=== PATIENT | male | born 1950 | race Caucasian/White ===

== ENCOUNTER 2018-02-25 13:54 | Outpatient (REF) | payer MEDICARE, BC, SELFPAY ==
--- NOTE | 2018-02-25 13:49 | SKI_PTH ---
PATIENT: Nicholas Seth LOC: [facility] U#:[id number] AGE/SX: 67/M ROOM: RE02/25/[address]: Anders Al DO : 1950 BED: DIS: 02/25/2018 SPEC #: [id number] RECD: 02/25/18 18:09 STATUS: ALVARO REQ #: [id number] MARTÍN: 02/25/18 13:[address]: Anders Al DEPT: Surgical Specimen RECD BY: Kaya Mcgrath ENTERED: 02/25/18 18:12 SP TYPE: SKI OTHR DR: Joana Jane Tissues: 1 - SKIN BIOPSY(SHAVE/PUNCH) 2 - SKIN BIOPSY(SHAVE/PUNCH) Procedures: SKIN LEVEL 4 Comments: [id number]
== END 2018-02-25 14:14 ==
LOC: LBN 13:54
PROVIDERS: PCP Nurse Practitioner; Visit Provider Otolaryngology Otolaryngology/Facial Plastic Surgery
DX: L57.0 Actinic keratosis (principal)
CPT/HCPCS: 88305

== ENCOUNTER 2018-03-18 17:57 | Outpatient (REF) | payer MEDICARE, BC, SELFPAY ==
[2018-03-18 21:26] LABS: Anion Gap 9.6 mmol/L (3-11); BUN 17 mg/dL (7-18); CO2 30.4 mmol/L (21.0-32.0); CREATININE 1.15 mg/dL (0.70-1.30); Calcium 9.1 mg/dL (8.5-10.1); Chloride 98 mmol/L (98-107); Glucose 95 mg/dL (70-100); Potassium 3.9 mmol/L (3.5-5.1); Sodium 138 mmol/L (136-145)
== END 2018-03-18 18:17 ==
LOC: NCHCN 17:57
PROVIDERS: PCP Nurse Practitioner; Visit Provider Nurse Practitioner
DX: I10 Essential (primary) hypertension (principal)
CPT/HCPCS: 80048

== ENCOUNTER → 2018-08-12 15:06 | Outpatient (BNVA) | payer MEDICARE, BC, SELFPAY | PROVIDERS: PCP Nurse Practitioner; Referring Provider Nurse Practitioner; Visit Provider Student in an Organized Health Care Education/Training Program | DX: M17.11 Unilateral primary osteoarthritis, right knee (principal); M25.561 Pain in right knee; M17.12 Unilateral primary osteoarthritis, left knee | CPT/HCPCS: 20610; 99212; 99213; J1040 ==

== ENCOUNTER → 2018-09-16 15:11 | Outpatient (BNVA) | payer MEDICARE, BC, SELFPAY | PROVIDERS: PCP Nurse Practitioner; Referring Provider Nurse Practitioner; Visit Provider Student in an Organized Health Care Education/Training Program | DX: M25.562 Pain in left knee (principal); M17.12 Unilateral primary osteoarthritis, left knee; M17.11 Unilateral primary osteoarthritis, right knee | CPT/HCPCS: 99213 ==

== ENCOUNTER → 2019-04-24 15:51 | Outpatient (BNVA) | payer MEDICARE, BC, SELFPAY | PROVIDERS: PCP Nurse Practitioner; Referring Provider Nurse Practitioner; Visit Provider Physical Therapy Assistant | DX: Z12.11 Encounter for screening for malignant neoplasm of colon (principal); I10 Essential (primary) hypertension ==

== ENCOUNTER 2019-05-05 12:56 | Day surgery (SDC) | payer MEDICARE, BC, SELFPAY ==
--- NOTE | 2019-05-05 07:08 | COLE_ITS ---
Date of service: 05/05/19 Time of Service: 14:01 Colonoscopy Report Date of procedure: 05/05/19 Pre-op diagnosis general: Colon Cancer Screening Post-op diagnosis procedure note: other (polyps and scattered diverticulosis) Procedure: Colonoscopy with polypectomy Surgeon: Mimi Bledsoe Anesthesia proc note operative: other (General/ ASA 2/ Chelsey Khan CRNA) Estimated blood loss (mL): 5 Pathology: other (Ascending polyp, Transverse polyp x2, and Descending polyp) Complications: None Disposition: other (General/ ASA /) Indications: 68 y/o male with history of HTN presents for colonoscopy screening pre-op. His last screening was 12-15 years in [place], which was unremarkable. He denies a family history of colon cancer. He denies any changes in bowel habits including black tarry stools, abdominal pain, diarrhea or constipation. Of note he reports, over the past 6 months he has had 2 episodes of spots of blood on his BM. The bleeding does not persist and resolves spontaneously. Risks, benefits and complications have been reviewed. Complications include but are not limited to bleeding, pain, perforation, missed small lesion/polyp, sore throat, aspiration and adverse reaction to the medications. Questions were entertained and answered to their satisfaction and they wished to proceed. No guarantees were given or implied. Prep: Miralax/Dulcolax Procedure Start Time: 14:01 Procedure End Time: 14:44 Retraction Time: 29 minutes Findings: 4 polyps noted as well as scattered diverticula throughout the colon Procedure Description: After informed consent was obtained the patient was taken to the procedure room and placed in a left decubitous position. Monitors were applied and a time out was done. The patients name, date of , procedure, allergies to medications and metal in their body was reviewed. The patient was then sedated. Once sedated and comfortable a rectal exam was done. External exam was normal. Internal exam revealed a normal sphincter tone and no palpable masses. The prostate felt smooth. The scope was then introduced and retro-flexed. No internal hemorrhoids, polyps or masses were identified on retro-flexion. The scope was then advanced to the cecum without difficulty. The TI and appendiceal orifice were identified. The prep was adequate. The scope was then slowly retracted over 29 minutes back into the rectum. Polyps were removed in the ascending, transverse x2, and descending colon. mild donis-diverticulosis was also noted. The scope was removed and the patient was woken up and taken back to Same day surgery in stable condition. The patient tolerated the procedure well and there were no immediate complications. Follow up: The patient should follow up in 3-5 years unless they develop changes in bowel habits or other new gastrointestinal complaints.
--- NOTE | 2019-05-05 07:09 | W.PM.DSUDISC ---
Discharge Plan Disposition Patient Disposition: HOME Condition: Good Discharge Details Reason For Visit: SCREENING Attending Provider: Mimi Bledsoe Primary Care Provider: An Sheffield Home Meds and New Rx's Prescriptions: Continued simvastatin 10 MG tablet 10 mg PO DAILY RF: 0 Denavir 1.5 GM cream 1 ea Topical PRN PRNRF: 0 hydrochlorothiazide 25 MG tablet 25 mg PO DAILY RF: 0 sertraline 50 MG tablet 50 mg PO DAILY RF: 0 Discontinued polyethylene glycol 3350 17 gram/dose powder 238 g PO ONCE Qty: 238 RF: 0 bisacodyl [Dulcolax (bisacodyl)] 5 mg tablet,delayed release (DR/EC) 5 mg PO ONCE Qty: 4 RF: 0 Discharge Instructions Instructions: Colorectal Polyps (DC), Diverticulosis (DC) Additional Instructions: Findings: 4 polyps Diverticulosis Follow up: 3-5 years Please call if you develop: fevers >101.5 Nausea or Vomiting Abdominal pain that is not transient DAY SURGERY UNIT POST ENDOSCOPY INSTRUCTIONS 1. Because there will be medication in your system for the next 24 hours, you may feel a little sleepy. Your coordination will be affected. Therefore: a. Do not drive or operate dangerous equipment for 24 hours. b. Do not drink alcohol beverages for 24 hours (not even beer). c. Plan to go home and rest for the day. 2. Generally there are no restrictions on your activity after a day or so has gone by, but you may feel a bit fatigued for a few days. 3 After you arrive home you may have a light meal and return to a normal diet as you can tolerate it without feeling sick to your stomach. 4. After surgery, you may feel pain or discomfort. This should be only transient, but if it persists please contact your doctor. 5. If there are any questions regarding the findings of your procedure, please feel free to contact your doctor. 6. If you are unable to contact your doctor with a problem, contact the hospital at [phone]. 7. Continue all your regular medications unless directed otherwise. I understand the above instructions and have no questions. Signature of Patient or Responsible Adult Escort Date/Time Name of Responsible Adult Escort Signature of Nurse Date/Time Activity:: Activity as Tolerated Diet:: high fiber diet Discharge Orders Discharge Orders: Discharge Order (Routine); Ordered 05/05/19 Ordered By: Mimi Bledsoe
[2019-05-05 13:00] VITALS: BP 146/80; PULSE 73; RESP 16; TEMP 36.2; O2SAT 98
[2019-05-05] MEDS: Lactated Ringers 1,000 ML 80 ML IV (13:42)
--- NOTE | 2019-05-05 14:23 | BOWEL_PTH ---
PATIENT: Nicholas Seth LOC: [facility] U#:[id number] AGE/SX: 68/M ROOM: RE05/05/[address]: Mimi Bledsoe MD : 1950 BED: DIS: 05/05/2019 SPEC #: [id number] RECD: 05/05/19 18:09 STATUS: ALVARO RE #: [id number] MARTÍN: 05/05/19 14:[address]: Mimi Bledsoe DEPT: Surgical Specimen RECD BY: Kaya Mcgrath ENTERED: 05/05/19 18:10 SP TYPE: Bowel OTHR DR: An Sheffield Tissues: 1 - BIOPSY BOWEL 2 - BIOPSY BOWEL 3 - BIOPSY BOWEL Procedures: GROSS AND MICRO LEVEL 4 Comments: [id number]
[2019-05-05 15:15] VITALS: BP 143/79; PULSE 60; RESP 18; TEMP 36.4; O2SAT 97
== END 2019-05-05 15:56 | disposition home or self-care (01) ==
LOC: SUR 12:56
PROVIDERS: PCP Family Medicine; Visit Provider Surgery
PROC: 0DJD8ZZ Inspection of Lower Intestinal Tract, Via Natural or Artificial Opening Endoscopic (ICD-10-PCS; CPT 45378; principal; 2019-05-05 14:15)
DX: Z12.11 Encounter for screening for malignant neoplasm of colon (principal); D12.2 Benign neoplasm of ascending colon; D12.3 Benign neoplasm of transverse colon; K57.30 Diverticulosis of large intestine without perforation or abscess without bleeding; I10 Essential (primary) hypertension; G47.33 Obstructive sleep apnea (adult) (pediatric); Z99.89 Dependence on other enabling machines and devices
CPT/HCPCS: 45380; 88305

== ENCOUNTER 2019-05-07 12:39 | Outpatient (REF) | payer MEDICARE, BC, SELFPAY | END 2019-05-07 12:59 | LOC: NCHCN 12:39 | PROVIDERS: PCP Family Medicine; Visit Provider Family Medicine | DX: K12.2 Cellulitis and abscess of mouth (principal) | CPT/HCPCS: 87070 ==

== ENCOUNTER 2019-05-12 09:40 | Outpatient (CLI) | payer MEDICARE, BC, SELFPAY ==
--- NOTE | 2019-05-12 08:45 | DI.RAD_ITS ---
EXAM: XR KNEE LT 1V, XR KNEE RT 1V, XR STANDING ALIGNMENT INDICATION: knee pain. TECHNIQUE: 2D digital imaging was performed. FINDINGS: There are small bilateral joint effusions. There is mild spurring at the articular aspect of the pa tella bilaterally. There is severe narrowing of the left medial femoral tibial joint and periarticul ar spurring. There is varus angulation. Moderate to severe degenerative changes are seen at the med ial femoral tibial joint of the right knee, also causing some varus angulation. The hip joint spaces and ankle joint spaces are well maintained. The right femoral head projects 12 millimeters superior to the left. IMPRESSION: Degenerative changes of both knees, left greater than right. Leg length discrepancy. DATA REPOSITORY: RADIATION DOSE DELIVERED:
== END 2019-05-12 10:00 ==
PROVIDERS: PCP Family Medicine; Referring Provider Nurse Practitioner; Visit Provider Student in an Organized Health Care Education/Training Program
DX: M25.561 Pain in right knee (principal); M25.562 Pain in left knee; M17.0 Bilateral primary osteoarthritis of knee; M21.70 Unequal limb length (acquired), unspecified site; M25.461 Effusion, right knee; M25.462 Effusion, left knee; M17.12 Unilateral primary osteoarthritis, left knee
CPT/HCPCS: 99213; 73560; 77073

== ENCOUNTER 2019-07-15 08:57 | Outpatient (REF) | payer MEDICARE, BC, SELFPAY ==
[2019-07-15 21:28] LABS: HCT 43.3 % (40.0-50.0); HGB 15.4 g/dL (13.5-17.5); Mean Corp. HGB Concentration 35.6 g/dL (32.0-36.0); Mean Corpuscular Hemoglobin 32.6 pg (27.0-33.0); Mean Corpuscular Volume 91.5 fL (80-95); Mean Platelet Volume 10.1 fL (8.0-11.0); Platelet Count 242 x1000/uL (130-400); RBC 4.73 m/cumm (4.50-6.00); RBC Distribution Width 12.3 % (11.8-14.1); White Blood Cell Count 7.09 k/cumm (4.4-10.8)
[2019-07-15 23:21] LABS: ALT 20 U/L (16-63); AST 25 U/L (15-37); Anion Gap 5.4 mmol/L (3-11); BUN 18 mg/dL (7-18); CO2 32.6 mmol/L (21.0-32.0); Calcium 8.9 mg/dL (8.5-10.1); Calculated LDL 167 mg/dL (<100); Chloride 103 mmol/L (98-107); Cholesterol 249 mg/dL (<200); Folate 17.6 ng/mL (8.6-20.0); Glucose 86 mg/dL (74-106); HDL Cholesterol 47 mg/dL (40-60); Magnesium 2.2 mg/dL (1.8-2.4); Potassium 4.2 mmol/L (3.5-5.1); Sodium 141 mmol/L (136-145); TSH (W/Ref FT4) 1.56 uIU/mL (0.36-3.74); Triglyceride 178 mg/dL (<150); Vitamin B12 294 pg/mL (193-986)
== END 2019-07-15 09:17 ==
LOC: NCHCN 08:57
PROVIDERS: PCP Family Medicine; Visit Provider Nurse Practitioner Family
DX: E78.5 Hyperlipidemia, unspecified (principal); G25.81 Restless legs syndrome
CPT/HCPCS: 80048; 80061; 85027; 82607; 82746; 83735; 84443; 84450; 84460

== ENCOUNTER 2019-08-22 03:46 | Outpatient (CLI) | payer MEDICARE, BC, SELFPAY ==
[2019-08-23 01:20] LABS: COVID-19 RT-PCR UVMMC Result Negative (Negative)
== END 2019-08-22 04:06 ==
PROVIDERS: PCP Family Medicine; Visit Provider Student in an Organized Health Care Education/Training Program
DX: Z11.59 Encounter for screening for other viral diseases (principal); Z01.818 Encounter for other preprocedural examination
CPT/HCPCS: 36415; 80048; 85027; U0003

== ENCOUNTER 2019-08-22 08:40 | Outpatient (CLI) | payer MEDICARE, BC, SELFPAY ==
[2019-08-22 10:44] LABS: HGB 14.9 g/dL (13.5-17.5); Mean Corp. HGB Concentration 35.5 g/dL (32.0-36.0); Mean Corpuscular Hemoglobin 32.9 pg (27.0-33.0); Mean Corpuscular Volume 92.7 fL (80-95); Mean Platelet Volume 9.9 fL (8.0-11.0); Platelet Count 217 x1000/uL (130-400); RBC 4.53 m/cumm (4.50-6.00); RBC Distribution Width 12.6 % (11.8-14.1); White Blood Cell Count 8.54 k/cumm (4.4-10.8)
[2019-08-22 11:49] LABS: Anion Gap 7.6 mmol/L (3-11); BUN 18 mg/dL (7-18); CO2 31.4 mmol/L (21.0-32.0); CREATININE 1.05 mg/dL (0.70-1.30); Calcium 8.9 mg/dL (8.5-10.1); Chloride 104 mmol/L (98-107); Glucose 88 mg/dL (74-106); Potassium 3.9 mmol/L (3.5-5.1); Sodium 143 mmol/L (136-145)
== END 2019-08-22 09:00 ==
PROVIDERS: PCP Family Medicine; Visit Provider Student in an Organized Health Care Education/Training Program
DX: M17.12 Unilateral primary osteoarthritis, left knee (principal); M25.562 Pain in left knee; Z01.818 Encounter for other preprocedural examination; Z01.812 Encounter for preprocedural laboratory examination
CPT/HCPCS: 36415; 80048; 85027

== ENCOUNTER → 2019-08-26 08:11 | Outpatient (BNVA) | payer MEDICARE, BC, SELFPAY | PROVIDERS: PCP Family Medicine; Referring Provider Family Medicine; Visit Provider Student in an Organized Health Care Education/Training Program | DX: R69 Illness, unspecified (principal) ==

== ENCOUNTER 2019-08-26 10:57 | Observation (INO) | payer MEDICARE, BC, SELFPAY ==
--- NOTE | 2019-08-22 14:25 | INITIAL_ITS ---
- If Service Date Differs Date of service: 08/22/19 Time of Service: 14:25 Care Management Initial Assess REASON FOR HOSPITALIZATION:: Total knee replacement (left). 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 Surgical history: History of hernia repair and history of colonoscopy ? tubular adenoma x 4. PREVIOUS FUNCTIONAL STATUS/SOCIAL/FAMILY SUPPORTS:: Nicholas lives in [place] with his , Monserrat. 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 The couple has a daughter who will be available to help at home after Nicholas's surgery as needed. Nicholas is independent with his ADLs at baseline. CURRENT FUNCTIONAL STATUS:: CM telephones Nicholas to assess potential needs and services post knee-surgery, scheduled on 08/26/2019. Nicholas is unavailable but CM speaks with his , Monserrat. She reports their home is a two-story house, but the first floor has a bathroom and she is making arrangements for Nicholas to be able to sleep on the first floor. She expresses some concern over getting Nicholas from the car, up one step and into the house when he returns home from the hospital. She goes on to say their daughter will be at the home to help him get into the house. ADVANCE DIRECTIVES:: None on file. Monserrat advises they are talking about completing advance directives but have not done so yet. Has patient been provided with info about the portal/API?: Yes Did the patient sign up for the portal?: Yes CODE STATUS:: Full Code INSURANCE COVERAGE / FINANCIAL ISSUES:: BS and Medicare. CURRENT HOME/COMMUNITY SERVICES/EQUIPMENT:: Nicholas has a CPAP, FWW, shower chair, and shower wand at home. He has no in-home or community services. PRIMARY CARE PHYSICIAN:: An Sheffield MD ([facility]). POTENTIAL DISCHARGE NEEDS:: Follow-up appointment with Dr. Jolly and outpatient physical therapy. PATIENT/FAMILY EDUCATION NEEDS:: Discharge instructions, limitations, follow-up plan, including Ask Me Three and self-management. ANTICIPATED BARRIERS TO DISCHARGE:: No barriers anticipated at this time. TRANSPORTATION:: Via private vehicle with family. PLAN:: Nicholas will be discharged home when medically cleared by provider. He will follow up with Dr. Jolly, outpatient physical therapy and plan of care as directed. Nicholas will be driven home by his , Monserrat, via private vehicle when ready.
[2019-08-26 11:04] VITALS: BP 122/79; PULSE 64; RESP 16; TEMP 36.5; O2SAT 98
[2019-08-26] MEDS: Acetaminophen 500 MG TAB 1000 MG PO (11:27)
[2019-08-26] MEDS: Gabapentin 300 MG CAP PO (11:27)
[2019-08-26] MEDS: Celecoxib 200 MG CAP 400 MG PO (11:27)
[2019-08-26] MEDS: Lactated Ringers 1,000 ML 80 ML IV (11:45)
[2019-08-26] MEDS: ceFAZolin 2 GM/50 ML BAG IVPB (12:30)
[2019-08-26] MEDS: Ketorolac 30 MG/ML VIAL (12:58)
[2019-08-26] MEDS: Bupivacaine 0.25% Pres-Free 30 ML VIAL (12:58)
[2019-08-26] MEDS: Normal Saline 20 ML VIAL (12:58)
[2019-08-26 14:27] VITALS: BP 108/69; PULSE 65; RESP 12; TEMP 36.7; O2SAT 97
[2019-08-26 14:32] VITALS: BP 115/70; PULSE 50; RESP 12; TEMP 36.7; O2SAT 98
--- NOTE | 2019-08-26 14:32 | W.PM.OP ---
Date of service: 08/26/19 Time of Service: 14:32 Operative Note Operative Note DATE OF PROCEDURE: 08/26/19 PRE-OP DIAGNOSIS: Left Knee Osteoarthritis POST-OP DIAGNOSIS: same PROCEDURE: Left Total Knee Replacement SURGEON: Dillon Jolly [employer] I ASSEMBLER: Kelley Mortensen ANESTHESIA: regional and spinal ESTIMATED BLOOD LOSS: 300 PATHOLOGY: none sent TOURNIQUET TIME: 0 COMPLICATIONS: None Patient was transported to: PACU Patient's condition: stable Implants: 1. Depuy Attune Cementless Cruciate Retaining Femoral Component, Size 7 2. Depuy Attune Cementless Rotating Platform Tibial Component, Size 8 3. Depuy Attune 7x6mm CR/RP Poly 4. Depuy Attune Patellar Component, Size 38mm Indications: I have seen Nicholas in clinic for symptoms of knee arthritis, confirmed with radiographic findings. Nicholas has exhausted nonoperative methods and was having significant limitations in daily function and desired better function and less pain. I discussed the technical details of a knee replacement. I explained the risks of the procedure to include, but not limited to, bleeding, infection, pain, stiffness, fracture, damage to nerves and vessels, damage to muscles and tendons, loosening, need for repeat procedure, blood clot and cardiopulmonary demise. Despite these risks, he elected to proceed. Findings: There was significant signs of arthritis throughout the knee, mostly of the medial compartment. Procedure Description: Nicholas was greeted in the preoperative holding area where the correct side was identified and marked. The consent was reviewed with the patient and signed. The history and physical was updated. All questions were answered. Preoperative medications were administered: Acetaminophen 1000mg, Celebrex 400mg, and Gabapentin 300mg. An adductor canal block was then administered by the anesthesia team in the PACU. Nicholas was taken back to the operating room. A spinal anesthestic was then administered. The patient was placed into the supine position on the operating room table. A nonsterile tourniquet was placed high onto the leg but only used for cementing. Posts were placed for positioning during the procedure. All bony prominences were well padded. Prophylactic antibiotics in the form of Cefazolin were administered. 1g of Tranxemic Acid was given intravenously within 30 minutes of incision. The left leg was then prepped with Chloraprep and draped in a standard fashion with impervious stockinette. A second prep with Chloraprep was performed prior to application of Iodine impregnated skin protection. A timeout to confirm correct identity, side and site, procedure, allergies, anesthesia, and medical concerns was performed. With the knee in some flexion, a midline incision was made overlying the knee. Full thickness skin flaps were raised once the extensor mechanism was encountered. These were raised medially and laterally. Any bleeding was controlled with electrocautery. Once the extensor mechanism was fully exposed, a medial parapatellar arthrotomy was performed in a flexed position. All bleeding from the arthrotomy and the geniculate arteries was coagulated. A medial subperiosteal peel was performed with electrocautery to the midcoronal plane. The fat pad was removed while keeping the patellar tendon protected. The anterior distal femur synovium was removed for later visualization. The ACL and PCL were resected and the anterior horn of the lateral meniscus was transected. The knee was then flexed with the patella everted. Large osteophytes from the tibia were removed. Large osteophytes from the femur were removed. Using a step drill, and based on preoperative templating, the femoral canal was entered. This was done with a step drill without any difficulty. The intramedullary distal femoral cut guide was inserted, set to a 5 degree valgus cut and 9mm cut thickness. The distal femoral cut guide was then held in position and pinned. With the soft tissues protected, the distal cut was performed. This was passed over a few times to ensure a planar cut. I then turned attention to the tibia. The extramedullary guide was placed onto the leg. The distal aspect was slid medial to adjust for position of center of ankle and stay in line with shaft of the tibia. Approximately 3-5 degrees of posterior slope was kept in the proximal cutting guide. The center of the guide was aligned with the PCL. The stylus was used to assess cut thickness. The medial side, most involved side, was set for a 2mm cut, corresponding to 9mm laterally. This was then held in position and pinned into place with 2 additional pins and a cross pin for stability. The medial and lateral collateral ligaments were protected and the cut was performed. With this completed, it was assessed and noted to be of appropriate dimensions. The guide was removed. A spacer block was inserted and the knee was brought into extension. The 6mm spacer block provided full extension, without hyperextension and with stability of both the medial and lateral collateral ligaments was assessed. The pins from the femur and the tibia were then removed. The distal femur was then sized. The anterior stylus was placed onto the lateral ridge of the anterior femur. This indicated a size 7 femur. The external rotation of the guide was adjusted to 3 degrees to match the epicondylar axis, perpendicular to [place]?s line. The 4-in-1 cutting guide was the placed. The posterior medial femur cut was evaluated and appeared of good thickness. The spacer block was inserted underneath the cutting guide and stability was confirmed in 90 degrees of flexion. An anca wing was used to confirm appropriate position of the anterior cut to avoid notching. This cutting guide was ensured to be flush on the cut surface and then pinned into place with headed pins. While protecting the soft tissues, quad tendon, and collateral ligaments, the anterior and posterior cuts were performed with a saw. The central two pins were removed and the posterior and anterior chamfers were cut next. The notch-cutting guide was placed. This was pinned to lateralize the femoral component as much as possible while keeping it flush on the cut surface. This was then pinned into position. A reciprocating saw was used to make the notch cut. A rasp smoothed the cut surfaces. The medial and lateral menisci were removed. A trial femoral component was then inserted, impacted down to the cut surfaces, and the lug holes were drilled. A provisional trial tibial component was placed and the knee was brought through range of motion. There was noted to be excellent extension and flexion. There was no significant instability. The patella was tracking without thumbs. A size 6mm polyethylene component provided the best range of motion and stability with less than 2mm gapping with medial and lateral stress and full extension without significant hyperextension. The tibial cut surface was fully exposed. The tibia was then sized as a 8. The tibia had been previously marked during trialing to correspond to the center of the tibial component to help with rotation. The trial was aligned to this asia, approximately rotated to the medial 1/3rd of the tibial tubercle. The trial was pinned into place. The tibia was prepared with a reamer and a keel punch and lug holes. The knee was then brought into extension and the patella was measured as 27mm. Using the patellar clamp and cut guide, this was resected to a flat surface with at least 13mm of thickness remaining. The size 38 patella fit the best. This was oriented and then clamped into position. The lugs were drilled. The trial components were removed. The final components were opened on the back table. The periosteal and capsular tissues, especially posteriorly, around the knee were then systematically injected with a periarticular cocktail consisting of 50cc 0.25% Marcaine, 30mg Ketorolac, 20cc of Exparal and 50cc of injectable saline. The knee was thoroughly irrigated with a pulse lavage and dried. Irrisept was also used to irrigate the tissues. On the back table, with the implants opened, the cement was mixed. One batche of high viscosity cement were prepared with vacuum assistance. After the cement was ready a small amount was placed on the cut surface of the patella and the patellar button was clamped into position and held. During this process attention was turned to the gutters of the knee and for all interfaces for any excess cement. While the cement was hardening, the cementless knee components were placed. Starting with the tibial component, the tibia was subluxed anteriorly and the lug holes of the component were lined up. The tibia was then impacted with an impactor and mallet until the tibial component was in contact with the tibia. The final polyethylene component was inserted. Then, the femoral component was inserted. The lug holes were aligned and the component was impacted into position. The knee was irrigated with Irrisept chlorhexadine solution. This was allowed to sit in the knee for 3 minutes. After the cement had finally cured, approximately 15min, the clamp was removed from the patella and the knee was taken through range of motion. The patella was tracking with a no-thumbs technique. The capsule was then reapproximated with a No. 1 Vicryl at multiple locations. The capsule was finally closed with a No. 2 Stratafix, barbed suture. The tourniquet was then released and the arthrotomy appeared watertight without significant bleeding. The second dosing of 1g TXA was started. Deep tissues were then reapproximated with 0 Vicryl and 2-0 Vicryl. The skin was closed with a running 3-0 Monocryl in a subcuticular fashion. This was reinforced with skin glue. A Mepilex silver dressing was applied along with a [id number] DAVIS wrap. A CryoCuff was applied. Nicholas was transferred to the hospital bed without difficulty an suffering no apparent complication. Nicholas has a good prognosis. Physical therapy will start today and without restrictions, weight-bearing as tolerated. Aspirin 81mg BID will be used for DVT prophylaxis.
[2019-08-26 14:37] VITALS: BP 111/68; PULSE 50; RESP 17; TEMP 36.7; O2SAT 96
--- NOTE | 2019-08-26 14:43 | DSE_ITS ---
Date of service: 08/26/19 Time of Service: 14:43 DS: Diagnosis Discharge Diagnosis (1) Primary osteoarthritis of left knee: Status: Acute Discharge Plan Disposition Patient Disposition: HOME Condition: Good Discharge Details Reason For Visit: Let Knee DJD Admit Date/Time: 08/26/19 10:57 Admit Provider: Dillon Jolly Attending Provider: Dillon Jolly Primary Care Provider: An [facility] Course Hospital Course: Patient was admitted to the medical/surgical floor following the procedure. The surgery was tolerated well without any notable medical, surgical, or anesthetic complications. Mobilization began postoperatively. Peter was voiding spontaneously. Vitals were stable. Physical therapy worked with the patient and was cleared for discharge home. No acute medical issues. Pain was controlled on oral regimen. Home Meds and New Rx's Prescriptions: New celecoxib 200 mg capsule 200 mg PO BID PRN (Reason: pain) Qty: 60 RF: 1 aspirin 81 mg tablet,delayed release (DR/EC) 81 mg PO BID Qty: 60 RF: 0 acetaminophen 500 mg tablet 1,000 mg PO Q8H PRN (Reason: pain) Qty: 90 RF: 3 docusate sodium [Colace] 100 mg capsule 100 mg PO BID PRNQty: 10 RF: 0 oxycodone 5 mg tablet 5 mg PO Q4H Qty: 18 RF: 0 omeprazole 20 mg capsule,delayed release(DR/EC) 20 mg PO DAILY Qty: 30 RF: 0 Continued Denavir 1.5 GM cream 1 ea Topical PRN PRNRF: 0 hydrochlorothiazide 25 MG tablet 25 mg PO DAILY RF: 0 sertraline 50 MG tablet 50 mg PO DAILY RF: 0 rosuvastatin 20 mg tablet 20 mg PO HS RF: 0 Discharge Instructions Additional Instructions: Dr. Jolly?s Total Knee Discharge Instructions Activity: The most important activity is to walk. You should try to take short walks a few times a day. It is important that when resting you work on keeping the knee straight. Avoid putting a pillow behind the knee as this will encourage flexion. Work on range of motion exercises as provided by Physical Therapy and the preoperative booklet. - Start outpatient physical therapy within 2 weeks. - You should wear the BLAYNE hose on both legs for 2 weeks. Dressing: Keep the surgical dressing (Mepilex) in place for at least one week. If you went home on the surgical day, you should remove the DAVIS wrap on the second day and then apply the BLAYNE hose. The dressing may get wet after 3 days but avoid soaking the dressing. If it gets wet, just lightly pat dry. Most p atient prefer to cover with ClingWrap or Saran Wrap to keep the dressing dry. After the first week, the dressing may be removed and replaced with light gauze and tape or nothing. Medications: - You should take Tylenol and anti-inflammatory Celebrex as your primary pain control medications - You have been prescribed a stronger pain medication Oxycodone for breakthrough pain, take as needed as prescribed. - You have also been prescribed a stomach acid reduction agent Omeprazole to help reduce stomach acid and reflux. - You will be taking Aspirin 81mg twice a day for DVT prevention unless instructed otherwise. - If you have constipation you should take Colace or Miralax (both [id number]). It takes most people 3-4 days to have a bowel movement. Follow-up: 2 weeks. You should also call physical therapy to work on scheduling outpatient therapy sessions which can begin at 2 weeks. If you have any acute concerns or questions, please do not hesitate to contact the office at [phone]. You may contact Dr. Jolly with any questions after hours through the hospital at [phone] or on his cell phone at [phone]. Referrals: Dillon Jolly MD [ [facility] STAFF PHYSICIAN] - 09/11/19 9:30 am Activity:: Activity as Tolerated Equipment/Supplies:: Walker Diet:: As Tolerated Discharge Orders Discharge Orders: Discharge Order (Routine); Ordered 08/26/19 Ordered By: Dillon Jolly DS: Summary Status at Discharge Functional status at discharge: uses cane/walker Overall status at discharge: patient is progressing back to baseline Mental Status: mental status grossly normal Speech and Movement: speech and movement normal Mood: congruent mood Affect: normal affect Exam Psych Mental Status: mental status grossly normal Speech and Movement: speech and movement normal Mood: congruent mood Affect: normal affect DS: Data Vitals/I&O Vitals and I&O: Vital Signs Temperature 36.7 C 08/26/19 14:37 Pulse 50 L 08/26/19 14:37 Pulse Rhythm Regular 08/26/19 11:04 Respiratory Rate 17 08/26/19 14:37 Respiratory Effort 08/26/19 11:04 Respiratory Depth Normal 08/26/19 11:04 Respiratory Pattern Normal 08/26/19 11:04 Blood Pressure 111/68 08/26/19 14:37 Pulse Oximetry 96 08/26/19 14:37 Oxygen Delivery Method Room Air 08/26/19 14:37 Oxygen Flow Rate 0 08/26/19 11:04 Pain Level 0 08/26/19 14:37 Intake & Output 08/25/19 08/26/19 08/26/19 23:59 11:59 23:59 Intake Total 870 / 870 Output Total 200 / 200 Balance 670 / 670 Weight 99.7 kg Intake: IV 870 / 870 Output: Estimated Blood Loss 200 / 200 Other: Urine Appearance Clear Emesis Description None PFSH Medical History Hx of psoriasis (Acute) Hx of sleep apnea (Acute) uses CPAP Surgical History H/O vasectomy (Acute) History of hernia repair (Chronic) Hx of colonoscopy (Chronic ~04/2019) AK - Tubular adenoma x4. Social History Smoking/Tobacco Use Status: Former Tobacco Use Quit Date: 03/12/89 Alcohol Intake: current Alcohol Intake frequency: a few times a week Alcohol type: hard liquor Drug use: Never Substance use type: does not use Current gender identity: male Do you feel safe at home: Yes Do you feel safe in your relationship?: Yes
[2019-08-26 14:51] VITALS: BP 115/72; PULSE 56; RESP 13; TEMP 36.7; O2SAT 95
[2019-08-26 15:20] VITALS: BP 122/66; PULSE 51; RESP 18; TEMP 36.5; O2SAT 96
--- NOTE | 2019-08-26 16:05 | PT.INIE ---
Date of service: 08/26/19 Time of Service: 16:05 PT Notes Visit Reasons: Let Knee DJD Physical Therapy Inpatient Initial Evaluation Date: 08/26/2019 Referring Doctor: Dillon Jolly MD PT Orders: PT CONSULT: Status post Ortho surgery. Status post left TKA. Precautions: Fall. Standard. WBAT on left LE. Patient Profile/Admitting Diagnosis: Nicholas is a 69-year-old male with primary unilateral osteoarthritis of the left knee status post left knee total arthroplasty on postoperative day 0. PMHX: Medical History Hx of psoriasis (Acute) Hx of sleep apnea (Acute) uses CPAP Surgical History (Updated 08/25/19 @ 08:38 by Jose Lou) H/O vasectomy (Acute) History of hernia repair (Chronic) Hx of colonoscopy (Chronic ~04/2019) [place] - Tubular adenoma x4. Social History/Home Situation: Nicholas lives with in a two-story home with 2 steps to enter without rails. Bedroom is on the second floor with 10 steps and a rail on one side. They have prepared a place for him on the main floor of the house so he does not need to deal with steps while he is recovering. Equipment Owned/DME: 4 wheeled walker, bilateral axillary crutches Subjective: I am amazed at how much I can do, I am surprised that I can even talk right now! Patient is very much happy with how the surgery went and wants to stay on top of the pain when he gets cleared to go home today. He states that he has not voided urine yet. Objective: General Observation: IV in the right UE. Wraps to left knee. TEDS on her right leg. Mental Status: Alert and oriented x4 Pain: Reports 1/10 in the left knee with weight bearing ROM: Right Upper Extremity: Shoulder Flexion WFL. Shoulder abduction WFL. Elbow flexion WFL. Wrist flexion WFL. Opening and closing of hand WFL. Left Upper Extremity: Shoulder Flexion WFL. Shoulder abduction WFL. Elbow flexion WFL. Wrist flexion WFL. Opening and closing of hand WFL. Right Lower Extremity: Hip flexion WFL. Hip abduction WFL. Knee flexion WFL. Ankle dorsiflexion WFL. Ankle plantarflexion WFL. Left Lower Extremity: Hip flexion WFL. Hip abduction WFL. Knee flexion -10 to 110 degrees. Knee extension -10 degrees.. Ankle dorsiflexion WFL. Ankle plantarflexion WFL. Strength: Right Upper Extremity: Shoulder flexors 5/5. Shoulder abductors 5/5. Elbow flexors 5/5. Elbow extensors 5/5. Construction Sales Representative strong. Left Upper Extremity: Shoulder flexors 5/5. Shoulder abductors 5/5. Elbow flexors 5/5. Elbow extensors 5/5. Construction Sales Representative strong. Right Lower Extremity: Hip flexors 5/5. Hip abductors 5/5. Knee flexors 5/5. Knee extensors 5/5. Ankle dorsiflexors 5/5. Ankle plantarflexors 5/5. Left Lower Extremity:Hip flexors 4/5. Hip abductors 4/5. Knee flexors 3-/5. Knee extensors 3-/5. Ankle dorsiflexors 5/5. Ankle plantarflexors 5/5. Sensation: Intact as to pain and pressure on bilateral lower extremities. Bed Mobility/Transfers: Supine to sit supervision Sit to supine supervision Sit to stand supervision with minimal cues needed for hand placement, needs front wheeled walker Stand to sit supervision with minimal cues needed for hand placement Bed to chair supervision with minimal cues needed for hand placement, needs front wheeled walker Chair to bed supervision with minimal cues needed for hand placement, needs front wheeled walker Gait: Patient tolerated level surface ambulation of 120 feet x 2 using front wheeled walker with step to gait pattern requiring standby assist of PT. Patient also managed six 4 inch steps while holding onto bilateral rails with step to gait pattern with supervision assist. Patient also was able to perform same number of steps using bilateral axillary crutches with just contact-guard assist using same gait pattern. Balance: Static Sitting: Normal Dynamic Sitting: Normal Static Standing: Fair Dynamic Standing: Fair Special Tests: Mobility Limitations Standardized Measure [facility] 6 clicks Basic Mobility Inpatient Short Form: Raw Score: 23 CMS Score: 11% deficit Informed Consent/Education: Patient instructed in purpose of PT consult and plan of care. Assessment: Nicholas demonstrates functional mobility decline and requires the use of a front wheeled walker for all mobility ADL performance. Nicholas is a 69-year-old male with primary unilateral osteoarthritis of the left knee status post left knee total arthroplasty on postoperative day 0. Patient presents with clinical signs and symptoms consistent with current/admitting diagnoses that have resulted to mobility limitations, gait instability, generalized weakness, and impairment of motor control as demonstrated by the following impairment level findings: 1. Minimal decreased strength to left knee major muscle groups 2. Minimal impaired standing balance 3. Minimal impaired activity tolerance 4. Minimal Limitation of joint range of motion in left knee Impairments are contributing to the following functional limitations: 1. Inability to safely ambulate without assistive device and physical assistance 2. Increase completion time for mobility ADL performance 3. Inability to negotiate steps alone safely Patient is assessed as a complexity based on the following: History: 69-year-old male with impairment level findings, functional limitations, and past medical history as indicated above Examination: Demonstrable impairment in strength, balance, and mobility level with underlying impairments and functional limitations as documented above Presentation:Evolving Decision Makin moderate complexity Goals: N/A. PT consult only. Plan of Care/Treatment Plan: N/A. PT consult only. PT Intervention: Today consisted of initial physical therapy evaluation as well as education training on functional mobility performance using front wheeled walker and bilateral axillary crutches. Patient was also educated on initial exercises in supine, sitting, and standing positions per TKA exercise protocol. DISCHARGE RECOMMENDATIONS: Home when medically cleared by orthopedic surgeon. No equipment needs at this time. Outpatient physical therapy according to orthopedic surgeon's timeline recommendations. TREATMENT CODE/TIME: 83509 X 25 minutes, 9753 x 25 minutes beginning at 16:05 PM. Thank you very much for this referral. Janie Ny PT, DPT, CLT [facility] [place], [place]
== END 2019-08-26 18:04 | disposition home or self-care (01) | DRG 470 ==
LOC: PDS 14:43 → MS 15:10 → PDS 08-27 13:21 → MS 08-27 13:22
PROVIDERS: Admitting Provider Student in an Organized Health Care Education/Training Program; PCP Family Medicine; Visit Provider Student in an Organized Health Care Education/Training Program
PROC: 0SRD0J9 Replacement of Left Knee Joint with Synthetic Substitute, Cemented, Open Approach (ICD-10-PCS; CPT 27447; principal; 2019-08-26 14:30)
DX: M17.12 Unilateral primary osteoarthritis, left knee (principal); M25.562 Pain in left knee; Z96.652 Presence of left artificial knee joint; G89.18 Other acute postprocedural pain; G47.33 Obstructive sleep apnea (adult) (pediatric)
CPT/HCPCS: 27447; C1776; 76942; 97162; 97530; NC; J0690; J1885; J2001; J2250; J2405

== ENCOUNTER 2019-09-11 09:30 | Outpatient (CLI) | payer MEDICARE, BC, SELFPAY | END 2019-09-11 09:50 | PROVIDERS: PCP Family Medicine; Visit Provider Student in an Organized Health Care Education/Training Program | DX: Z47.1 Aftercare following joint replacement surgery (principal); Z96.652 Presence of left artificial knee joint; M25.562 Pain in left knee ==

== ENCOUNTER 2019-09-11 10:47 | Outpatient (CLI) | payer MEDICARE, BC, SELFPAY ==
--- NOTE | 2019-09-11 09:30 | DI.RAD_ITS ---
EXAM: XR STANDING ALIGNMENT and XR knee LT 1 the CLINICAL HISTORY: 1ST POST OP. TECHNIQUE: 2D digital imaging was performed. COMPARISON: CR XR STANDING ALIGNMENT from 05/12/2019 FINDINGS: Since the prior examination the patient has undergone a left total knee replacement. The orthopedic h ardware appears in good position. The bones are intact. Vascular calcifications are seen in the soft tissues. In the right knee, there is moderate narrowing of the medial femoral tibial joint space wi th marginal osteophytes medially and laterally. The hips and ankles are well maintained. IMPRESSION: 1. Left total knee arthroplasty. 2. Mild osteoarthritis of the right knee. DATA REPOSITORY: RADIATION DOSE DELIVERED:
== END 2019-09-11 11:07 ==
PROVIDERS: PCP Family Medicine; Visit Provider Physician Assistant Surgical
DX: Z96.652 Presence of left artificial knee joint (principal); Z47.1 Aftercare following joint replacement surgery; M17.11 Unilateral primary osteoarthritis, right knee
CPT/HCPCS: 73560; 77073

== ENCOUNTER 2020-04-14 10:58 | Outpatient (REF) | payer MEDICARE, BC, SELFPAY ==
[2020-04-14 13:08] LABS: Abs Immature Grans 0.02 10^3/uL (0.0-0.06); Absolute Basophil Count 0.04 10^3/uL (0.0-0.2); Absolute Eosinophil Count 0.35 10^3/uL (0.0-0.7); Absolute Lymphocyte Count 1.04 10^3/uL (1.2-3.4); Absolute Monocyte Count 0.57 10^3/uL (0.1-0.8); Absolute Neutrophil Count 5.91 10^3/uL (1.2-6.7); Basophils % 0.5; Eosinophils % 4.4; HCT 43.5 % (40.0-50.0); HGB 15.1 g/dL (13.5-17.5); Immature Grans % 0.3; Lymphocytes % 13.1; MCH 31.5 pg (27.0-33.0); MCHC 34.7 % (32.0-36.0); MCV 90.6 fL (80-95); Monocytes % 7.2; Neutrophils % 74.5; Nucleated RBC 0 %; Platelet Count 253 10^3/uL (130-400); RDW 11.9 % (11.8-14.1); RDW-SD 39.8 fL; WBC 7.93 10^3/uL (4.4-10.8)
[2020-04-14 13:42] LABS: ALT 14 U/L (16-63); AST 20 U/L (15-37); Albumin 3.9 g/dL (3.4-5.0); Alkaline Phosphatase 83 U/L (46-116); Anion Gap 6.8 mmol/L (3-11); BUN 18 mg/dL (7-18); Bilirubin, Total 0.5 mg/dL (0.2-1.0); CO2 29.2 mmol/L (21.0-32.0); Calcium 8.9 mg/dL (8.5-10.1); Calculated LDL 229 mg/dL (<100); Chloride 103 mmol/L (98-107); Cholesterol 307 mg/dL (<200); Glucose 80 mg/dL (74-106); HDL Cholesterol 46 mg/dL (40-60); Potassium 3.7 mmol/L (3.5-5.1); Sodium 139 mmol/L (136-145); TSH (W/Ref FT4) 1.65 uIU/mL (0.36-3.74); Total Protein 6.7 g/dL (6.4-8.2); Triglyceride 163 mg/dL (<150); Vitamin B12 313 pg/mL (193-986)
== END 2020-04-14 10:59 | disposition home or self-care (01) ==
LOC: NCHCN 10:58
PROVIDERS: PCP Family Medicine; Visit Provider Family Medicine
DX: R41.3 Other amnesia (principal); E78.5 Hyperlipidemia, unspecified; L57.0 Actinic keratosis
CPT/HCPCS: 80053; 80061; 82607; 84443; 85025

== ENCOUNTER 2020-04-19 18:24 | Outpatient (REF) | payer MEDICARE, BC, SELFPAY ==
--- NOTE | 2020-04-19 11:00 | SKI_PTH ---
PATIENT: Nicholas Seth LOC: [facility] U#:[id number] AGE/SX: 69/M ROOM: RE04/19/[address]: PHILLY Ba : 1950 BED: DIS: 04/19/2020 SPEC #: [id number] RECD: 04/19/20 18:27 STATUS: ALVARO REHailey #: [id number] MARTÍN: 04/19/20 11:[address]: Uriel Abbasi DEPT: Surgical Specimen RECD BY: Kaya Mcgrath ENTERED: 04/19/20 18:28 SP TYPE: [facility] VILLALOB[facility] DR: An [place] Tissues: 1 - SKIN BIOPSY(SHAVE/PUNCH) Procedures: SKIN LEVEL 4 Comments: [id number]
== END 2020-04-19 18:25 | disposition home or self-care (01) ==
LOC: LBN 18:24
PROVIDERS: PCP Family Medicine; Visit Provider Physician Assistant
DX: D04.21 Carcinoma in situ of skin of right ear and external auricular canal (principal)
CPT/HCPCS: 88305

== ENCOUNTER 2020-04-28 14:12 | Outpatient (REF) | payer MEDICARE, BC, SELFPAY ==
--- NOTE | 2020-04-28 13:53 | SKI_PTH ---
PATIENT: Nicholas Seth LOC: [facility] U#:[id number] AGE/SX: 69/M ROOM: RE04/28/[address]: PHILLY Ba : 1950 BED: DIS: 04/28/2020 SPEC #: [id number] RECD: 04/29/20 12:58 STATUS: ALVARO REHailey #: [id number] MARTÍN: 04/28/20 13:[address]: Uriel Abbasi DEPT: Surgical Specimen RECD BY: Kaya Mcgrath ENTERED: 04/29/20 12:58 SP TYPE: [facility]RIST VILLALOBOS DR: An Sheffield Tissues: 1 - SKIN BIOPSY(SHAVE/PUNCH) Procedures: SKIN LEVEL 4 Comments: [id number]
== END 2020-04-28 14:13 | disposition home or self-care (01) ==
LOC: LBN 14:12
PROVIDERS: PCP Family Medicine; Referring Provider Family Medicine; Visit Provider Physician Assistant
DX: L92.8 Other granulomatous disorders of the skin and subcutaneous tissue (principal); L90.5 Scar conditions and fibrosis of skin; Z86.007 Personal history of in-situ neoplasm of skin
CPT/HCPCS: 88305

== ENCOUNTER → 2020-05-19 09:12 | Outpatient (BNVA) | payer MEDICARE, BC, SELFPAY | PROVIDERS: PCP Family Medicine; Referring Provider Family Medicine; Visit Provider Nurse Practitioner Adult Health | DX: R41.3 Other amnesia (principal); I10 Essential (primary) hypertension; F43.8 Other reactions to severe stress | CPT/HCPCS: 99204; 99214 ==

== ENCOUNTER 2020-06-02 02:39 | Outpatient (CLI) | payer MEDICARE, BC, SELFPAY ==
--- NOTE | 2020-06-02 06:45 | DI.MRI_ITS ---
EXAM: MR BRAIN WO CLINICAL HISTORY: declining memory,MEMORY DEFICIT,R41.3 TECHNIQUE: Multiplanar multisequence MRI of the brain was performed. COMPARISON: No exams were available for comparison FINDINGS: CEREBRAL PARENCHYMA: No evidence of intracranial hemorrhage, mass effect nor shift of midline structu re. No extraaxial fluid collections. Ventricles are not enlarged nor shifted. There is no significant focal signal abnormality in the cerebellar hemispheres nor within the bibiana, m idbrain, and thalami. There is no abnormal signal abnormality in the periventricular white matter. There is no significant focal signal abnormality evident on diffusion imaging to suggest acute ischem ic event. No significant signal abnormality evident in the cerebellar hemispheres nor within the bibiana, midbrain , and thalami. No significant periventricular white matter signal abnormality. There is no abnormal signal evident on diffusion imaging. PITUITARY GLAND: No mass nor parasellar abnormality. No obvious abnormality in the cavernous sinuses. FLOW VOIDS: The expected flow void are noted. No evidence of obvious aneurysm nor obvious vascular ma lformation. PARANASAL SINUSES: Some mucosal thickening is noted circumferentially in the left maxillary sinus and sphenoid sinuses. No fluid levels. ORBITS: No obvious findings. IMPRESSION: No significant intracranial findings on this noninfused MRI scan of the brain. Mild paranasal sinus mucosal disease. DATA REPOSITORY:
== END 2020-06-02 02:59 ==
PROVIDERS: PCP Family Medicine; Visit Provider Nurse Practitioner Adult Health
DX: R41.3 Other amnesia (principal)
CPT/HCPCS: 70551

== ENCOUNTER → 2020-06-23 09:44 | Outpatient (BNVA) | payer MEDICARE, BC, SELFPAY | PROVIDERS: PCP Family Medicine; Referring Provider Family Medicine; Visit Provider Nurse Practitioner Adult Health | DX: G31.84 Mild cognitive impairment of uncertain or unknown etiology (principal) | CPT/HCPCS: 99213; 99215; G2212 ==

== ENCOUNTER 2020-07-14 09:24 | Outpatient (REF) | payer MEDICARE, BC, SELFPAY ==
[2020-07-14 13:59] LABS: Calculated LDL 119 mg/dL (<100); Cholesterol 203 mg/dL (<200); HDL Cholesterol 55 mg/dL (40-60); Triglyceride 145 mg/dL (<150)
== END 2020-07-14 09:25 | disposition home or self-care (01) ==
LOC: NCHCN 09:24
PROVIDERS: PCP Family Medicine; Visit Provider Family Medicine
DX: E78.5 Hyperlipidemia, unspecified (principal)
CPT/HCPCS: 80061

== ENCOUNTER → 2020-12-20 14:30 | Outpatient (BNVA) | payer MEDICARE, BC, SELFPAY | PROVIDERS: PCP Family Medicine; Referring Provider Family Medicine; Visit Provider Student in an Organized Health Care Education/Training Program | DX: M17.11 Unilateral primary osteoarthritis, right knee (principal) | CPT/HCPCS: 99213 ==

== ENCOUNTER → 2021-04-28 08:20 | Outpatient (BNVA) | payer MEDICARE, BC, SELFPAY | PROVIDERS: PCP Family Medicine; Referring Provider Family Medicine; Visit Provider Student in an Organized Health Care Education/Training Program | DX: M17.11 Unilateral primary osteoarthritis, right knee (principal) | CPT/HCPCS: 99214 ==

== ENCOUNTER → 2021-07-14 13:00 | Outpatient (BNVA) | payer MEDICARE, BC, SELFPAY | PROVIDERS: PCP Family Medicine; Referring Provider Family Medicine; Visit Provider Physician Assistant | DX: M17.11 Unilateral primary osteoarthritis, right knee (principal) ==

== ENCOUNTER 2021-07-20 13:20 | Outpatient (REF) | payer MEDICARE, BC, SELFPAY ==
[2021-07-20 15:42] LABS: Anion Gap 7.8 mmol/L (3-11); BUN 22 mg/dL (7-18); CO2 27.2 mmol/L (21.0-32.0); Calcium 8.6 mg/dL (8.5-10.1); Chloride 106 mmol/L (98-107); Glucose 90 mg/dL (74-106); Potassium 4.6 mmol/L (3.5-5.1); Sodium 141 mmol/L (136-145)
== END 2021-07-20 13:21 | disposition home or self-care (01) ==
LOC: NCHCN 13:20
PROVIDERS: PCP Family Medicine; Visit Provider Family Medicine
DX: I10 Essential (primary) hypertension (principal); R41.3 Other amnesia
CPT/HCPCS: 80048

== ENCOUNTER 2021-07-25 03:11 | Outpatient (CLI) | payer MEDICARE, BC, SELFPAY ==
[2021-07-25 12:57] LABS: Source Nasal/Nares
[2021-07-25 17:42] LABS: COVID-19 PCR Negative (Negative)
== END 2021-07-25 03:12 | disposition home or self-care (01) ==
LOC: LBO 03:12
PROVIDERS: PCP Family Medicine; Visit Provider Student in an Organized Health Care Education/Training Program
DX: Z20.822 Contact with and (suspected) exposure to COVID-19 (principal); Z01.818 Encounter for other preprocedural examination
CPT/HCPCS: 36415; 80048; 85027; 87635; U0005

== ENCOUNTER 2021-07-25 03:18 | Outpatient (CLI) | payer MEDICARE, BC, SELFPAY ==
[2021-07-25 10:01] LABS: HGB 16.1 g/dL (13.5-17.5); MCH 32.3 pg (27.0-33.0); MCV 92 fL (80-95); MPV 9.4 fL (8.0-11.0); Platelet Count 205 10^3/uL (130-400); RBC 4.99 10^6/uL (4.36-5.78); RDW-SD 40.8 fL
[2021-07-25 11:05] LABS: Anion Gap 9.5 mmol/L (3-11); BUN 24 mg/dL (7-18); CO2 29.5 mmol/L (21.0-32.0); CREATININE 1.2 mg/dL (0.70-1.30); Calcium 8.9 mg/dL (8.5-10.1); Chloride 102 mmol/L (98-107); Estimated GFR 59.68 (mL/min/1.73m2); Glucose 130 mg/dL (74-106); Potassium 3.8 mmol/L (3.5-5.1); Sodium 141 mmol/L (136-145)
== END 2021-07-25 03:19 | disposition home or self-care (01) ==
LOC: LBO 03:18
PROVIDERS: PCP Family Medicine; Visit Provider Student in an Organized Health Care Education/Training Program
DX: M25.561 Pain in right knee (principal); M17.11 Unilateral primary osteoarthritis, right knee; Z01.818 Encounter for other preprocedural examination; Z01.812 Encounter for preprocedural laboratory examination
CPT/HCPCS: 36415; 80048; 85027

== ENCOUNTER 2021-07-26 07:30 | Day surgery (SDC) | payer MEDICARE, BC, SELFPAY ==
[2021-07-26] VITALS (9 sets, daily range): BP systolic 124–146; BP diastolic 65–87; PULSE 47–74; RESP 13–16; TEMP 35.6–36.6; O2SAT 95–99; BMI 30.9
--- NOTE | 2021-07-26 06:27 | PDOC.DSDIS_ITS ---
Discharge Plan Disposition Patient Disposition: HOME Condition: Stable Discharge Details Reason For Visit: Right TKA Attending Provider: Dillon Jolly Primary Care Provider: Giorgi Green Home Meds and New Rx's Prescriptions: New aspirin 81 mg tablet,delayed release (DR/EC) 81 mg PO BID Qty: 60 0RF pantoprazole [Protonix] 40 mg tablet,delayed release (DR/EC) 40 mg PO DAILY Qty: 30 0RF gabapentin 300 mg capsule 300 mg PO QHS Qty: 14 0RF oxycodone 5 mg tablet 5 mg PO Q4H PRNQty: 18 0RF Continued atorvastatin 40 mg tablet 40 mg PO QHS mecobalamin (vitamin B12) 1,000 mcg tablet,chewable 1,000 mcg PO DAILY cholecalciferol (vitamin D3) 50 mcg (2,000 unit) capsule 150 mcg PO DAILY meloxicam 15 mg tablet 15 mg PO DAILY Qty: 30 2RF acetaminophen 500 mg tablet 1,000 mg PO Q8H PRN (Reason: pain) Qty: 90 3RF fluorouracil 5 % cream 1 applic topical BID Rx Instructions: apply sufficient amount to cover all lesions sertraline 100 mg tablet 150 mg PO DAILY (DME) oxygen-air delivery systems Device See Rx Instructions .ROUTE .MEDSUPPLY Qty: 1 Rx Instructions: As directed Denavir 1.5 GM cream 1 ea Topical PRN PRN sertraline 50 MG tablet 50 mg PO DAILY hydrochlorothiazide 25 mg tablet 12.5 mg PO DAILY Discharge Instructions Additional Instructions: Total Knee Discharge Instructions Activity: The most important activity is to walk. You should try to take short walks a few times a day. It is important that when resting you work on keeping the knee straight. Avoid putting a pillow behind the knee as this will encourage flexion. Work on range of motion exercises as provided by Physical Therapy. [If you have the [employer] bike coming, this will be your primary tool for exercise after the knee replacement. You should use it and follow the directions for the knee. Utilize the other exercises sparingly based on your symptoms.] - Start outpatient physical therapy within 2 weeks. - You should wear the BLAYNE hose on both legs for 2 weeks. You may remove these at night. You may also use any compression sock in place of the BLAYNE hose. - Utilize [employer] to review exercises, see videos on exercises and obtain basic information pertaining to your surgery and your recovery. Dressing: Remove the Phong wrap by 2 days after your surgery and put on the BLAYNE stocking given to you from the hospital. Keep the surgical dressing (underneath the PHONG wrap) in place for at least one week. After the first week it may be removed and replaced with light gauze and tape or nothing. The wound and dressing may get wet after 3 days but avoid soaking the dressing or otherwise it will need to be changed. Many people prefer covering the dressing with cling wrap (saran wrap) to minimize it from getting soaked. If it gets wet, just pat dry. If it starts to peel off then it will need to be changed. Medications: - You should take Tylenol and your previously prescribed anti-inflammatory Meloxicam as your primary pain control medications. If needed please call the office for another alternative (Celebrex/Advil/Ibuprofen or Naproxen/Aleve) - You have been prescribed a stronger pain medication Oxycodone for breakthrough pain, take as needed as prescribed. - You have also been prescribed a stomach acid reduction agent Pantoprozole to help reduce stomach acid and reflux. - You have been prescribed Gabapentin to take at night for restlessness and nerve pain. - You will be taking Aspirin 81mg twice a day for DVT prevention unless instructed otherwise. - If you have constipation you should take Colace or Miralax (both [id number]). It takes most people 3-4 days to have a bowel movement. Follow-up: 2 weeks If you have any acute concerns or questions, please do not hesitate to contact the office at [phone]. You may contact Dr. Jolly with any questions after hours through the hospital at [phone] or on his cell phone at [phone]. Referrals: Dillon Jolly MD [ [facility] STAFF PHYSICIAN] - Equipment/Supplies: Walker Activity:: Activity as Tolerated Remove Dressings/Wound Care:: Do Not Remove Shower/Bathe:: 72 hours Diet:: As Tolerated Discharge Orders Discharge Orders: Discharge Order (Routine); Ordered 07/26/21 Ordered By: Kelley Mortensen DS: Diagnosis Discharge Diagnosis (1) Primary osteoarthritis of right knee: Status: Acute
--- NOTE | 2021-07-26 07:55 | W.ANESPRE ---
General Info Date of Service Date Performed: 07/26/21 Height: 6 ft Weight: 103.419 kg Body Mass Index (BMI): 30.9 Surgical Procedure: Operation Date: 07/26/21 09:40 Proposed Procedure Side Surgeon p Knee Total Arthroplasty Right Dillon Jolly MD Meds Allergies and Home Medications Allergies Allergy/AdvReac Type Severity Reaction Status Date / Time No Known Allergies Allergy Unverified 07/26/21 08:12 Home Medication Medication Instructions Recorded penciclovir 1 % topical cream 1 ea topical PRN PRN 04/24/14 (Denavir) sertraline 50 mg tablet 50 mg PO DAILY 04/24/14 acetaminophen 500 mg tablet 1,000 mg PO Q8H PRN pain #90 tabs 12/08/19 fluorouracil 5 % topical cream 1 applic topical BID 04/19/20 oxygen-air delivery systems ##1 04/19/20 sertraline 100 mg tablet 150 mg PO DAILY 04/19/20 atorvastatin 40 mg tablet 40 mg PO QHS 06/23/20 cholecalciferol (vitamin D3) 50 150 mcg PO DAILY 06/23/20 mcg (2,000 unit) capsule mecobalamin (vitamin B12) 1,000 1,000 mcg PO DAILY 06/23/20 mcg chewable tablet meloxicam 15 mg tablet 15 mg PO DAILY #30 tabs 04/28/21 hydrochlorothiazide 25 mg tablet 12.5 mg PO DAILY 07/14/21 aspirin 81 mg tablet,delayed 81 mg PO BID #60 tabs 07/26/21 release gabapentin 300 mg capsule 300 mg PO QHS #14 caps 07/26/21 oxycodone 5 mg tablet 5 mg PO Q4H PRN #18 tabs 07/26/21 pantoprazole 40 mg tablet,delayed 40 mg PO DAILY #30 tabs 07/26/21 release (Protonix) Current Visit Medications: Current Medications Generic Name Dose Route Start Last Admin Trade Name Freq PRN Reason Stop Dose Admin Acetaminophen 1,000 mg 07/26/21 06:00 Acetaminophen 500 Mg Tab PO 07/26/21 16:00 PREOP VERNA Acetaminophen 1,000 mg 07/26/21 08:30 Acetaminophen 500 Mg Tab PO TID VERNA Aspirin 81 mg 07/26/21 08:30 Aspirin E.C. 81 Mg Tabec PO BID VERNA Celecoxib 400 mg 07/26/21 06:00 Celecoxib 200 Mg Cap PO 07/26/21 16:00 PREOP VERNA Celecoxib 200 mg 07/26/21 08:30 Celecoxib 200 Mg Cap PO BID VERNA Docusate Sodium 100 mg 07/26/21 06:26 Docusate Sodium 100 Mg Cap PO BID PRN PRN Constipation Gabapentin 300 mg 07/26/21 06:00 Gabapentin 300 Mg Cap PO 07/26/21 16:00 PREOP VERNA Gabapentin 300 mg 07/26/21 22:00 Gabapentin 300 Mg Cap PO HS VERNA Hydromorphone HCl 0.5 mg 07/26/21 06:26 Hydromorphone 2 Mg/Ml Vial IVP Q2H PRN PRN Tranexamic Acid 1,000 mg/ 60 mls @ 360 mls/hr 07/26/21 06:00 Sodium Chloride IVPB 07/26/21 16:00 PREOP VERNA Tranexamic Acid 1,000 mg/ 60 mls @ 360 mls/hr 07/26/21 06:00 Sodium Chloride IVPB 07/26/21 16:00 DIRECTED VERNA Ringer's Solution 1,000 mls @ 80 mls/hr 07/26/21 06:00 IV 08/24/21 23:59 INFUSION VERNA Cefazolin Sodium/Dextrose 2 gm in 50 mls @ 100 mls/hr 07/26/21 06:00 Ancef Duplex IVPB 08/24/21 23:59 PREOP VERNA Cefazolin Sodium/Dextrose 1 gm in 50 mls @ 100 mls/hr 07/26/21 15:00 Ancef Duplex IVPB 07/27/21 07:29 Q8H VERNA IV Miscellaneous Supplies 1 each 07/26/21 06:00 Iv Access IV 08/24/21 23:59 DIRECTED VERNA Oxycodone HCl 0 mg 07/26/21 06:26 Oxycodone 5 Mg Tab PO Q3H PRN PRN Pain Pantoprazole Sodium 40 mg 07/26/21 07:30 Pantoprazole 40 Mg Tabcr PO DAILY@0730 VERNA Sodium Chloride 0 ml 07/26/21 06:00 Normal Saline Flush 10 Ml Syr IV 08/24/21 23:59 PRN PRN Sodium Chloride 0 ml 07/26/21 06:00 Normal Saline 10 Ml Vial IJ 08/24/21 23:59 DIRECTED PRN Sterile Water 0 ml 07/26/21 06:00 Water,Injection,Sterile 10 Ml Vial IJ 08/24/21 23:59 DIRECTED PRN PFSH Active Problems Active Problems: Problem Status Onset Code Mild cognitive impairment G31.84 Memory deficit R41.3 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 Tinnitus 07/01/13 H93.19 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 Sensorineural hearing loss, bilateral 07/01/13 H90.3 Primary osteoarthritis of right knee 09/26/17 M17.11 Neoplasm of skin 06/30/13 D49.2 Impacted cerumen of both ears H61.23 Medical History Medical History Actinic keratoses Anxiety with depression Carpal tunnel syndrome Essential hypertension Hearing loss History of degenerative joint disease History of onychomycosis Hx of colonic polyps Hx of psoriasis Hx of sleep apnea uses CPAP Hyperlipidemia Memory loss Obstructive sleep apnea Restless leg syndrome Rosacea Surgical History Surgical History H/O vasectomy History of hernia repair Hx of colonoscopy (~04/2019) [place] - Tubular adenoma x4. Status post total left knee replacement Tobacco Smoking/Tobacco Use Status: Former Tobacco Use Alcohol Alcohol Intake: current Alcohol intake frequency: a few times a week Alcohol type: hard liquor Substance Use Substance use: Never Substance use type: does not use Vital Signs and Lab Results Lab Results Blood Type / Crossmatch: No Data to Display Complete Blood Count: White Blood Count 9.20 10^3/uL (4.4-10.8) 07/25/21 09:55 Red Blood Count 4.99 10^6/uL (4.36-5.78) 07/25/21 09:55 Hemoglobin 16.1 g/dL (13.5-17.5) 07/25/21 09:55 Hematocrit 46.0 % (40.0-50.0) 07/25/21 09:55 Platelet Count 205 10^3/uL (130-400) 07/25/21 09:55 Complete Metabolic Panel: Sodium Level 141 mmol/L (136-145) 07/25/21 09:55 Potassium Level 3.8 mmol/L (3.5-5.1) 07/25/21 09:55 Chloride Level 102 mmol/L (98-107) 07/25/21 09:55 Carbon Dioxide Level 29.5 mmol/L (21.0-32.0) 07/25/21 09:55 Blood Urea Nitrogen 24 mg/dL (7-18) H 07/25/21 09:55 Creatinine 1.2 mg/dL (0.70-1.30) 07/25/21 09:55 Estimated GFR/1.73 m2 59.68 (mL/min/1.73m2) 07/25/21 09:55 Calcium Level 8.9 mg/dL (8.5-10.1) 07/25/21 09:55 Glucose Level 130 mg/dL (74-106) H 07/25/21 09:55 Liver Function Panel: No Data to Display Coagulation Panel: No Data to Display Cardiac Panel: No Data to Display Arterial Blood Gas: No Data to Display Venous Blood Gas: No Data to Display Pancreas Panel: No Data to Display Thyroid Panel: No Data to Display Infectious Disease: Coronavirus (COVID-19)(PCR) Negative (Negative) 07/25/21 10:11 Coronavirus 2019 Source Nasal/Nares 07/25/21 10:11 Blood Cultures: No Data to Display Toxicology Panel: No Data to Display Anesthesia Assessment and Plan Anesthesia History Personal History: No History of Anesthesia Complications Family History: No Family History of Anesthesia Complications Exercise Tolerance Exercise Tolerance: Metabolic Equivalents>4 Pertinent Negatives Pertinent Negatives: No Symptoms of GERD, No Major Cardiovascular Symptoms or Complaints and No Major Pulmonary Symptoms or Complaints (BRIAN wears a CPAP machine at night) Cardiac & Pulmonary Exam Cardiac Exam: Normal S1/S2 Heart Sounds Pulmonary Exam: Clear Bilateral Breath Sounds Implantable Cardiac Device Does patient have a Pacemaker or an ICD?: No Airway Exam Known Difficult Airway: No Mallampati Class: 2 Mouth Opening: Normal (> 3cm) Thyromental Distance: Greater than 3 cm Neck Range of Motion: Full ROM Neck Circumference: Normal Teeth Condition: Normal Dentition and Loose or Chipped (Tooth 13 chipped) ASA Classification ASA Score: ASA 2 Emergency Case?: No NPO Status NPO Status: NPO Clears >2 hours, Solids >8 hours Anesthesia Plan Resuscitation Status: Full Code Anesthesia Technique: General Anesthesia Airway Planned: Natural Airway Monitors Used: Standard Monitors
[2021-07-26] MEDS: Acetaminophen 500 MG TAB 1000 MG PO (08:06)
[2021-07-26] MEDS: Celecoxib 200 MG CAP 400 MG PO (08:06)
[2021-07-26] MEDS: Gabapentin 300 MG CAP PO (08:07)
[2021-07-26] MEDS: Lactated Ringers 1,000 ML 80 ML IV (08:10)
--- NOTE | 2021-07-26 09:00 | RT.EKG_ITS ---
APPROVED REPORT Exam: Resting ECG Reason for Exam: New BBB, preop Patient Location: O HR:71 bpm ECG Measurements Heart Rate 71 AXIS FL 168 P 78 QRSd 156 QRS -5 QT 435 T 33 QTc 472 Conclusion Sinus rhythm...normal P axis, V-rate 60- 99 Multiple ventricular premature complexes...V complexes w/ short R-R intervls Right bundle branch block...QRSd>120, terminal axis(90,270)
[2021-07-26] MEDS: ceFAZolin 2 GM/50 ML BAG IVPB (09:31)
--- NOTE | 2021-07-26 09:45 | W.ANESNERVE ---
Nerve Block Single Injection Procedure Date and Time Date Performed: 07/26/21 Procedure Start: 08:40 Location Where Procedure Performed Procedure Location: Day Surgery Unit Reason Performed: Postoperative Analgesia Requesting Provider: Dillon Jolly Timeout Performed Timeout Performed: Yes Monitoring Used ECG, Blood Pressure and SpO2 Sterility Sterility: Hand Hygiene, Surgical Cap, Surgical Mask, Sterile Gloves, Sterile Drape/Sheet, Eye Protection and Chlorhexidine Sedation Given During Procedure Sedation Given (Indicate Dose Given): No Sedation given Patient Mental Status Patient Mental Status: Awake Nerve Block 1st Nerve Block: Laterality: Right Block Type: Adductor Canal Needle / Catheter Used: 100mm SonoPlex II Local Anesthetic Bolus (Indicate Dose Given): Lidocaine used for local infiltration of skin, Injected in 3-5ml increments after negative blood aspiration and Bupivacaine 0.25% Dose:: 15 mL Additives (Indicate Dose Given): None Ultrasound: Sterile probe cover and gel used Ultrasound Image Saved?: Yes Nerve Stimulator: Not Used Paresthesia: None Procedure Tolerated: No Complications and Patient tolerated well Procedure Outcome: Successful Performed By: Renetta Mason Supervised By: Mariella Khan
--- NOTE | 2021-07-26 11:17 | W.ANESPOSTOP ---
Postoperative Evaluation Date, Time and Location Date Performed: 07/26/21 Time Performed: 11:18 Patient Location: PACU Vital Signs Most Recent Imported Vital Signs: Most Recent Vital Signs Temp Pulse Resp BP Pulse Ox 36.6 C 56 L 16 146/84 H 96 07/26/21 08:24 07/26/21 08:24 07/26/21 08:24 07/26/21 08:24 07/26/21 08:24 Pain Score Most Recent Pain Score: Most Recent Pain Score Pain Level 0 07/26/21 08:24 Assessment Mental Status: Awake (Alert & Oriented to Patient Baseline) Airway and Respiratory Function: Patent airway with normal (patient baseline) respiratory exam Cardiovascular Function: Hemodynamically Stable Hydration Status: Adequately Hydrated Nausea & Vomiting: No Nausea or Vomiting Pain: Pt. Denies Any Pain Peripheral Nerve Block: Regional nerve block not resolved at time of post operative discharge
--- NOTE | 2021-07-26 12:04 | ROE_ITS ---
Date of service: 07/26/21 Time of Service: 11:00 Operative Note Operative Note DATE OF PROCEDURE: 07/26/21 PRE-OP DIAGNOSIS: Knee Osteoarthritis POST-OP DIAGNOSIS: same Right Bundle Branch Block - Noted on initial leads and confirmed with 12 lead EKG PROCEDURE: Right Total Knee Replacement SURGEON: Dillon Jolly CLINICAL TRIALS NURSE: Ivett Charles ANESTHESIA TYPE: Spinal Refer to Anesthesia Record ESTIMATED BLOOD LOSS: 150 PATHOLOGY: none sent TOURNIQUET TIME: 0 COMPLICATIONS: None Patient was transported to: PACU Patient's condition: stable Implants: 1. Depuy Attune Cementless Cruciate Retaining Femoral Component, Size 6 2. Depuy Attune Cementless Rotating Platform Tibial Component, Size 7 3. Depuy Attune 6x12 CR/RP Poly 4. Depuy Attune Patellar Component, Size 38 Indications: I have seen Nicholas in clinic for symptoms of knee arthritis, confirmed with radiographic findings. He has exhausted nonoperative methods and was having significant limitations in daily function and desired better function and less pain. I discussed the technical details of a knee replacement. I explained the risks of the procedure to include, but not limited to, bleeding, infection, pain, stiffness, fracture, damage to nerves and vessels, damage to muscles and tendons, loosening, need for repeat procedure, blood clot and cardiopulmonary demise. Despite these risks, Nicholas elected to proceed. Findings: Just prior to spinal administration there was a noted RBB on the V2 lead. This was documented elsewhere in the chart. Nicholas had no chest pain or shortness of breath. He is quite active and not limited by chest pain or shortness of breath. 12 lead EKG was performed and showed RBB. Given he is asymptomatic and only a RBB, surgery proceeded without issue. There was significant signs of arthritis throughout the knee with deficiency of the posterior femur and medial tibia. Procedure Description: Nicholas was greeted in the preoperative holding area where the correct side was identified and marked. The consent was reviewed with the patient and signed. The history and physical was updated. All questions were answered. Preo perative medications were administered: Acetaminophen 1000mg, Celebrex 400mg, and Gabapentin 300mg. An adductor canal block was then administered by the anesthesia team in the PACU. He was taken back to the operating room. Prior to spinal administration, a RBB was acknowleged on the lead. This was not noted in his chart previously and thus a 12 lead EKG was performed. This showed the same. He was asymptomatic and quick discussion with desktop publishing associate Dr. Del Rosario confirmed our intentions to proceed. Then, a spinal anesthestic was then administered. The patient was placed into the supine position on the operating room table. A nonsterile tourniquet was placed high onto the leg but only used for cementing. Posts were placed for positioning during the procedure. All bony prominences were well padded. Prophylactic antibiotics in the form of Cefazolin were administered. 1g of Tranxemic Acid was given intravenously within 30 minutes of incision. The right leg was then prepped with Chloraprep and draped in a standard fashion with impervious stockinette. A second prep with Chloraprep was performed prior to application of Iodine impregnated skin protection. A timeout to confirm correct identity, side and site, procedure, allergies, anesthesia, and medical concerns was performed. With the knee in some flexion, a midline incision was made overlying the knee. Full thickness skin flaps were raised once the extensor mechanism was encountered. These were raised medially and laterally. Any bleeding was controlled with electrocautery. Once the extensor mechanism was fully exposed, a medial parapatellar arthrotomy was performed in a flexed position. All bleeding from the arthrotomy and the geniculate arteries was coagulated. A medial subperiosteal peel was performed with electrocautery to the midcoronal plane. Due to the significant varus deformity the entire medial tibial plateau was exposed. The fat pad was removed while keeping the patellar tendon protected. The anterior distal femur synovium was removed for later visualization. The ACL and PCL were resected and the anterior horn of the lateral meniscus was transected. The knee was then flexed with the patella everted. Large osteophytes from the tibia were removed. Large osteophytes from the femur were removed. Using a step drill, and based on preoperative templating, the femoral canal was entered. This was done with a step drill without any difficulty. The intramedullary distal femoral cut guide was inserted, set to a 5 degree valgus cut and 9mm cut thickness. The distal femoral cut guide was then held in position and pinned. With the soft tissues protected, the distal cut was performed. This was passed over a few times to ensure a planar cut. I then turned attention to the tibia. The extramedullary guide was placed onto the leg. The distal aspect was slid medial to adjust for position of center of ankle and stay in line with shaft of the tibia. Approximately 3-5 degrees of posterior slope was kept in the proximal cutting guide. The center of the guide was aligned with the PCL. The stylus was used to assess cut thickness. The medial side, most involved side, was set for a 3mm cut. There was noted deficiency of the medial tibia. This was then held in position and pinned into place with 2 additional pins and a cross pin for stability. The medial and lateral collateral ligaments were protected and the cut was performed. With this completed, it was assessed and noted to be of appropriate dimensions. The guide was removed. A spacer block was inserted and the knee was brought into extension. The 10mm spacer block provided full extension, without hyperextension and with stability of both the medial and lateral collateral ligaments was assessed. The pins from the femur and the tibia were then removed. The distal femur was then sized. The anterior stylus was placed onto the lateral ridge of the anterior femur. This indicated a size 6 femur. The e xternal rotation of the guide was adjusted to 5 degrees to match the epicondylar axis, perpendicular to [place]?s line. The 4-in-1 cutting guide was the placed. The posterior medial femur cut was evaluated and appeared of good thickness. The spacer block was inserted underneath the cutting guide and stability was confirmed in 90 degrees of flexion. An anca wing was used to confirm appropriate position of the anterior cut to avoid notching. This cutting guide was ensured to be flush on the cut surface and then pinned into place with headed pins. While protecting the soft tissues, quad tendon, and collateral ligaments, the anterior and posterior cuts were performed with a saw. The central two pins were removed and the posterior and anterior chamfers were cut next. The notch-cutting guide was placed. This was pinned to lateralize the femoral component as much as possible while keeping it flush on the cut surface. This was then pinned into position. A reciprocating saw was used to make the notch cut. A rasp smoothed the cut surfaces. The medial and lateral menisci were removed. A trial femoral component was then inserted, impacted down to the cut surfaces, and the lug holes were drilled. A provisional trial tibial component was placed and the knee was brought through range of motion. There was noted to be excellent extension and flexion. There was no significant instability. The polyethylene was trialed until there was good flexion and extension with excellent stability to the medial and lateral collaterals. The patella was tracking without thumbs. A size 12mm polyethylene component provided the best range of motion and stability with less than 2mm gapping with medial and lateral stress and full extension without significant hyperextension. The tibial cut surface was fully exposed. The tibia was then sized as a 7. The tibia had been previously marked during trialing to correspond to the center of the tibial component to help with rotation. The trial was aligned to this asia, approximately rotated to the medial 1/3rd of the tibial tubercle. The trial was pinned into place. The tibia was prepared with a reamer and a keel punch and lug holes. The knee was then brought into extension and the patella was measured as 25mm. Using the patellar clamp and cut guide, this was resected to a flat surface with at least 13mm of thickness remaining. The size 38 patella fit the best. This was oriented and then clamped into position. The lugs were drilled. The trial components were removed. The final components were opened on the back table. The periosteal and capsular tissues, especially posteriorly, around the knee were then systematically injected with a periarticular cocktail consisting of 246mg of Ropivacaine, 0.5mg of Epinephrine, 0.08mg of Clonidine, and 30mg of Ketorolac, diluted to 100cc. On the back table, with the implants opened, the cement was mixed. One batch of high viscosity cement was prepared with vacuum assistance. After the cement was ready a small amount was placed on the cut surface of the patella and the patellar button was clamped into position and held. While the cement was hardening, the cementless knee components were placed. Starting with the tibial component, the tibia was subluxed anteriorly and the lug holes of the component were lined up. The tibia was then impacted with an impactor and mallet until the tibial component was in contact with the tibia. The final polyethylene component was inserted. Then, the femoral component was inserted. The lug holes were aligned and the component was impacted into position. The knee was irrigated with Surgiphor Betadine solution. This was allowed to sit in the knee for 3 minutes and then it was irrigated out with saline. After the cement had finally cured, approximately 15min, the clamp was removed from the patella and the knee was taken through range of motion. The patella was tracking with a no-thumbs technique. The capsule was then reapproximated with a No. 1 Vicryl at multiple locations. The capsule was finally closed with a No. 2 Stratafix, barbed suture. The second dosing of 1g TXA was started. Deep tissues were then reapproximated with 0 Vicryl and 2-0 Vicryl. The skin was closed with a running 3-0 Monocryl in a subcuticular fashion. This was reinforced with skin glue. A Mepilex silver dressing was applied along with a [id number] DAVIS wrap. A CryoCuff was applied. Nicholas was transferred to the hospital bed without difficulty an suffering no apparent complication. He has a good prognosis. Physical therapy will start today and without restrictions, weight-bearing as tolerated. Aspirin 81mg BID will be used for DVT prophylaxis.
[2021-07-26] MEDS: oxyCODONE 5 MG TAB PO (12:36)
--- NOTE | 2021-07-26 13:03 | IN_ITS ---
Date of service: 07/26/21 Time of Service: 13:03 PT Notes Visit Reasons: Right TKA Physical Therapy Inpatient Initial Evaluation Date: 07/26/2021 Referring Doctor: PHILLY Arroyo PT Orders: PT CONSULT: Status post Ortho surgery Precautions: Fall. Standard. WBAT on right LE with AD. Patient Profile/Admitting Diagnosis: Nicholas is a 71-year-old male with primary osteoarthritis of the right knee and is status post right total knee arthroplasty on postoperative day 0. PMHX: Medical History?(Updated 07/14/21 @ 13:02 by Ifeoma Long) Actinic keratoses Anxiety with depression Carpal tunnel syndrome Essential hypertension Hearing loss History of degenerative joint disease History of onychomycosis Hx of colonic polyps Hx of psoriasis Hx of sleep apnea uses CPAPHyperlipidemia Memory loss Obstructive sleep apnea Restless leg syndrome Rosacea Surgical History?(Updated 07/14/21 @ 13:15 by Ifeoma Long) H/O vasectomy History of hernia repair Hx of colonoscopy (~04/2019) [place] - Tubular adenoma x4.Status post total left knee replacement Social History/Home Situation: Lives with in a private home with 2 steps to enter with no rails, he has a door frame that he can hold onto to get up. Independent in all aspects of ADLs without an assistive device prior to surgery. Equipment Owned/DME: [employer] Subjective: Reports of mild lightheadedness that did not significantly limit mobility assessment. Complains of 1-2/10 pain in the right knee. Denies headache and chest pain throughout session. Objective: General Observation: Supine in bed. IV in R UE. DAVIS wraps to R LE. TEDS in L leg. Mental Status: Alert and oriented as to person, place, time, and purpose. Able to pay attention, focus, and respond appropriately. Pain: 1-2/10 in right knee Vital Signs: Remained stable even with positional change and during mobility assessment ROM: Right Lower Extremity: Hip flexion WFL. Hip abduction WFL. Knee flexion 0 to 95 degrees. Knee extension 95 to 0 degrees. dorsiflexion WFL. Ankle maximus ntarflexion WFL. Left Lower Extremity: Hip flexion WFL. Hip abduction WFL. Knee flexion WFL. Ankle dorsiflexion WFL. Ankle plantarflexion WFL. Strength: Right Lower Extremity: Hip flexors 5/5. Hip abductors 5/5. Knee flexors 3-/5. Knee extensors 3-/5. Ankle dorsiflexors 5/5. Ankle plantarflexors 5/5. Left Lower Extremity: Hip flexors 5/5. Hip abductors 5/5. Knee flexors 5/5. Knee extensors 5/5. Ankle dorsiflexors 5/5. Ankle plantarflexors 5/5. Sensation: Intact as to pain and light pressure in bilateral lower extremities. Bed Mobility/Transfers: Supine to sit supervision Sit to stand contact-guard assist Stand to sit standby assist Bed to reclining chair standby assist Gait: Instructed patient with level surface ambulation of 150 feet requiring standby assist. Step through gait pattern. Reported mild lightheadedness that did not limit ambulation distance. No loss of balance. No shortness of breath. No report of increased pain. Stairs: Up and down 6 x 4-inch steps while holding onto 1 rail with step-to gait pattern, minimal verbal cues given for safety. Balance: Static Sitting: Normal Dynamic Sitting: Normal Static Standing: Fair Dynamic Standing: Fair Special Tests: Mobility Limitations Standardized Measure [facility] AM-PAC 6 clicks Basic Mobility Inpatient Short Form: Raw Score: 21 CMS Score: 29% deficit Informed Consent/Education: Patient was instructed in purpose of PT consult and plan of care. Agreeable to proceed with established PT POC to achieve personal goals. Assessment: Peter requires the use of a FWW for all obility Adl performance to maximize independence and reduce fall risk. Patient presents with clinical signs and symptoms consistent with current/admitting diagnoses that have resulted to mobility limitations, gait instability, generalized weakness, and overall ADL decline as demonstrated by the following impairment level findings: 1. Decreased strength to R knee major muscle groups 2. Impaired sitting/standing balance 3. Impaired activity tolerance 4. Limitation of joint range of motion in R knee 5. Shortness of breath Impairments are contributing to the following functional limitations: 1. Decline in bed mobility skills 2. Decline in transfer skills 3. Difficulty with ambulation without assistive device and physical assistance 4. Increased completion time for mobility ADL performance 5. Increased risk for falls 6. Difficulty with managing steps alone safely Patient is assessed as a 84299 moderate complexity based on the following: History: 71-year-old male with past medical history as indicated above Examination: Demonstrable impairment in strength, balance, and mobility level with underlying impairments and functional limitations as exhibited above as well as deficit score of 29% utilizing the [facility] Mobility Inpatient Short Form Presentation: Evolving Decision Makin moderate complexity Goals: N/A. PT evaluation and 1-2 treatment sessions only for functional mobility training using recommended AD and for HEP instruction. Plan of Care/Treatment Plan: N/A. PT evaluation and 1-2 treatment session only for functional mobility training using recommended AD and for HEP instruction. DISCHARGE RECOMMENDATIONS: [] Home with no services [] [] Home with services [specify] [X] Home with outpatient PT. Home when medically cleared by orthopedic surgeon. Will benefit from outpatient PT services to facilitate return to independent community ambulation and ADL performance without an assistive device. [] SNF for continued rehabilitation [] [] [facility] [] [] SNF versus LTC based on ability to participate and progress [] TREATMENT CODE/TIME: 28701 x 30', 01165 x 24' beginning at 13:03 PM. Thank you for the opportunity to participate in the care of this patient. Janie Ny PT, DPT, CLT [facility] [place], [place]
== END 2021-07-26 14:58 | disposition home or self-care (01) ==
PROVIDERS: PCP Family Medicine; Visit Provider Student in an Organized Health Care Education/Training Program
PROC: (CPT 27447; principal; 2021-07-26 09:30)
DX: M17.11 Unilateral primary osteoarthritis, right knee (principal); G47.33 Obstructive sleep apnea (adult) (pediatric); I10 Essential (primary) hypertension
CPT/HCPCS: 27447; C1776; 97162; 97530; J0690; J2405

== ENCOUNTER 2021-08-11 11:16 | Outpatient (CLI) | payer MEDICARE, BC, SELFPAY ==
--- NOTE | 2021-08-11 11:00 | DI.RAD_ITS ---
Exam(s) XR STANDING ALIGNMENT EXAM: XR STANDING ALIGNMENT CLINICAL HISTORY: 1ST POST OP R TKA. TECHNIQUE: 2D digital imaging was performed. COMPARISON: CR XR STANDING ALIGNMENT from 09/11/2019 FINDINGS: Compared to 09/11/2019 there has been interval placement right knee prosthesis. There are now bilate ral prostheses both knee prostheses appear to be satisfactory position. No fracture or loosening francis dent. There is mild narrowing medial aspect right hip joint. Left hip appears unremarkable. Ankles unremarkable. Bone density is normal. No significant osseous lesions. IMPRESSION: DATA REPOSITORY: RADIATION DOSE DELIVERED:
--- NOTE | 2021-08-11 11:00 | DI.RAD_ITS ---
Exam(s) XR KNEE RT 1V EXAM: XR KNEE RT 1V CLINICAL HISTORY: 1st post op R TKA. TECHNIQUE: 2D digital imaging was performed. COMPARISON: CR XR KNEE LT 1V from 09/11/2019 FINDINGS: Single lateral view: Satisfactory position alignment of the components of the prosthesis. There patellar resurfacing IMPRESSION: DATA REPOSITORY: RADIATION DOSE DELIVERED:
== END 2021-08-11 11:17 | disposition home or self-care (01) ==
LOC: DIORS 11:17
PROVIDERS: PCP Family Medicine; Referring Provider Family Medicine; Visit Provider Physician Assistant Surgical
DX: Z96.651 Presence of right artificial knee joint (principal); Z47.1 Aftercare following joint replacement surgery
CPT/HCPCS: 73560; 77073

== ENCOUNTER → 2021-09-15 08:35 | Outpatient (BNVA) | payer MEDICARE, BC, SELFPAY | PROVIDERS: PCP Family Medicine; Referring Provider Family Medicine; Visit Provider Student in an Organized Health Care Education/Training Program | DX: Z47.1 Aftercare following joint replacement surgery (principal); Z96.651 Presence of right artificial knee joint ==

== ENCOUNTER 2022-06-29 18:17 | Outpatient (REF) | payer MEDICARE, BC, SELFPAY ==
[2022-06-29 21:09] LABS: Abs Immature Grans 0.02 10^3/uL (0.0-0.06); Absolute Basophil Count 0.04 10^3/uL (0.0-0.2); Absolute Eosinophil Count 0.41 10^3/uL (0.0-0.7); Absolute Lymphocyte Count 1.21 10^3/uL (1.2-3.4); Absolute Monocyte Count 0.54 10^3/uL (0.1-0.8); Absolute Neutrophil Count 5.44 10^3/uL (1.2-6.7); Basophils % 0.5; Eosinophils % 5.4; HCT 42.8 % (40.0-50.0); Immature Grans % 0.3; Lymphocytes % 15.8; MCH 32.4 pg (27.0-33.0); MCV 92 fL (80-95); MPV 10.5 fL (8.0-11.0); Platelet Count 225 10^3/uL (130-400); RBC 4.63 10^6/uL (4.36-5.78); RDW 12.6 % (11.8-14.1); RDW-SD 42.4 fL; WBC 7.66 10^3/uL (4.4-10.8)
[2022-06-29 21:24] LABS: ALT 12 U/L (16-63); AST 18 U/L (15-37); Albumin 3.8 g/dL (3.4-5.0); Alkaline Phosphatase 81 U/L (46-116); Anion Gap 5.4 mmol/L (3-11); BUN 21 mg/dL (7-18); Bilirubin, Total 0.4 mg/dL (0.2-1.0); CO2 30.6 mmol/L (21.0-32.0); CREATININE 1.1 mg/dL (0.70-1.30); Calcium 8.9 mg/dL (8.5-10.1); Chloride 104 mmol/L (98-107); Estimated GFR 71.32 (mL/min/1.73m2); Glucose 103 mg/dL (74-106); Lipase 30 U/L (16-77); Potassium 4.1 mmol/L (3.5-5.1); Sodium 140 mmol/L (136-145); Total Protein 6.6 g/dL (6.4-8.2)
== END 2022-06-29 18:18 | disposition home or self-care (01) ==
LOC: NCHCN 18:17
PROVIDERS: PCP Family Medicine; Visit Provider Family Medicine
DX: R00.2 Palpitations (principal); M79.18 Myalgia, other site
CPT/HCPCS: 80053; 83690; 85025

== ENCOUNTER 2022-07-20 01:04 | Outpatient (CLI) | payer MEDICARE, BC, SELFPAY ==
--- NOTE | 2022-07-20 09:15 | DI.NM_ITS ---
APPROVED REPORT Exam: Exercise Treadmill Patient Location: Out-Patient Room/Bed: Stress Nurse: Demetria Falcon RN Ordering Provider:ANKIT CASTLE, Contact Number: [phone] BMI: 31.19 Baseline Rhythm: Sinus Bradycardia, RBBB, PVC's Indications: Exertional chest pain. Medical History Medical History: Chronic palpitations. HTN. HLD. Mild cognitive impairment. BRIAN with CPAP. Anxiety/de pression. Cardiac Medications: HCTZ. Atorvastatin. Allergies: No known drug allergies Cardiac Risk Factors: FHX of CAD, HTN, Hyperlipidemia, former smoker Previous Cardiac Procedures: none Pretest Chest Pain Characteristics: No chest pain Exercise History: Indeterminate Physical Disabilities: None Lung Sounds: Clear to auscultation Heart Sounds: Irregular Stress Test Details Test: Exercise stress testing was performed using a Jovon protocol. Rest Isotope: Tc-99m Sestamibi. Dose: 10.8 Date: 07/20/2022 Injection Time: 0905 Stress Isotope: Tc-99m Sestamibi. Dose: 32.0 Date: 07/20/2022 Injection Time: 1105 HR Resting HR Supine: 58 bpm Max Heart Rate (APMHR): 148.760079 bpm Resting HR Standin bpm Target HR (85% APMHR): 125.360489 bpm Max HR Achieved: 135 bpm % of APMHR: 91.22 Recovery HR: 82 bpm HR response to stress: Normal HR response to stress BP Resting BP Supine: 146/78 mmHg Resting BP Standin/82 mmHg Max BP: 192/84 mmHg Recovery BP: 152/72 mmHg BP response to stress: Normal blood pressure response to stress. ECG Resting ECG: Sinus Bradycardia, RBBB Ectopy: PVCs Stress ECG: Sinus Tachycardia ST Change: ST segment abnormalities noted in lead V4 Arrhythmia: APC's, VPC's, occasional ventricular couplets and 3 beat PVC run noted x1. Recovery ECG: Sinus Rhythm Recovery ST Change: ST segment abnormalities noted in lead V4 returned to baseline during recovery Recovery Arrhythmia: APC, VPC Clinical Reason for Termination: Target HR Achieved Stress Symptoms: General Fatigue Exercise duration: 09 min52 sec Highest Stage Reached: Stage 3: 3.4 mph at 14% grade. Exercise capacity: 10.16 METs Angina Score: None Gomez Treadmill Score: 8.0 Rate Pressure Product: 71119 Stress ECG Conclusion 1. The resting electrocardiogram showed right bundle branch block 2. Patient exercised on the Jovon protocol and completed a workload of 10.16 METS 3. Normal heart rate and blood pressure response to exercise. The patient achieved 91% predicted hea rt rate for age 4. There was no electrocardiographic evidence of myocardial ischemia 5. Sporadic PVCs were seen 6. See MPI report Gomez Treadmill Score is 8.0 which is Low risk. Stress Test Summary STAGE Time (mins) Speed (mph) Grade (%) HR BP SpO2 SYMPTOMS METS Supine 58 146/78 92 Standing 60 136/82 1 3 1.7 10 88 142/74 4.5 2 6 2.5 12 103 162/78 7 3 9 3.4 14 132 10 1 min recovery 110 178/74 94 3 min recovery 90 192/84 6 min recovery 82 152/72 98 MPI Conclusion Myocardial perfusion is normal. There is no ischemia or evidence of prior infarction Ejection fraction is 52%, wall motion is normal Radiologist Interpretation Radiologist agrees with Skein Bleacher's Interpretation. Radiologist Interpretation by: Dawit Castaneda MD Interpretation Date/Time: 07/20/2022 19:49:39
== END 2022-07-20 01:24 ==
PROVIDERS: PCP Family Medicine; Visit Provider Family Medicine
DX: R07.89 Other chest pain (principal)
CPT/HCPCS: 78452; 93016; 93018; 93017

== ENCOUNTER 2022-07-31 09:26 | Outpatient (CLI) | payer MEDICARE, BC, SELFPAY ==
--- NOTE | 2022-07-31 08:45 | DI.RAD_ITS ---
Exam(s) XR KNEE RT 2V AP,LAT EXAM: XR KNEE RT 2V AP,LAT CLINICAL HISTORY: ANNUAL F/U R TKA. TECHNIQUE: 2D digital imaging was performed. Two images were obtained. AP and lateral views were ob tained. COMPARISON: CR KNEES BILAT AP PA UP LATS from 06/25/2017 CR XR STANDING ALIGNMENT from 08/11/2021 CR XR KNEE RT 1V from 08/11/2021 FINDINGS: BONES: There are stable post operative changes present. No fracture or dislocation. JOINTS: The orthopedic hardware is in good position. No evidence of hardware loosening. SOFT TISSUE: Normal. IMPRESSION: Stable postoperative changes. DATA REPOSITORY: RADIATION DOSE DELIVERED:
== END 2022-07-31 09:27 | disposition home or self-care (01) ==
LOC: DIORS 09:26
PROVIDERS: PCP Family Medicine; Referring Provider Family Medicine; Visit Provider Student in an Organized Health Care Education/Training Program
DX: Z96.651 Presence of right artificial knee joint (principal); Z47.1 Aftercare following joint replacement surgery
CPT/HCPCS: 99213; 73560

== ENCOUNTER 2022-08-15 02:37 | Outpatient (CLI) | payer MEDICARE, BC, SELFPAY ==
--- NOTE | 2022-08-15 | DI.CT_ITS ---
Exam(s) CT ABDOMEN PELVIS W EXAM: CT ABDOMEN PELVIS W CLINICAL HISTORY: ACUTE ABD PAIN, R10.9 TECHNIQUE: Imaging Protocol: Axial computed tomography images with coronal and sagittal reformatted images were created and reviewed CONTRAST MATERIAL: Intravenous: Omnipaque 350 Contrast volume:100 mL Oral: Yes COMPARISON: There are no priors for comparison. FINDINGS: ABDOMEN: Lung Bases: Mild coronary artery calcification. There is an 8 mm nodule in the right lower lobe at t he level of the diaphragm. Liver: Normal density. There is a small cyst in the right lobe of the liver. No follow-up is recomme nded no suspicious hepatic lesions are identified. Portal, Superior Mesenteric, and Splenic Veins: Unremarkable. Gallbladder and Biliary Tract: No radiodense calculus or dilation. Pancreas: Normal density, no abnormal calcifications or inflammatory process. Spleen: Normal. Adrenals: No masses seen. Kidneys: Normal size, contour and axis. No radiodense stones or obstructive uropathy. There are bilat eral renal cysts. There are homogeneously low attenuation. No solid components are seen. No follow -up is recommended. There is a circum aortic left renal vein. Abdominal Aorta: Abdominal portion non-dilated. Atherosclerosis is present. Bowel: No obstruction or bowel wall thickening. Appendix is unremarkable. Peritoneal Cavity: No ascites, collection or mesenteric inflammatory response. No free air. Lymph Nodes: Within normal limits. Bones: Within normal limits for the patient's age. There is a sclerotic focus in the right iliac bon e. Soft Tissues: Small fat containing right inguinal hernia. Small fat containing umbilical hernia. PELVIS: Bladder: Symmetric distention, no gross wall thickening. Reproductive Organs: Mildly enlarged prostate gland. Lymph Nodes: Within normal limits. Bones: Within normal limits for the patient's age. IMPRESSION: 1. No acute abdominal or pelvic process. 2. 8 mm nodule in the right lower lobe of the lung. For low and high risk patients, initial follow-u p examination in 6-12 months is recommended. For high risk patients a follow-up examination in 18-24 months is recommended. (High risk includes those patients with a history of smoking or other risk f actors.) 3. Sclerotic focus in the right iliac bone. This is nonspecific and may represent a bone island. If there is a history of cancer, bone scan may be considered. Unexpected findings RADIATION DOSE DELIVERED: 1,005.43mGy.cm Total DLP DATA REPOSITORY: All CT scans at this facility are submitted to the National Radiology Data Registry (NRDR) Dose Index Registry (DIR) with the [employer] (ACR). RADIATION OPTIMIZATION: All CT scans at this facility use at least one of these dose optimization te chniques: automated exposure control; mA and/or kV adjustment per patient size (includes targeted exa ms where dose is matched to clinical indication); or iterative reconstruction.
[2022-08-15] MEDS: Barium Sulfate 2% W/V-Creamy Vanilla Smoothie 450 ML BTL PO (09:14)
[2022-08-15] MEDS: Omnipaque 350 MG/ML 500 ML BTL-Imaging package IJ (09:21)
== END 2022-08-15 02:57 ==
LOC: DI 02:38
PROVIDERS: PCP Family Medicine; Visit Provider Family Medicine
DX: R91.1 Solitary pulmonary nodule (principal); M89.9 Disorder of bone, unspecified; R10.9 Unspecified abdominal pain
CPT/HCPCS: 74177

== ENCOUNTER → 2022-08-24 10:10 | Outpatient (BNVA) | payer MEDICARE, BC, SELFPAY | PROVIDERS: PCP Family Medicine; Referring Provider Family Medicine; Visit Provider Surgery | DX: R10.9 Unspecified abdominal pain (principal); K42.9 Umbilical hernia without obstruction or gangrene; K40.91 Unilateral inguinal hernia, without obstruction or gangrene, recurrent | CPT/HCPCS: 99215; 99242 ==

== ENCOUNTER 2022-08-29 07:33 | Day surgery (SDC) | payer MEDICARE, BC, SELFPAY ==
--- NOTE | 2022-08-28 16:15 | ENDO_ITS ---
Date of service: 08/29/22 Time of Service: 09:00 Endoscopy Report DATE OF PROCEDURE: 08/29/22 PRE-OP DIAGNOSIS: spontaneous vomting POST-OP DIAGNOSIS: other (3cm hiatal hernia/fundic polyps ) SURGEON: Ifeoma England ANESTHESIA TYPE: General:No Airway ESTIMATED BLOOD LOSS: 1 PATHOLOGY: other COMPLICATIONS: None DISPOSITION: same day PROCEDURE DESCRIPTION: After informed consent was obtained the patient was take to the procedure room and placed in a supine position. Monitors were applied and a time out was done. The patients name, date of , procedure type, allergies to medications and metal in their body was reviewed. A bite block was placed and the patient was sedated. Once sedated and comfortable the gastroscope was advanced through the oropharynx which was grossly normal into the esophagus. The proximal and mid- esophagus were normal. The distal esophagus shows: No varices, erosions, diverticula, or strictures. He does have a small 3 cm sliding-type hiatal hernia. The scope was advanced into the stomach and through the pylorus into the 3rd portion of the duodenum. The duodenum was noted to be normal. Biopsies were done, all specimens are retrieved and no bleeding is noted. The scope was retracted back into the stomach and biopsies were done to rule out H. pylori. There are multiple small polyps lining the stomach. A data entry representative polyp was biopsied. He has not been on chronic PPI therapy. There were no gastritis or ulcers. The scope was retroflexed. The cardia and fundus were noted to be normal. There is a 1 cm type sliding hiatal hernia The scope was retracted back into the esophagus and biopsies were done of the GE junction to rule out Gandara's. The Z line was regular. The GE junction was at 35 cm. The scope was removed and the patient was woken up and taken back to [facility] in stable condition. Follow up: CE on Sunday See discharge instructions
--- NOTE | 2022-08-28 16:16 | PDOC.DSDIS_ITS ---
Date of service: 08/29/22 Time of Service: 09:28 Discharge Plan Disposition Patient Disposition: Home Discharge Details Attending Provider: Ifeoma England Primary Care Provider: Giorgi Green Home Meds and New Rx's Prescriptions: No Action atorvastatin 40 mg tablet 40 mg PO QHS polyethylene glycol 3350 17 gram/dose powder 238 g PO ONCE Qty: 238 0RF Rx Instructions: take per colonoscopy instructions bisacodyl [Dulcolax (bisacodyl)] 5 mg tablet,delayed release (DR/EC) 5 mg PO ONCE Qty: 4 0RF Rx Instructions: take per colonoscopy instructions polyethylene glycol 3350 17 gram/dose powder 238 g PO ONCE Qty: 238 0RF Rx Instructions: take per colonoscopy instructions bisacodyl [Dulcolax (bisacodyl)] 5 mg tablet,delayed release (DR/EC) 5 mg PO ONCE Qty: 8 0RF Rx Instructions: take per colonoscopy instructions acetaminophen 500 mg tablet 1,000 mg PO Q8H PRN (Reason: pain) Qty: 90 3RF fluorouracil 5 % cream 1 applic topical BID Rx Instructions: apply sufficient amount to cover all lesions sertraline 100 mg tablet 200 mg PO DAILY clotrimazole 1 % cream 1 applic topical BID penciclovir [Denavir] 1.5 GM cream 1 ea Topical PRN PRN Patient Comments: Pt reports no longer takes hydrochlorothiazide 25 mg tablet 12.5 mg PO DAILY Discharge Instructions Additional Instructions: Post EGD Instruction ?You had anesthesia for your EGD/stomach scope today.? For your safety, please do the following for the next twenty-four (24) hours: Do Not operate a motor vehicle (car, truck, motorcycle, etc.) Do Not drink alcoholic beverages or use any recreational drugs for the first 24 hours or while taking pain medications. The medications in your body may have a reaction that can be dangerous. Do Not make any important decisions or sign any important papers You have just had a gastroscopy (EGD) or upper GI tract examination. It is important for your smooth recovery that you carefully follow the recommendations below. Do not hesitate to call if any questions should arise about your anesthesia, condition, or care. -Symptoms you may experience during the next 24 hours: ?1. Mild abdominal pain or excessive gas or a bloated feeling which improves with rest, liquids, eating? slightly, and walking as tolerated. 2. Drowsiness and/or forgetfulness because of the medications you were given. ?3. Throat numbness for about 1 hour. 4. A sore throat which you can treat with throat lozenges or by gargling with salt water 4-5 times a day. 5. Redness at the site of your IV which you can treat with warm compresses. SPECIAL INSTRUCTIONS: 1. You may resume your previous diet in one hour. We recommend a light meal to start, then progress as tolerated. 2. Restart regular medications in one hour. 3. No aspirin or non-steroidal containing medication for three days. 4. No lifting over 20 pounds or strenuous activity for the first 24 hours after your procedure. After 24 hours there are no restrictions on your activity, but you may feel fatigued for a few days. Findings: hiatal hernia -see handout -Medications: Protonix -Continue to follow lifestyle modifications: No alcohol, tobacco products, Aspirin or NSAID's (ibuprofen, Motrin, Naprosyn, aleve, etc).? Try to limit/avoid:? soda pop/any carbonated beverages, caffeine (including tea & chocolate), and acidic foods, (tomatoes, citrus, onions, peppermints) spicy or fried/fatty foods. Do not lie down for 30 minutes after eating, and do not eat 2 hours prior to bedtime. Avoid wearing tight fitting clothing/ belts. -Colonoscopy on Sunday Call the office at [phone] (Office) or [phone] (Hospital), or go to the ER right away if you notice any of the followin. Vomiting blood and /or ?coffee ground? material. ?2. Worsening of abdominal pain or cramping. ?3. Trouble with breathing, cough, and/or fever (temperature above 101.5 F). 4. Increasing pain with swallowing. ?5. Chest pain. 6. Any new symptoms. 7. Worsening of the redness at the IV site Activity:: Activity as Tolerated Diet:: see above Discharge Orders Discharge Orders: Discharge Order (Routine); Ordered 08/29/22 Ordered By: Ifeoma England DS: Diagnosis Discharge Diagnosis (1) Regurgitation of stomach contents: Status: Acute (2) Hiatal hernia with GERD: Status: Acute Asessment and Plan: Patient is seen and examined after they are endoscopy.? Patient has minimal sore throat.? They have been able to tolerate liquids.? They do not have any nausea vomiting.? They are not having any chest pain or shortness of breath.? They have been able to pass gas and are not having any abdominal pain or distention.? They have not vomited any blood.? The vital signs have been stable-see nursing notes. We discussed findings on their endoscopy. We reviewed the importance of lifestyle modification-see discharge instructions We reviewed any new medications that the patient may be prescribed-see discharge instructions Patient will either be sent a letter with the biopsy results or follow-up in the office-see discharge instructions. Patient was given explicit instructions to follow-up regarding post endoscopy- refer to discharge Patient verbalized understanding and discharged in stable and satisfactory condition.? See nursing notes. (3) Mild cognitive impairment: Status: Acute (4) Hx of sleep apnea:
--- NOTE | 2022-08-29 | DI.RAD_ITS ---
Exam(s) XR ABDOMEN FLAT PLATE EXAM: 2D digital imaging was performed. CLINICAL HISTORY: SBO. COMPARISON: CT CT ABDOMEN PELVIS W from 08/15/2022 TECHNIQUE: Supine views of the abdomen was performed. Two images were obtained. FINDINGS: LUNG BASES: Clear. BOWEL GAS PATTERN: Nondistended. There is a moderate amount of stool throughout the colon suggesting constipation. FREE AIR: None. CALCIFICATIONS: Atherosclerosis is present. OSSEOUS STRUCTURES: Normal for age. There is a left convex curvature of the lumbar spine. OTHER FINDINGS: None. IMPRESSION: 1. No evidence of bowel obstruction. 2. Findings suggestive of constipation. DATA REPOSITORY: RADIATION DOSE DELIVERED:
[2022-08-29 07:38] VITALS: BP 128/78; PULSE 58; RESP 16; TEMP 36.4; O2SAT 97
--- NOTE | 2022-08-29 08:10 | ANES.PREOP_ITS ---
General Info Date of Service Date Performed: 08/29/22 Height: 6 ft Weight: 96.7 kg Body Mass Index (BMI): 28.9 Surgical Procedure: Operation Date: 08/29/22 09:05 Proposed Procedure Side Surgeon p Gastroscopy Right Ifeoma England DO Meds Allergies and Home Medications Allergies Allergy/AdvReac Type Severity Reaction Status Date / Time No Known Allergies Allergy Unverified 08/29/22 07:56 Home Medication Medication Instructions Recorded penciclovir 1 % topical cream 1 ea topical PRN PRN 04/24/14 (Denavir) acetaminophen 500 mg tablet 1,000 mg PO Q8H PRN pain #90 tabs 12/08/19 fluorouracil 5 % topical cream 1 applic topical BID 04/19/20 atorvastatin 40 mg tablet 40 mg PO QHS 06/23/20 hydrochlorothiazide 25 mg tablet 12.5 mg PO DAILY 07/14/21 clotrimazole 1 % topical cream 1 applic topical BID 08/23/22 sertraline 100 mg tablet 200 mg PO DAILY 08/23/22 bisacodyl 5 mg tablet,delayed 5 mg PO ONCE colonscopy bowel prep 08/24/22 release (Dulcolax (bisacodyl)) #4 tabs polyethylene glycol 3350 17 238 g PO ONCE colonoscopy prep 08/24/22 gram/dose oral powder #238 grams Current Visit Medications: Current Medications Generic Name Dose Route Start Last Admin Trade Name Freq PRN Reason Stop Dose Admin Hyoscyamine Sulfate 0.125 mg 08/29/22 04:14 Hyoscyamine 0.125 Mg Sl/Oral/Chew SL 09/28/22 04:13 DIRECTED PRN Ringer's Solution 1,000 mls @ 80 mls/hr 08/29/22 06:00 IV 09/27/22 23:59 INF[facility]ION [facility] IV Miscellaneous Supplies 1 each 08/29/22 06:00 Iv Access IV 09/27/22 23:59 DIRECTED VERNA Ondansetron HCl 4 mg 08/29/22 04:14 Ondansetron 4 Mg/2 Ml Vial IVP 09/28/22 04:13 Q4H PRN PRN Nausea / Vomiting Sodium Chloride 0 ml 08/29/22 06:00 Normal Saline Flush 10 Ml Syr IV 09/27/22 23:59 PRN PRN Sodium Chloride 0 ml 08/29/22 06:00 Normal Saline 10 Ml Vial IJ 09/27/22 23:59 DIRECTED PRN Sterile Water 0 ml 08/29/22 06:00 Water,Injection,Sterile 10 Ml Vial IJ 09/27/22 23:59 DIRECTED PRN PFSH Active Problems Active Problems: Problem Status Onset Code Tinnitus 07/01/13 H93.19 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 Sensorineural hearing loss, bilateral 07/01/13 H90.3 Primary osteoarthritis of right knee 09/26/17 M17.11 Neoplasm of skin 06/30/13 D49.2 Impacted cerumen of both ears H61.23 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 Memory deficit R41.3 Mild cognitive impairment G31.84 History of total right knee replacement 07/26/21 Z96.651 Abdominal pain R10.9 Seborrheic dermatitis of scalp L21.9 Musculoskeletal pain M79.18 Trochanteric bursitis, right hip M70.61 Inguinal hernia, recurrent K40.91 Umbilical hernia K42.9 Coronary artery calcification seen on CAT scan I25.10 Regurgitation of stomach contents R11.10 Medical History Medical History Actinic keratoses Anxiety with depression Carpal tunnel syndrome Essential hypertension Hearing loss History of degenerative joint disease History of onychomycosis Hx of colonic polyps Hx of psoriasis Hx of sleep apnea uses CPAP Hyperlipidemia Memory loss Obstructive sleep apnea Palpitations Per pt. states he has not had palpatations for years Restless leg syndrome Rosacea Medical History Comments:: uses CPAP everynight. Surgical History Surgical History (Updated 08/29/22 @ 07:55 by Florencia Brady) H/O vasectomy History of hernia repair History of knee replacement Hx of colonoscopy (~04/2019) [place] - Tubular adenoma x4. Status post total left knee replacement Tobacco Smoking/Tobacco Use Status: Former Tobacco Use Alcohol Alcohol Intake: current Alcohol intake frequency: a few times a week Alcohol type: hard liquor Substance Use Substance use: Never Substance use type: does not use Vital Signs and Lab Results Vital Signs Most Recent Vital Signs in EMR: Most Recent Vital Signs Temp Pulse Resp BP Pulse Ox 36.4 C L 58 L 16 128/78 97 08/29/22 07:38 08/29/22 07:38 08/29/22 07:38 08/29/22 07:38 08/29/22 07:38 Lab Results Blood Type / Crossmatch: No Data to Display Complete Blood Count: No Data to Display Complete Metabolic Panel: 2 No Data to Display Liver Function Panel: No Data to Display Coagulation Panel: No Data to Display Cardiac Panel: No Data to Display Arterial Blood Gas: No Data to Display Venous Blood Gas: No Data to Display Pancreas Panel: No Data to Display Thyroid Panel: No Data to Display Infectious Disease: No Data to Display Blood Cultures: No Data to Display Toxicology Panel: No Data to Display Imaging and Studies Imaging and Studies Study information below may be from another EMR and interpreted by another provider. Please see original notes in EMR for more complete details. EKG Summary: Conclusion Sinus rhythm...normal P axis, V-rate 60- 99 Multiple ventricular premature complexes...V complexes w/ short R-R intervls Right bundle branch block...QRSd>120, terminal axis(90,270) 07/26/21 Stress Test Summary: Stress ECG Conclusion 1. The resting electrocardiogram showed right bundle branch block 2. Patient exercised on the Jovon protocol and completed a workload of 10.16 METS 3. Normal heart rate and blood pressure response to exercise. The patient achieved 91% predicted heart rate for age 4. There was no electrocardiographic evidence of myocardial ischemia 5. Sporadic PVCs were seen 6. See MPI report Gomez Treadmill Score is 8.0 which is Low risk. 07/20/22 Anesthesia Assessment and Plan Anesthesia History Personal History: No History of Anesthesia Complications Family History: No Family History of Anesthesia Complications Exercise Tolerance Exercise Tolerance: Metabolic Equivalents>4 Pertinent Negatives Pertinent Negatives: No Major Cardiovascular Symptoms or Complaints and No Major Pulmonary Symptoms or Complaints Cardiac & Pulmonary Exam Cardiac Exam: Normal S1/S2 Heart Sounds Pulmonary Exam: Clear Bilateral Breath Sounds Cardiac and Pulmonary Comment:: BRIAN, CPAP every night Implantable Cardiac Device Does patient have a Pacemaker or an ICD?: No Airway Exam Known Difficult Airway: No Mallampati Class: 2 Mouth Opening: Normal (> 3cm) Thyromental Distance: Greater than 3 cm Neck Range of Motion: Full ROM Neck Circumference: Normal Teeth Condition: Normal Dentition and Loose or Chipped (Tooth 13 chipped) ASA Classification ASA Score: ASA 2 Emergency Case?: No NPO Status NPO Status: NPO Clears >2 hours, Solids >8 hours Anesthesia Plan Resuscitation Status: Full Code Anesthesia Technique: General Anesthesia Airway Planned: Natural Airway Monitors Used: Standard Monitors Preoperative Comments:: Vomiting every 2-3 days, postponing hernia repairs until evaluated.
[2022-08-29] MEDS: Lactated Ringers 1,000 ML 80 ML IV (08:16)
[2022-08-29 08:32] VITALS: BMI 28.9
--- NOTE | 2022-08-29 09:03 | STOM_PTH ---
PATIENT: Nicholas Seth LOC: [facility] U#:[id number] AGE/SX: 72/M ROOM: RE08/29/[address]: Ifeoma England : 1950 BED: DIS: 08/29/2022 SPEC #: [id number] RECD: 08/29/22 12:48 STATUS: ALVARO BULLARD #: [id number] MARTÍN: 08/29/22 09:[address]: Ifeoma England DEPT: Surgical Specimen RECD BY: Kaya Mcgrath ENTERED: 08/29/22 12:51 SP TYPE: STOMACH OTHR DR: Giorgi Green Tissues: 1 - BIOPSY BOWEL 2 - BIOPSY BOWEL 3 - STOMACH BIOPSY 4 - STOMACH BIOPSY 5 - STOMACH BIOPSY 6 - ESOPHAGUS BIOPSY 7 - ESOPHAGUS BIOPSY Procedures: GROSS AND MICRO LEVEL 4 Comments: [id number]
[2022-08-29 09:17] VITALS: BP 108/66; PULSE 58; RESP 16; TEMP 36.4; O2SAT 96
[2022-08-29 10:00] VITALS: BP 125/80; PULSE 69; RESP 18; O2SAT 98
--- NOTE | 2022-08-29 10:09 | W.ANESPOSTOP ---
Postoperative Evaluation Date, Time and Location Date Performed: 08/29/22 Time Performed: 10:09 Patient Location: Day Surgery Unit Vital Signs Most Recent Imported Vital Signs: Most Recent Vital Signs Temp Pulse Resp BP Pulse Ox 36.4 C L 58 L 16 108/66 96 08/29/22 09:17 08/29/22 09:17 08/29/22 09:17 08/29/22 09:17 08/29/22 09:17 Assessment Mental Status: Awake (Alert & Oriented to Patient Baseline) Airway and Respiratory Function: Patent airway with normal (patient baseline) respiratory exam Cardiovascular Function: Hemodynamically Stable Hydration Status: Adequately Hydrated Nausea & Vomiting: No Nausea or Vomiting Pain: Pt. Denies Any Pain Peripheral Nerve Block: Patient did not receive a nerve block
== END 2022-08-29 10:27 | disposition home or self-care (01) ==
LOC: SUR 07:34
PROVIDERS: PCP Family Medicine; Visit Provider Surgery
PROC: 0DJ68ZZ Inspection of Stomach, Via Natural or Artificial Opening Endoscopic (ICD-10-PCS; CPT 43235; principal; 2022-08-29 09:00)
DX: R11.10 Vomiting, unspecified (principal); K44.9 Diaphragmatic hernia without obstruction or gangrene; K31.7 Polyp of stomach and duodenum; K22.89 Other specified disease of esophagus; K31.89 Other diseases of stomach and duodenum
CPT/HCPCS: 43239; 88305; 74018; J2001; J2704

== ENCOUNTER 2022-09-01 13:07 | Day surgery (SDC) | payer MEDICARE, BC, SELFPAY ==
--- NOTE | 2022-08-31 21:10 | HPE_ITS ---
Date of service: 09/01/22 Time of Service: 01:30 Assessment and Plan Assessment and plan (1) Unexplained weight loss: Status: Acute (2) Poor appetite: Status: Acute (3) Hiatal hernia: Status: Chronic (4) Constipation: Status: Acute (5) Change in bowel function: Status: Acute Assessment and plan: Plan: Colonoscopy w/ general & natural airway. The?patient will be scheduled by my office. Informed consent is obtained for the procedural (explained in simple layman's terms that?the pt and/or family could understand) explaining risks vs benefits and alternatives to the procedure and consequences if we do not do the procedure and need/rational for the procedure. Risks include but are not limited to: bleeding, infection, perforation of colon.? This would necessitate emergency surgery to repair the damage w/ possible ostomy; and other associated complications w/ the required surgery. ? Also complications of anesthesia including aspiration, WA/CVA/, inability to complete the procedure. I discussed with the?patient would they could expect during the procedure, post procedure and recovery time and risks.? The patient understands that they need to have a ride home after the procedure.? The patient was given all this information in writing and expressed understanding. If there are any questions or concerns please feel free to contact our office.? Generally Colonoscopy does not require antibiotics prophylaxis, (6) Squamous cell carcinoma in situ: Status: Acute (7) Sensorineural hearing loss, bilateral: Status: Acute (8) Mild cognitive impairment: Status: Acute (9) Inguinal hernia, recurrent: Status: Acute (10) Hyperlipidemia: (11) Obstructive sleep apnea: (12) Essential hypertension: History of Present Illness Narrative: Patient is here today for colonoscopy for constipation/changes in bowels/abdominal pain/vomting.??? They completed a bowel prep with just a clear yellow residual effluent.? They not having any chest pain or shortness of breath, currently.? They are not experiencing any fever or chills.? They deny any productive cough or upper respiratory tract infection signs or symptoms.? They are not having abdominal pain, or nausea and vomiting.? They have not had any changes in medications, past medical history or past surgical history since previously being seen in the office. They have not had any accidents or have been in the ER since the clinic pre-operative evaluation. ??I reviewed the procedure with the patient today, including risks and benefits of the procedure, and what they could expect at home for recovery.? All questions are answered to the patient?s satisfaction today, and they are stable to proceed with the proposed procedure. Pt does have a R inguinal hernia that we are in the process of getting set for repair. Pt has had several episodes of spontaneous vomting. He had an EGD on Sunday- this did show a 3cm hiatal hernia. I don't think this is large enough to require repair and he can manage this w/ PPI and lifestyle modifications. Pt has had some issues w/appetie/unexplained wt loss/changes in bowel habits and constipation. labs and CT were nl. PLan on CE today Informed consent is obtained for the procedural (explained in simple layman's terms that the pt. and/or family could understand) explaining risks vs benefits and alternatives to the procedure and consequences if we do not do the procedure and need/rational for the procedure. Risks include but are not limited to: bleeding, infection, perforation of esophagus, stomach, colon, small intestines, bronchus or trachea, or PTX. This would necessitate emergency surgery to repair the damage w/ possible ostomy; and other associated complications w/ the required surgery. Also complications of anesthesia including aspiration, WA/CVA/. Pt also is having gregg eissues w/ dementia -he was seen at the memory clinic at [facility] and found to have mild cognitive impairment. I do have concerns that he may not be eating regular meals with his and may be snacking and making unhealthy food choices unbeknownst to his . And this may be why he is not hungry and eating at mealtimes. He denies loss of sense of taste or smell. He states he just simply has no appetite. Again he has also had several episodes of random vomiting. EGD did reveal hiatal hernia if the CE is normal, than re-schedule for hernia surgery for next week. PFSH All Active Problems (Updated 09/01/22 @ 15:00 by Ifeoma England DO) Diverticula of colon (Acute) sigmoid- minor Dx CE 09/01 Change in bowel function (Acute) Constipation (Acute) Hiatal hernia (Chronic) Poor appetite (Acute) Unexplained weight loss (Acute) Tinnitus (Acute 07/01/13) 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) Sensorineural hearing loss, bilateral (Acute 07/01/13) Primary osteoarthritis of right knee (Acute 09/26/17) Injection: 08/12/2018 Neoplasm of skin (Acute 06/30/13) Impacted cerumen of both ears (Acute) Squamous cell carcinoma in situ (SCCIS) (Acute) Memory deficit (Acute) Mild cognitive impairment (Acute) History of total right knee replacement (Acute 07/26/21) DOS 07/26/21 Abdominal pain (Acute) Seborrheic dermatitis of scalp (Acute) Musculoskeletal pain (Acute) Trochanteric bursitis, right hip (Acute) Inguinal hernia, recurrent (Acute) Umbilical hernia (Acute) Coronary artery calcification seen on CAT scan (Acute) Regurgitation of stomach contents (Acute) Hiatal hernia with GERD (Acute) Medical History (Updated 09/01/22 @ 15:00 by Ifeoma England DO) Actinic keratoses Anxiety with depression Carpal tunnel syndrome Essential hypertension Hearing loss History of degenerative joint disease History of onychomycosis Hx of colonic polyps Hx of psoriasis Hx of sleep apnea uses CPAP Hyperlipidemia Memory loss Obstructive sleep apnea Palpitations Per pt. states he has not had palpatations for years Restless leg syndrome Rosacea Surgical History H/O vasectomy History of esophagogastroduodenoscopy (EGD) History of hernia repair History of knee replacement Hx of colonoscopy (~04/2019) [place] - Tubular adenoma x4. Status post total left knee replacement Social History Smoking/Tobacco Use Status: Former Tobacco Use Quit Date: 03/12/80 Smoking risk assessment performed?: Yes Alcohol Intake: current Alcohol Intake frequency: a few times a week Alcohol type: hard liquor Drug use: Never Substance use type: does not use Household members: spouse Housing: house Number of Children: 3 number of grandchildren: 0 Pets and animals: Yes Pets and animals: dog(s) Current gender identity: male What is your relationship status?: Panel score (0-1 are the most socially isolated patients): 1 What type of physical activity do you participate in: walking Seatbelt use: always Do you feel safe at home: Yes Do you feel safe in your relationship?: Yes Meds Allergies and Home Medications Allergies Allergy/AdvReac Type Severity Reaction Status Date / Time No Known Allergies Allergy Verified 09/01/22 13:28 Home Medications Medication Instructions Recorded Confirmed Type penciclovir 1 % topical cream 1 ea topical PRN PRN 04/24/14 09/01/22 History (Denavir) acetaminophen 500 mg tablet 1,000 mg PO Q8H PRN pain #90 tabs 12/08/19 09/01/22 Rx fluorouracil 5 % topical cream 1 applic topical BID 04/19/20 09/01/22 History atorvastatin 40 mg tablet (Lipitor) 40 mg PO QHS 06/23/20 09/01/22 History hydrochlorothiazide 25 mg tablet 12.5 mg PO DAILY 07/14/21 09/01/22 History clotrimazole 1 % topical cream 1 applic topical BID 08/23/22 09/01/22 History sertraline 100 mg tablet 200 mg PO DAILY 08/23/22 09/01/22 History pantoprazole 40 mg tablet,delayed 40 mg PO DAILY #30 tabs 08/29/22 09/01/22 Rx release (Protonix) Exam Narrative Exam Narrative: PHYSICAL EXAM GENERAL APPEARANCE: Alert, healthy appearance, oriented, x 3,? in no acute distress HYDRATION: Well hydrated HEAD, EYES, EARS, NECK, THROAT: Head is normocephalic, pupils equal, round, reactive to light and accommodation, ocular movement intact, sclera clear and no jaundice. ?Dentition intact. No sore throat.? LUNGS: normal respiration/normal chest excursion. ?Clear to auscultation bilaterally. ?No wheeze. ?HEART: Regular rate and rhythm. no murmurs How to do this ABDOMEN: soft and non-tender to palpation.? Normal bowel sounds.? Time Spent Time spent with Patient: <40 minutes Time was spent: preparing to see the patient(eg.review tests), obtaining and/or reviewing separately otained hiistory, ordering medications,tests, procedures, referring, communicating with other health career technical education teacher, indepentently interpreting results and counseling the patient
--- NOTE | 2022-08-31 21:27 | PDOC.DSDIS_ITS ---
Date of service: 09/01/22 Time of Service: 15:04 Discharge Plan Disposition Patient Disposition: Home Condition: Good Discharge Details Reason For Visit: colon scope Attending Provider: Ifeoma England Primary Care Provider: Giorgi Green Home Meds and New Rx's Prescriptions: Continued atorvastatin [Lipitor] 40 mg tablet 40 mg PO QHS acetaminophen 500 mg tablet 1,000 mg PO Q8H PRN (Reason: pain) Qty: 90 3RF fluorouracil 5 % cream 1 applic topical BID Rx Instructions: apply sufficient amount to cover all lesions sertraline 100 mg tablet 200 mg PO DAILY clotrimazole 1 % cream 1 applic topical BID penciclovir [Denavir] 1.5 GM cream 1 ea Topical PRN PRN Patient Comments: Pt reports no longer takes hydrochlorothiazide 25 mg tablet 12.5 mg PO DAILY pantoprazole [Protonix] 40 mg tablet,delayed release (DR/EC) 40 mg PO DAILY Qty: 30 12RF Discontinued polyethylene glycol 3350 17 gram/dose powder 238 g PO ONCE Qty: 238 0RF Rx Instructions: take per colonoscopy instructions bisacodyl [Dulcolax (bisacodyl)] 5 mg tablet,delayed release (DR/EC) 5 mg PO ONCE Qty: 4 0RF Rx Instructions: take per colonoscopy instructions polyethylene glycol 3350 17 gram/dose powder 238 g PO ONCE Qty: 238 0RF Rx Instructions: take per colonoscopy instructions bisacodyl [Dulcolax (bisacodyl)] 5 mg tablet,delayed release (DR/EC) 5 mg PO ONCE Qty: 8 0RF Rx Instructions: take per colonoscopy instructions Discharge Instructions Additional Instructions: [facility] Colonoscopy Post- Op Instructions Instructions for Everyone who is given Anesthesia: For your safety, please do the following for the next twenty-four (24) hours: *Do Not operate a motor vehicle (car, truck, motorcycle, etc.) *Do Not drink alcoholic beverages or use any recreational drugs for the first 24 hours or while taking pain medications. The medications in your body may have a reaction that can be dangerous. *Do Not make any important decisions or sign any important papers. Findings: -Minor diverticulosis. Make sure you are moving your bowels on a regular basis and not straining to go to the bathroom. If you find you have problems with chronic constipation, I recommend you start a fiber supplement daily such as Metamucil. Follow up: -Back umbilical and right inguinal hernia surgery next September 05. Nothing to eat or drink at midnight. Following that hospital will call you Sunday after noon to tell you what time to be about hospital. You can be up walking around after surgery. No lifting over 5 pounds for 2 weeks. 1. No lifting over 20 pounds or strenuous activity for the first 24 hours after your procedure. After 24 hours there are no restrictions on your activity but you may feel fatigued for a few days. 2. After you arrive home you may have a light meal and return to your normal diet as you can tolerate it without feeling sick to your stomach. 3. You may have a bloated, gaseous feeling in your belly (abdomen) after a colonoscopy. Passing gas and belching will help. Walking or lying down on your left side with your knees flexed may relieve the discomfort. Call the office at [phone] (Office) or [phone] (Hospital) right away if you notice any of the following: a.Vomiting of blood or ?coffee ground stools?. b.Rectal bleeding 1Tbsp, blood clots or continuous bleeding. c.Severe belly (abdominal) pain. d.A hard distended belly (abdomen) and an inability to pass gas. 4. Please don?t expect to have a normal BM (bowel movement) for 2-3 days after your procedure. 5. If there are questions regarding the findings of your procedure, please contact your doctor 6. If you are unable to contact your doctor with a problem, contact the hospital at [phone]. 7. Continue all your regular medications unless directed otherwise. I understand the above instructions and have no questions. Signature of Patient or Adult Escort Name of Responsible Adult Escort Signature of Nurse Date/Time DIVERTICULAR DISEASE OVERVIEW???A diverticulum is a pouch-like structure that can form through points of weakness in the muscular wall of the colon (ie, at points where blood vessels pass through the wall). Diverticulosis affects men and women equally. The risk of diverticular disease increases with age. It occurs throughout the world but is seen more commonly in developed countries. WHAT IS DIVERTICULAR DISEASE? Diverticulosis???Diverticulosis merely describes the presence of diverticula. Diverticulosis is often found during a test done for other reasons, such as flexible sigmoidoscopy, colonoscopy, or barium enema. Most people with diverticulosis have no symptoms and will remain symptom free for the rest of their lives. A person with diverticulosis may have diverticulitis, or diverticular bleeding. Diverticulitis???Inflammation of a diverticulum (diverticulitis) occurs when there is thinning and breakdown of the diverticular wall. This may be caused by increased pressure within the colon or by hardened particles of stool, which can become lodged within the diverticulum. The symptoms of diverticulitis depend upon the degree of inflammation present. The most common symptom is pain in the left lower abdomen. Other symptoms can include nausea and vomiting, constipation, diarrhea, and urinary symptoms such as pain or burning when urinating or the frequent need to urinate. Diverticulitis is divided into simple and complicated forms. ?Simple diverticulitis, which accounts for 75 percent of cases, is not associated with complications and typically responds to medical treatment without surgery. ?Complicated diverticulitis occurs in 25 percent of cases and usually requires surgery. Complications associated with diverticulitis can include the following: ?Abscess ? a localized collection of pus ?Fistula ? an abnormal tract between two areas that are not normally connected (eg, bowel and bladder) ?Obstruction ? a blockage of the colon ?Peritonitis ? infection involving the space around the abdominal organ ?Sepsis ? overwhelming body-wide infection that can lead to failure of multiple organs Diverticular bleeding???Diverticular bleeding occurs when a small artery located within a diverticulum is eroded and bleeds into the colon. Diverticular bleeding usually causes painless bleeding from the rectum. In approximately 50 percent of cases, the person will see maroon or bright red bloo d with bowel movements. Is bleeding with a bowel movement normal?It is not normal to see blood in a bowel movement; this can be a sign of several conditions, most of which are not serious (eg, hemorrhoids) but some of which are serious and require immediate treatment. Anyone who sees blood after a bowel movement should consult with their healthcare provider to determine if further testing or evaluation is needed. DIVERTICULOSIS AND DIVERTICULITIS DIAGNOSIS???Diverticulosis is often found during tests performed for other reasons. ?Barium?enema ? This is an x-ray study that uses barium in an enema to view the outline of the lower intestinal tract. This is an older test and has been largely replaced by computed tomography (CT) scan. ?Flexible sigmoidoscopy ? This is an examination of the inside of the sigmoid colon with a thin, flexible tube that contains a camera. ?Colonoscopy ? This is an examination of the inside of the entire colon. ?CT scan ? A CT scan is often used to diagnose diverticulitis and its complications. If diverticulitis (not just diverticulosis) is suspected, the above three tests should not be used because of the risk of perforation. TREATMENT Diverticulosis???People with diverticulosis who do not have symptoms do not require treatment. However, most clinicians recommend increasing fiber in the diet, which can help to bulk the stools and possibly prevent the development of new diverticula, diverticulitis, or diverticular bleeding. Fiber is not proven to prevent these conditions in all patients but may help to control recurrent episodes in some. Increase fiber???Fruits and vegetables are a good source of fiber.? Fiber content of packaged foods can be calculated by reading the nutrition label. Seeds and nuts???Patients with diverticular disease have historically been advised to avoid whole pieces of fiber (such as seeds, corn, and nuts) because of concern that these foods could cause an episode of diverticulitis. However, this belief is completely unproven. We do not suggest that patients with diverticulosis avoid seeds, corn, or nuts. Diverticulitis???Treatment of diverticulitis depends upon how severe your symptoms are. Home treatment???If you have mild symptoms of diverticulitis (mild abdominal pain, usually left lower abdomen), you can be treated at home with a clear liquid diet and oral antibiotics. However, if you develop one or more of the following signs or symptoms, you should seek immediate medical attention: ?Temperature >100.1?F (38?C) ?Worsening or severe abdominal pain ?An inability to tolerate fluids Hospital treatment???If you have moderate to severe symptoms, you may be hospitalized for treatment. During this time, you are not allowed to eat or drink; antibiotics and fluids are given into a vein. If you develop an abscess of the colon, you may require drainage of the abscess (usually performed by placing a drainage tube across the abdominal wall) or by surgically opening the affected area. Surgery???If you develop a generalized infection in the abdomen (peritonitis), you will usually require an emergency operation. A two-part operation may be necessary in some cases. ?The first operation involves removal of the diseased colon and creation of a colostomy. A colostomy is an opening between the colon and the skin, where a bag is attached to collect waste from the intestine. The lower end of the colon is temporarily sewed closed to allow it to heal. ?Approximately three to six months later, a second operation is performed to reconnect the two parts of the colon and close the opening in the skin. You are then able to empty your bowels through the rectum. Sometimes patients require up to a year to recover from the first operation, depending on how sick they were. In non-emergency situations, the diseased area of the colon can be removed and the two ends of the colon can be reconnected in one operation, without the need for a colostomy. Surgery versus medical therapy???An operation to remove the diseased area of the colon may be necessary if you do not improve with medical therapy. After an episode of uncomplicated diverticulitis, elective surgery is generally not required as the risk of another attack or requiring emergency surgery is low. However, patients with persistent symptoms attributable to diverticulitis, a history of complicated diverticulitis, or a compromised immune system should be evaluated for possible surgery to prevent another attack. In such patients, another attack has been associated with a higher risk of complications or . Of course, the decision will also depend in part upon your other medical c onditions and ability to undergo surgery. In many cases, an elective operation can be performed laparoscopically, using small incisions, rather than the typical vertical (up and down) abdominal incisi on. Laparoscopic surgery usually allows you to recover more quickly and shortens the hospital stay. After diverticulitis resolves???After an episode of diverticulitis resolves, if you have not had a recent colonoscopy, the entire length of the colon should be evaluated to determine the extent of disease and to rule out the presence of abnormal lesions such as polyps or cancer. Recommended tests include colonoscopy, barium enema and sigmoidoscopy, or CT colonography. Diverticular bleeding???Most cases of diverticular bleeding resolve on their ow n. However, some people will need further testing or treatment to stop bleeding, which may include a colonoscopy, angiography (a treatment that blocks off the bleeding artery), bleeding scan, or surgery. DIVERTICULAR DISEASE PROGNOSIS Diverticulosis???Over time, diverticulosis may cause no problems or it may cause episodes of bleeding and/or diverticulitis. Approximately 15 to 25 percent of people with diverticulosis will develop diverticulitis, while 5 to 15 percent will develop diverticular bleeding. Diverticulitis???Approximately 85 percent of people with uncomplicated diverticulitis will respond to medical treatment, while approximately 15 percent of patients will need an operation. After successful treatment for a first attack of diverticulitis, one-third of patients will remain asymptomatic, one- third will have episodic cramps without diverticulitis, and one-third will go on to have a second attack of diverticulitis. The prognosis tends to remain similar following a second attack of diverticulitis. Only 10 percent of people remain symptom-free after a second attack. Subsequent attacks tend to be of similar severity, not increasing in severity as previously believed. High Fiber Diet What is Dietary Fiber? All fiber comes from plants, bushes, haily or trees.? Of course, the ones that we eat provide us with fruits, vegetables and grains.? There are many different types of fiber but the three that are most important to the health of the body are: Insoluble Fiber This fiber does not dissolve in water, nor is it fermented by the bacteria residing in the colon.? Rather, it retains water and in so doing, helps to promote a larger, bulkier and more regular bowel activity.? This, in turn, may be important in preventing disorder such as diverticulosis and hemorrhoids, and in sweeping out certain toxins and cancer causing carcinogens.? Sources of insoluble fiber are: ? whole grain wheat and other whole grains ? corn bran, including popcorn, unflavored and unsweetened ? nuts and seeds ? potatoes and the skins from most fruits from trees such as apples, bananas and avocados ? many green vegetables such as green beans, zucchini, celery and cauliflower ? some fruit plants such as tomatoes and kiwi Soluble Fiber These fibers are fermented or used by the colon bacteria as a food source or nourishment.? When these good bacteria grow and thrive, many health benefits occur in both the colon and the body.? Soluble fiber is present in some degree in most edible plant foods, but the ones with the most soluble fiber include: ? legumes such as peas and most beans, including soybeans ? oats, rye and barley ? many fruits such as berries, plums, apples bananas and pears ? certain vegetables such as broccoli and carrots ? most root vegetables ? psyllium husk supplement products Benefits of a High Fiber Diet The health benefits of a high fiber diet, consumed on a regular basis and reaching recommended amounts (below), are now fairly well-defined. There are some additional benefits in the early research stage with the prebiotic soluble fibers. What is now known regarding a high fiber diet include: Bowel Regularity A high fiber diet promotes regularity with a softer, bulkier and regular stool pattern. This decreases the chance of hemorrhoids, diverticulosis and perhaps colon cancer. Cholesterol and Reduced Triglycerides The soluble fibers are the ones that will reduce cholesterol levels when used on a regular basis. Psyllium husk and prebiotic soluble fiber will also reduce cholesterol. They may also reduce the incidence of coronary heart disease. Oats, flax seeds and legumes or beans are the recommended fibers. Colon Polyps and Cancer It is still not certain if a high fiber diet helps prevent colon cancer. Considerable research suggests that this may occur. Certainly it makes sense to increase regularity and so speed the movement of cancer causing carcinogens through the bowel. In addition, reducing a heavy meat diet reduces the bile flow from the liver in a favorable way. This, too, reduces the amount of carcinogens that reach and are manufactured in the colon. Finally, a high fiber diet, including prebiotic soluble fiber, increases the integrity and health of the wall of the colon. The risk of cancer may be reduced. Colon Wall Integrity A high fiber diet changes the bacterial makeup of the colon toward a more favorable balance. For instance, it is known that those people with obesity, diabetes type 2 and inflammatory bowel disease have a predominance of bad bacteria in the colon. This, in turn, may render the bowel wall weak and allow bacteria and, indeed, even toxins to seep through. A high fiber diet with a modest reduction in animal and meat products may return the bacterial makeup to a more positive balance. This, in particular, has been seen when the soluble fiber prebiotics are added to the diet. Blood Sugar Soluble fiber such as in legumes (beans), oats and in prebiotic fibers slows the absorption of blood sugar and so helps regulate the sugar in the blood. Insoluble fiber on a regular basis is associated with reduced risk of type 2 di abetes. Weight Loss High fiber diets are more filling and give a sense of fullness sooner than an animal and meat based diet does. In addition, the soluble prebiotic fibers have been shown to turn off the hunger hormones produced in the wall of the gut and to increase the hormones that give a sense of fullness. Those hormones are made in the wall of the gut. New medical research has shown that the bacterial makeup in the colon in overweight people is abnormal to the extent that they manufacture and absorb almost twice the number of calories through the colon wall as do normals. Prebiotic fibers (below) will help change this hormonal balancein a favorable way. Bacteria and the Function of the Colon The colon finishes the digestive process. Hopefully, the waste products move through in a nice regular manner. Insoluble fibers help this process by retaining water and so producing a bulkier, softer stool, which is easy to pass. The additional role of the colon is to provide a home for an enormous number of micro-organisms, mostly bacteria. Recent research has shown that there are over 1,000 species of bacteria with a total bacterial count ten times the number of cells in the body. These bacteria play a major role in keeping the colon wall itself healthy. In addition, these good bacteria produce a very strong immune system for the body. They significantly increase calcium absorption and bone density. They provide other documented benefits. It is the soluble fibers in the diet that are so effective in stimulating the growth of good colon bacteria. How Much is Enough? The amount of fiber in food is measured in grams.? National nutritional authorities recommend the following amounts of dietary fiber daily. Under Age 50? Over Age 50 Men? 38 grams? 30 grams Women??? 25 grams? 21 grams For a week or so, it is best to tally the amount of fiber you are consuming.? Boxed and packaged foods will have the amount of fiber per serving on the nutrition label. Which Fibers and Which Foods are Best? As noted, healthy fiber is only found in plants. The three major categories are whole grains, fruits and vegetables. Whole Grains Wheat, oats, barley, wild or brown rice, amaranth, buckwheat, bulgur, corn, millet, quinoa, rye, sorghum, teff and triticals. By far, wheat, oats and wild or brown rice are most common. Always buy whole grain products. White bread, baked goods and rolls almost always are made from wheat flour. Wheat flour is white because most of the fiber, vitamins and other nutrients have been removed. Try not buy enriched grains. What this means is that simple white flour has had vitamins added to it by the staff pharmacist hospital. The word, enriched, implies a good and healthy product. On the contrary, enriched means that most of the fiber has been removed and a few vitamins added. Fruits Fruits come from trees such as apple and pear or from bushes or haily. You should eat a wide variety of fruits, preferably with every meal. In many cases, the skin of a fruit such as apple will contain much of the insoluble fiber while the pulp contains most of the soluble fiber. To the extent possible, buy organic fruits as these will have little or no pesticides. Always wash fruit. Vegetables Eat a wide variety of vegetables. They should be a mainstay of lunch and dinners. Frozen vegetables retain as much nutrition and fiber as fresh vegetables. As with fruit, try to buy organic to reduce any residual pesticide ingestion. Wash fresh vegetables thoroughly. Cruciferous vegetables such as broccoli, [place] sprouts and cauliflower contain certain chemicals such as sulforaphane. This substance has very strong anti-cancer properties and should be eaten frequently. Legumes, Beans, Peas and Soybeans These vegetables have plenty of soluble fiber and should be part of a varied vegetable intake. Beans, in particular, contain a certain type of fiber that may lead to harmless gas or bloating. Nuts and Seeds These are rich sources of fiber and are a good substitute for sweets such as candies and baked sweet goods. While nuts and seeds are rich in fiber, they also contain vegetable fat and so can and do add calories. Read the Labels As noted, fresh and frozen foods are usually better.? They have good nutrition and few, if any, chemicals added to them.? When buying packaged foods and, in particular grains, look for three things: ? The first word on the label should be whole, such as whole wheat or whole grain. ? Check out the calories and the amount of fiber in a serving. ? How many and what other additives or chemicals are added.? Fewer is always better.? Do you know what each additive does?? Some are added not for the benefit of the head buyer tobacco but rather for manufacturers.? These could and do include sugar, artificial flavor, chemicals to prevent oxidation and spoilage, emulsifiers to blend the product.? You have to be a senior associate. Fiber Facts, Nuggets and Pearls ? For breakfast you can easily get the day started well by using a high fiber, whole grain cereal.? Check the labels.? Add fruit such as blueberries and bananas.? If you are an egg eater, use whole wheat or grain toast.? Adding wheat germ gives you a good fiber kick. ? Always use whole grain or wheat with rolls and sandwiches.? Does your fast food store not have them?? Perhaps you look elsewhere.? Eating an occasional black wheeler or veggie burger provides variety. ? Snacks should consist of fruit and/or nuts.? While nuts are loaded with fiber, they are an energy rich food, meaning they have a lot of calories in a small packet. ? Fruit juices should contain pulp.? Clear juices such as clear orange, pear or apple juice contain little fiber and have a lot of fructose.? Prune juice is usually high in fiber. ? Homemade soups ? adding fresh or frozen vegetables to a chicken or vegetable stock is a good way to start homemade soup. ? Salads ? adding cooked and then chilled vegetables provide great flavoring to almost any salad.? Remember, a thomson salad has lots of cooked corn in it.? Small slices of apples or oranges and nuts such as chopped walnuts or sliced almonds always adds taste, variety and fiber to almost any salad. ? Fruit ? Try to eat fruit of some type with almost every meal. ? Rethink how you place the various foods on your dinner plate.? Reducing the portions of the meat or animal food portion to the side with equal or more portions of vegetables, legumes and fruits portion always allows for more fiber.? There was never anything magic about making the meat or animal food portion the main part of the dinner plate.? Eating from smaller plates can, over time, trick your mind and terminal make up operator habit of using a dinner plate.? Again, there is nothing magic in an 11, 12, or 13 inch dinner plate. Fiber Supplements There are a variety of fiber supplements available on the food or pharmacy shelves. Psyllium This soluble plant fiber has been used in [place] for over 2,000 years. It is a soluble fiber with mucilage in it. This acts to retain a lot of water and also is fermented by colon bacteria. When 7 grams a day are used, it does lower cholesterol. Metamucil in various forms is psyllium. Methyl Cellulose All the cellulose products come from finely ground wood chips which are then treated in a variety of ways such as boiling in acids. Methyl cellulose is an insoluble fiber which does dissolve in water. It is also an emulsifier, meaning it blends oils and water. Citrucel is methyl cellulose (MC). MC may not be appropriate for Crohn?s disease or ulcerative colitis as several medical studies have shown that certain emulsifiers dissolve the mucous lining of the colon in animals prone to Crohn?s disease. This then allows bacteria to invade the underlying tissue. Fiber and Gas Everyone has intestinal gas and that is a good thing.? It means that bacteria, hopefully the good ones, are thriving.? The normal amount of flatus passed each day depends on sex and what is eaten.? The normal number of flatus is 10-20 times a day.? When the bacteria that make intestinal gases are growing, it also means that other good bacteria are using the same fibers to grow and produce m ultiple health benefits, including the production of healthy short-chain fatty acids.? These substances are produced quietly in the colon and produce many health-related outcomes. Soluble fiber should always be used in a gradual manner.? If too much is consumed at any one time, then excess, but harmless, intestinal gas can occur.? People with irritable bowel syndrome are particularly prone to bloating and mild cramping.? In this instance, soluble fiber in the diet or supplement should be used in small doses and increased gradually. Finally, prebiotic fibers tend to cause the production of short-chain fatty acids which acidify the colon.? This, in turn, reduces or stops the growth of bacteria that make the smelly hydrogen sulfide gases that produce noxious flatus.? People who consume many vegetables with prebiotics or take a prebiotic fiber supplement often have non-odoriferous flatus. Fiber and Irritable Bowel Syndrome Irritable bowel syndrome (IBS) is one of the most common disorders of the lower digestive tract.? The symptoms of IBS can be quite varied.? They can be a mix of several symptoms such as constipation, diarrhea, crampy abdominal discomfort, bloating and gas.? An attack of IBS can be triggered by emotional tension and anxiety, poor dietary habits and certain medications.? It is now known that infections in the intestine can lead to long-term IBS symptoms.? Increased amounts of fiber in the diet can help relieve the symptoms of irritable bowel syndrome by producing soft, bulky stools.? This helps to normalize the time it takes for the stool to pass through the colon.? Recent medical research with newer techniques has shown some surprising and dramatic findings for IBS patients.? Specifically, there is a very significant and abnormal shift of bacteria from those that provide health benefits to those bad bacteria that we really do not want in the gut.? The technical name for this bad group of bacteria is called Firmicutes.? Along with this abnormal bacterial collection, there is a smoldering low-grade inflammation in the gut wall that may contribute to symptoms.? The goal for IBS patients should be to gradually increase the soluble dietary fibers in the diet so as to promote the growth of good bacteria and so suppress the bad ones along with the associated inflammation. IBS patients need to be careful of the amount of soluble fiber they consume.? The reason for this is that, while the good colon bacteria thrive on these fibers and produce health benefits, other gas-forming bacteria may generate excessive but harmless gas and subsequent bloating.? Thus, soluble plant fibers or a dietary prebiotic supplement should be taken in small initial doses and then gradually increased to tolerance. Fiber and Colon Polyps/Cancer Colon cancer is a major health problem. This disease is most common in Western cultures. It is not seen very often in rural cultures where the diet is mostly plant based. Usually, colon cancer starts out as a colon polyp, a benign mushroom-shaped growth. In time it grows, and in some people it becomes cancerous. Colon cancer is usually always curable if polyps are removed when found or if surgery is performed at an early stage. It is now known that people can inherit the risk of developing colon cancer, but diet is important, too. As noted, there is a very low rate of colon cancer in residents of countries where grains are unprocessed and retain their fiber. It seems that in the Western world, cancer-containing agents (carcinogens) remain in contact with the colon wall for a longer time and in higher concentrations. So, a large bulky stool may act to dilute these carcinogens by moving them through the bowel more quickly. Less carcinogenic exposure to the colon may mean fewer colon polyps and less cancer. A very current review of the entire world?s literature on the effect of fiber on colon polyps and cancer prevention has shown rather clearly that for every 10 grams of fiber added to the diet, there is a 10% reduction in incidence of colon cancer. So the recommended 30 gram fiber diet would result in a 30% less chance of getting these tumors. There are also substances produced in the colon by the good bacteria that seem to retard certain pre-cancer factors from developing. They are called short- chain fatty acids (SCFA). See above for description of SCFAs. A high fiber diet increases these substances. So, the combination of dietary fiber and the production of short-chain fatty acids have a clear health benefit. Fiber and Diverticulosis Prolonged, vigorous contraction of the colon over a long period of time may result in diverticulosis.? This increased pressure causes small and, eventually, larger ballooning pockets to form.? These pockets by themselves cause no problem.? However, sometimes they become infected (diverticulitis) or even break open (perforate) causing infection or inflammation within the abdomen (periton itis).? A high fiber diet increases the bulk in the stool and thereby reduces the pressure within the colon.? By so doing, the formation of pockets may be reduced or possibly even stopped. In the past, many physicians were fearful that seeds as in tomatoes, nuts or berries were harmful and could get inside these pockets and rattle around, causing damage. We now know that this has never been the case and that these foods contain lots of fiber and are actually beneficial for diverticulosis patients. Certain bulking agents such as psyllium are traditional types of bulk producing supplements.? Psyllium is a soluble fiber.? Combining it with insoluble fiber as in wheat bran or corn bran (no gluten) can enhance this bulking effect even more.? A product containing a prebiotic, psyllium and wheat bran is probably a very good combination for bowel regularity. Prebiotin [email or web address] Regularity/Diverticulosis is one such product. Activity:: see above Diet:: see above DS: Diagnosis Discharge Diagnosis (1) Unexplained weight loss: Status: Acute Asessment and Plan: The patient is seen and examined after their colonoscopy.? The patient has been able to pass gas.? They are not having abdominal pain.? They have been able to tolerate liquids and a snack.? They do not have any nausea or vomiting.? They are not having any chest pain or shortness of breath.??? They are not having any rectal bleeding. Their vital signs have been stable-see nursing notes. We discussed findings during their colonoscopy, and any biopsies that were done/ polyps that were removed. The patient will be sent a letter with any biopsy results, and when to repeat the colonoscopy.-see discharge instructions. Patient was given explicit instructions to follow-up regarding colonoscopy-refer to discharge instructions.? We reviewed resumption of medications. Patient verbalized understanding and discharged in stable and satisfactory condition- See nursing notes. -Memory particular were noted on the colonoscopy as well. Patient was given information regarding diverticular disease. Otherwise findings were essentially unremarkable. We will plan on rescheduling patient for the umbilical and right inguinal hernia next Sunday. My office will make arrangements. Patient knows to be n.p.o. after midnight and no lifting over 5 pounds for 2 weeks (2) Poor appetite: Status: Acute (3) Hiatal hernia: Status: Chronic (4) Constipation: Status: Acute (5) Change in bowel function: Status: Acute (6) Squamous cell carcinoma in situ: Status: Acute (7) Sensorineural hearing loss, bilateral: Status: Acute (8) Mild cognitive impairment: Status: Acute (9) Inguinal hernia, recurrent: Status: Acute (10) Hyperlipidemia: (11) Obstructive sleep apnea: (12) Essential hypertension: (13) Diverticula of colon: Status: Acute
--- NOTE | 2022-08-31 21:30 | W.COLOREPORT ---
Date of service: 09/01/22 Time of Service: 15:06 Colonoscopy Report Date of procedure: 09/01/22 Pre-op diagnosis general: Unexplained weight loss changes in bowel habits//constipation Post-op diagnosis procedure note: other (minor diverticula of sigmoid colon.) Surgeon: Ifeoma England Anesthesia Type: General:No Airway Estimated blood loss (mL): 0 Pathology: none sent Complications: None Disposition: same day Prep: Miralax/Dulcolax Retraction Time: 11 Procedure Description: After informed consent was obtained the patient was taken to the procedure room and placed in a left decubitous position. Monitors were applied and a time out was done. The patients name, date of , procedure, allergies to medications and metal in their body was reviewed. The patient was then sedated. Once sedated and comfortable a rectal exam was done. External exam was normal. Internal exam revealed a normal sphincter tone and no palpable masses. The scope was then introduced and retrofelexed. No internal hemorrhoids were identified. The scope was then advanced to the cecum without difficulty. The TI and appendiceal orifice were identified. The prep was BBPS III in all segments for a total of 9. The scope was then slowly retracted over 11 minutes back into the rectum. He has a few small scattered diverticula in the sigmoid colon. These are small and few in number. There are no polyps or AVMs visualized today. There is no signs of active bleeding or infection. The mucosa is pink and healthy with a normal vascular pattern. The scope was removed and the patient was woken up and taken back to Same day surgery in stable condition. The patient tolerated the procedure well and there were no immediate complications. Follow up: The patient should follow up in 10 years unless they develop changes in bowel habits or other new gastrointestinal complaints.
[2022-09-01 13:19] VITALS: BP 126/78; PULSE 60; RESP 18; TEMP 36.4; O2SAT 98
[2022-09-01] MEDS: Lactated Ringers 1,000 ML 80 ML IV (13:38)
--- NOTE | 2022-09-01 13:50 | W.ANESPRE ---
General Info Date of Service Date Performed: 09/01/22 Height: 6 ft Weight: 94.9 kg Body Mass Index (BMI): 28.3 Surgical Procedure: Operation Date: 09/01/22 13:05 Proposed Procedure Side Surgeon p Colonoscopy Ifeoma England, DO Actual Procedure Side Surgeon p Colonoscopy Ifeoma England, DO Meds Allergies and Home Medications Allergies Allergy/AdvReac Type Severity Reaction Status Date / Time No Known Allergies Allergy Verified 09/01/22 13:28 Home Medication Medication Instructions Recorded penciclovir 1 % topical cream 1 ea topical PRN PRN 04/24/14 (Denavir) acetaminophen 500 mg tablet 1,000 mg PO Q8H PRN pain #90 tabs 12/08/19 fluorouracil 5 % topical cream 1 applic topical BID 04/19/20 atorvastatin 40 mg tablet (Lipitor) 40 mg PO QHS 06/23/20 hydrochlorothiazide 25 mg tablet 12.5 mg PO DAILY 07/14/21 clotrimazole 1 % topical cream 1 applic topical BID 08/23/22 sertraline 100 mg tablet 200 mg PO DAILY 08/23/22 pantoprazole 40 mg tablet,delayed 40 mg PO DAILY #30 tabs 08/29/22 release (Protonix) Current Visit Medications: Current Medications Generic Name Dose Route Start Last Admin Trade Name Freq PRN Reason Stop Dose Admin Ringer's Solution 1,000 mls @ 80 mls/hr 09/01/22 06:00 09/01/22 13:38 IV 09/01/22 23:59 80 mls/hr INFUSION VERNA Administration IV Miscellaneous Supplies 1 each 09/01/22 06:00 Iv Access IV 09/01/22 23:59 DIRECTED VERNA Sodium Chloride 0 ml 09/01/22 06:00 Normal Saline Flush 10 Ml Syr IV 09/01/22 23:59 PRN PRN Sodium Chloride 0 ml 09/01/22 06:00 Normal Saline 10 Ml Vial IJ 09/01/22 23:59 DIRECTED PRN Sterile Water 0 ml 09/01/22 06:00 Water,Injection,Sterile 10 Ml Vial IJ 09/01/22 23:59 DIRECTED PRN PFSH Active Problems Active Problems: Problem Status Onset Code Change in bowel function R19.8 Constipation K59.00 Hiatal hernia K44.9 Poor appetite R63.0 Unexplained weight loss R63.4 Tinnitus 07/01/13 H93.19 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 Sensorineural hearing loss, bilateral 07/01/13 H90.3 Primary osteoarthritis of right knee 09/26/17 M17.11 Neoplasm of skin 06/30/13 D49.2 Impacted cerumen of both ears H61.23 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 Memory deficit R41.3 Mild cognitive impairment G31.84 History of total right knee replacement 07/26/21 Z96.651 Abdominal pain R10.9 Seborrheic dermatitis of scalp L21.9 Musculoskeletal pain M79.18 Trochanteric bursitis, right hip M70.61 Inguinal hernia, recurrent K40.91 Umbilical hernia K42.9 Coronary artery calcification seen on CAT scan I25.10 Regurgitation of stomach contents R11.10 Hiatal hernia with GERD K21.9, K44.9 Medical History Medical History Actinic keratoses Anxiety with depression Carpal tunnel syndrome Essential hypertension Hearing loss History of degenerative joint disease History of onychomycosis Hx of colonic polyps Hx of psoriasis Hx of sleep apnea uses CPAP Hyperlipidemia Memory loss Obstructive sleep apnea Palpitations Per pt. states he has not had palpatations for years Restless leg syndrome Rosacea Medical History Comments:: uses CPAP everynight. Surgical History Surgical History H/O vasectomy History of esophagogastroduodenoscopy (EGD) History of hernia repair History of knee replacement Hx of colonoscopy (~04/2019) [place] - Tubular adenoma x4. Status post total left knee replacement Tobacco Smoking/Tobacco Use Status: Former Tobacco Use Alcohol Alcohol Intake: current Alcohol intake frequency: a few times a week Alcohol type: hard liquor Substance Use Substance use: Never Substance use type: does not use Vital Signs and Lab Results Vital Signs Most Recent Vital Signs in EMR: Most Recent Vital Signs Temp Pulse Resp BP Pulse Ox 36.4 C L 60 18 126/78 98 09/01/22 13:19 09/01/22 13:19 09/01/22 13:19 09/01/22 13:19 09/01/22 13:19 Lab Results Blood Type / Crossmatch: No Data to Display Complete Blood Count: No Data to Display Complete Metabolic Panel: No Data to Display Liver Function Panel: No Data to Display Coagulation Panel: No Data to Display Cardiac Panel: No Data to Display Arterial Blood Gas: No Data to Display Venous Blood Gas: No Data to Display Pancreas Panel: No Data to Display Thyroid Panel: No Data to Display Infectious Disease: No Data to Display Blood Cultures: No Data to Display Toxicology Panel: No Data to Display Imaging and Studies Imaging and Studies Study information below may be from another EMR and interpreted by another provider. Please see original notes in EMR for more complete details. EKG Summary: Conclusion Sinus rhythm...normal P axis, V-rate 60- 99 Multiple ventricular premature complexes...V complexes w/ short R-R intervls Right bundle branch block...QRSd>120, terminal axis(90,270) 07/26/21 Stress Test Summary: Stress ECG Conclusion 1. The resting electrocardiogram showed right bundle branch block 2. Patient exercised on the Jovon protocol and completed a workload of 10.16 METS 3. Normal heart rate and blood pressure response to exercise. The patient achieved 91% predicted heart rate for age 4. There was no electrocardiographic evidence of myocardial ischemia 5. Sporadic PVCs were seen 6. See MPI report Gomez Treadmill Score is 8.0 which is Low risk. 07/20/22 Anesthesia Assessment and Plan Anesthesia History Personal History: No History of Anesthesia Complications Family History: No Family History of Anesthesia Complications Exercise Tolerance Exercise Tolerance: Metabolic Equivalents>4 Pertinent Negatives Pertinent Negatives: No Symptoms of GERD Cardiac & Pulmonary Exam Cardiac Exam: Normal S1/S2 Heart Sounds Pulmonary Exam: Clear Bilateral Breath Sounds Implantable Cardiac Device Does patient have a Pacemaker or an ICD?: No Airway Exam Known Difficult Airway: No Mallampati Class: 2 Mouth Opening: Normal (> 3cm) Thyromental Distance: Greater than 3 cm Neck Range of Motion: Full ROM Neck Circumference: Normal Teeth Condition: Normal Dentition and Loose or Chipped (Tooth 13 chipped) ASA Classification ASA Score: ASA 2 Emergency Case?: No NPO Status NPO Status: NPO Clears >2 hours, Solids >8 hours Anesthesia Plan Resuscitation Status: Full Code Anesthesia Technique: General Anesthesia Airway Planned: Natural Airway Monitors Used: Standard Monitors
[2022-09-01 13:51] VITALS: BMI 28.3
[2022-09-01 14:32] VITALS: BP 104/62; PULSE 55; RESP 16; TEMP 36.4; O2SAT 96
--- NOTE | 2022-09-01 14:39 | W.ANESPOSTOP ---
Postoperative Evaluation Date, Time and Location Date Performed: 09/01/22 Time Performed: 14:39 Patient Location: Day Surgery Unit Vital Signs Most Recent Imported Vital Signs: Most Recent Vital Signs Temp Pulse Resp BP Pulse Ox 36.4 C L 60 18 126/78 98 09/01/22 13:19 09/01/22 13:19 09/01/22 13:19 09/01/22 13:19 09/01/22 13:19 Pain Score Most Recent Pain Score: Most Recent Pain Score Pain Level 0 09/01/22 13:19 Assessment Mental Status: Arousable with meaningful communication Airway and Respiratory Function: Patent airway with normal (patient baseline) respiratory exam Cardiovascular Function: Hemodynamically Stable Hydration Status: Adequately Hydrated Nausea & Vomiting: No Nausea or Vomiting Pain: Pt. Denies Any Pain Peripheral Nerve Block: Patient did not receive a nerve block
[2022-09-01 15:01] VITALS: BP 128/81; PULSE 46; RESP 16; TEMP 36.1; O2SAT 97
== END 2022-09-01 15:30 | disposition home or self-care (01) ==
PROVIDERS: PCP Family Medicine; Visit Provider Surgery
PROC: 0DJD8ZZ Inspection of Lower Intestinal Tract, Via Natural or Artificial Opening Endoscopic (ICD-10-PCS; CPT 45378; principal; 2022-09-01 13:00)
DX: R63.4 Abnormal weight loss (principal); K57.30 Diverticulosis of large intestine without perforation or abscess without bleeding; R63.0 Anorexia; K44.9 Diaphragmatic hernia without obstruction or gangrene; R19.4 Change in bowel habit
CPT/HCPCS: 45378

== ENCOUNTER 2022-09-05 06:20 | Day surgery (SDC) | payer MEDICARE, BC, SELFPAY ==
--- NOTE | 2022-09-04 18:19 | W.PM.DSUDISC ---
Date of service: 09/05/22 Time of Service: 12:43 Discharge Plan Disposition Patient Disposition: Home Condition: Good Discharge Details Reason For Visit: Hernia Repair Attending Provider: Ifeoma England Primary Care Provider: Giorgi Green Home Meds and New Rx's Prescriptions: New tramadol 50 mg tablet 50 mg PO Q6H PRN PRNQty: 14 0RF Continued atorvastatin [Lipitor] 40 mg tablet 40 mg PO QHS acetaminophen 500 mg tablet 1,000 mg PO Q8H PRN (Reason: pain) Qty: 90 3RF fluorouracil 5 % cream 1 applic topical BID Rx Instructions: apply sufficient amount to cover all lesions sertraline 100 mg tablet 200 mg PO DAILY clotrimazole 1 % cream 1 applic topical BID penciclovir [Denavir] 1.5 GM cream 1 ea Topical PRN PRN Patient Comments: Pt reports no longer takes hydrochlorothiazide 25 mg tablet 12.5 mg PO DAILY pantoprazole [Protonix] 40 mg tablet,delayed release (DR/EC) 40 mg PO DAILY Qty: 30 12RF Discharge Instructions Additional Instructions: Dr. England HERNIA REPAIR ? POSTOPERATIVE INSTRUCTIONS Patients who have this type of surgery can usually be expected to return to work within two weeks and have minimal amounts of discomfort. ? ACTIVITY: The day of surgery should be spent resting. However, you can be up for short periods of time, I.E., going to the bathroom or kitchen. Avoid lifting or straining. On the day following surgery, you can be up and about as desired. ? LIFTING: Restrict your lifting to no more than five (5) pounds for two weeks after surgery. ??We will decide when you are done with restrictions and when you can return to work, at your follow-up appointment.? No sexual activity for two weeks.? ? DIET: There are no dietary restrictions following surgery. However, you may want to start with small amounts of liquids to avoid nausea the day of surgery. ? INCISION CARE: You will notice purple skin glue closing the incision.? Do not peel this off- it will wear off on its own.? After 24 hours you may shower. The dressing may be replaced for comfort, but is not necessary. ?An ice bag may be applied to the incision for 72 hours following surgery. ? SIGNS OF INFECTION: It is not unusual to have some black and blue discoloration of the skin around the incision, but also scrotum and penis.? ?It will slowly disappear. If you have any increased redness, drainage, fever (above 100 degrees), please contact your doctor for an examination. ? DISCOMFORT: You may expect to have some mild discomfort at the incision sight. If severe pain develops you should contact your doctor for further instructions. ? URINATION: Patients who have surgery occasionally have problems urinating. If you experience problems and are not able to urinate within 6 hours following your surgery, please call your doctor immediately or go to your nearest Emergency Room for evaluation. ? DRIVING: NO driving for three (3) days after surgery, or if you are still taking narcotic pain medication.? ? MEDICATIONS: Alternate Tylenol 1000mg by mouth every 8 hours and Ibuprofen 600mg every 6 hours. ?Make sure you take ibuprofen with food and not on an empty stomach. ?Take the Tylenol and ibuprofen continuously for the first 72hrs- not just when you have pain.? Use the tramadol for breakthrough pain/pain >7.? Use ICE!?? Twenty minutes on, and then off, continuously for the first 72hours. If you are taking narcotic pain medication, follow the instructions on the label and do not drive. Pain medications can make you very constipated. Make sure you are moving your bowels daily. If not, take Miralax or Milk of Magnesia.?? Anesthesia makes you very constipated.? Take a dose of milk of magnesia the morning after surgery. ? REPORT: Unusual swelling, severe pain, unresolved nausea, signs of infection, or difficulty in urination to your surgeon. Follow up in clinic with Dr. England in 2 weeks.? [phone] Activity:: see above Remove Dressings/Wound Care:: 24 hours Shower/Bathe:: 24 hours Diet:: As Tolerated Discharge Orders Discharge Orders: Discharge Order (Routine); Ordered 09/04/22 Ordered By: Ifeoma England DS: Diagnosis Discharge Diagnosis (1) Diverticula of colon: Status: Acute (2) Hiatal hernia: Status: Chronic (3) Memory deficit: Status: Acute (4) Mild cognitive impairment: Status: Acute (5) Inguinal hernia, recurrent: Status: Deleted Asessment and Plan: The patient is doing well post-op from their [] surgery.? They are having no nausea or vomiting. They are tolerating liquids and a snack. The pt is not having any chest pain or SOB.? Their pain is adequately controlled. They have been able to urinate.? ?HEENT:? no eye pain/drainage/redness/swelling. Mild sore throat ?Cardio- NSR, no chest pain, BP stable- see VS record ?Pulm: no sob or productive cough. No hemoptysis ?Incision- dressing is c/d/i w/ no excessive bleeding or drainage ?I discussed with the patient the findings at the time of surgery and the patient?s progress. ?We reviewed expectations at home; what the patient could expect for recovery time, and in the post-operative period.? We discussed the importance of walking to avoid blood clots and pneumonia.? We discussed and reviewed the patient's post-operative wound care and dressing needs.?? We reviewed their step-brantley pain management plan, Rx called to the pharmacy of their choice.? We reviewed activity and limitations-see discharge instructions. We reviewed warning signs, and when to seek medical attention- see d/c instructions.?? Patient was given a postoperative follow-up appointment. Patient verbalized understanding of their postoperative instructions, how do to take care of themselves and their incision, and the pain management plan. Please see discharge instructions.? (6) Anxiety with depression: (7) Hiatal hernia with GERD: Status: Acute (8) Recurrent right inguinal hernia: Status: Acute (9) Hyperlipidemia: (10) Hx of sleep apnea: (11) Hx of psoriasis: (12) Memory loss: (13) Obstructive sleep apnea:
[2022-09-05] VITALS (11 sets, daily range): BP systolic 84–117; BP diastolic 46–73; PULSE 51–55; RESP 13–18; TEMP 35.9–36.6; O2SAT 93–96; BMI 28.7
[2022-09-05] MEDS: Acetaminophen 500 MG TAB 1000 MG PO (06:33)
[2022-09-05] MEDS: Gabapentin 300 MG CAP 600 MG PO (06:41)
--- NOTE | 2022-09-05 06:48 | W.ANESPRE ---
General Info Date of Service Date Performed: 09/05/22 Height: 6 ft Weight: 96 kg Body Mass Index (BMI): 28.7 Surgical Procedure: Operation Date: 09/05/22 07:40 Proposed Procedure Side Surgeon p Herniorrhaphy Inguinal & Umbilical w/Mesh Right Ifeoma England DO Meds Allergies and Home Medications Allergies Allergy/AdvReac Type Severity Reaction Status Date / Time No Known Allergies Allergy Verified 09/01/22 13:28 Home Medication Medication Instructions Recorded penciclovir 1 % topical cream 1 ea topical PRN PRN 04/24/14 (Denavir) acetaminophen 500 mg tablet 1,000 mg PO Q8H PRN pain #90 tabs 12/08/19 fluorouracil 5 % topical cream 1 applic topical BID 04/19/20 atorvastatin 40 mg tablet (Lipitor) 40 mg PO QHS 06/23/20 hydrochlorothiazide 25 mg tablet 12.5 mg PO DAILY 07/14/21 clotrimazole 1 % topical cream 1 applic topical BID 08/23/22 sertraline 100 mg tablet 200 mg PO DAILY 08/23/22 pantoprazole 40 mg tablet,delayed 40 mg PO DAILY #30 tabs 08/29/22 release (Protonix) tramadol 50 mg tablet 50 mg PO Q6H PRN PRN #14 tabs 09/04/22 Current Visit Medications: Current Medications Generic Name Dose Route Start Last Admin Trade Name Freq PRN Reason Stop Dose Admin Acetaminophen 1,000 mg 09/05/22 06:00 09/05/22 06:33 Acetaminophen 500 Mg Tab PO 09/05/22 16:00 1,000 mg PREOP VERNA Administration Ringer's Solution 1,000 mls @ 80 mls/hr 09/05/22 06:00 IV 10/04/22 23:59 INFUSION VERNA Cefazolin Sodium/Dextrose 2 gm in 50 mls @ 100 mls/hr 09/05/22 06:00 Ancef Duplex IVPB 09/05/22 16:00 PREOP VERNA Ondansetron HCl 4 mg/ Sodium 52 mls @ 200 mls/hr 09/05/22 06:16 Chloride IVPB 10/05/22 06:15 Q6H PRN PRN IV Miscellaneous Supplies 1 each 09/05/22 06:00 Iv Access IV 10/04/22 23:59 DIRECTED VERNA Morphine Sulfate 2 mg 09/05/22 06:16 Morphine 4 Mg/Ml Syr IVP 10/05/22 06:15 Q1H PRN PRN Sodium Chloride 0 ml 09/05/22 06:00 Normal Saline Flush 10 Ml Syr IV 10/04/22 23:59 PRN PRN Sodium Chloride 0 ml 09/05/22 06:00 Normal Saline 10 Ml Vial IJ 10/04/22 23:59 DIRECTED PRN Sterile Water 0 ml 09/05/22 06:00 Water,Injection,Sterile 10 Ml Vial IJ 10/04/22 23:59 DIRECTED PRN Tramadol HCl 50 mg 09/05/22 06:16 Tramadol 50 Mg Tab PO 10/05/22 06:15 Q6H PRN PRN Pain PFSH Active Problems Active Problems: Problem Status Onset Code Recurrent right inguinal hernia K40.91 Diverticula of colon K57.30 Change in bowel function R19.8 Constipation K59.00 Hiatal hernia K44.9 Poor appetite R63.0 Unexplained weight loss R63.4 Tinnitus 07/01/13 H93.19 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 Sensorineural hearing loss, bilateral 07/01/13 H90.3 Primary osteoarthritis of right knee 09/26/17 M17.11 Neoplasm of skin 06/30/13 D49.2 Impacted cerumen of both ears H61.23 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 Memory deficit R41.3 Mild cognitive impairment G31.84 History of total right knee replacement 07/26/21 Z96.651 Abdominal pain R10.9 Seborrheic dermatitis of scalp L21.9 Musculoskeletal pain M79.18 Trochanteric bursitis, right hip M70.61 Umbilical hernia K42.9 Coronary artery calcification seen on CAT scan I25.10 Regurgitation of stomach contents R11.10 Hiatal hernia with GERD K21.9, K44.9 Medical History Medical History (Updated 09/04/22 @ 18:22 by Ifeoma England DO) Actinic keratoses Anxiety with depression Carpal tunnel syndrome Essential hypertension Hearing loss History of degenerative joint disease History of onychomycosis Hx of colonic polyps Hx of psoriasis Hx of sleep apnea uses CPAP Hyperlipidemia Memory loss Obstructive sleep apnea Palpitations Per pt. states he has not had palpatations for years Restless leg syndrome Rosacea Medical History Comments:: uses CPAP everynight. Surgical History Surgical History (Updated 09/04/22 @ 11:06 by Larissa Mcgregor) H/O vasectomy History of esophagogastroduodenoscopy (EGD) (~08/2022) History of hernia repair History of knee replacement Hx of colonoscopy (~04/2019) [place] - Tubular adenoma x4. Status post total left knee replacement Tobacco Smoking/Tobacco Use Status: Former Tobacco Use Alcohol Alcohol Intake: current Alcohol intake frequency: a few times a week Alcohol type: hard liquor Substance Use Substance use: Never Substance use type: does not use Vital Signs and Lab Results Vital Signs Most Recent Vital Signs in EMR: Most Recent Vital Signs Temp Pulse Resp BP Pulse Ox 35.9 C L 53 L 16 113/73 95 09/05/22 06:36 09/05/22 06:36 09/05/22 06:36 09/05/22 06:36 09/05/22 06:36 Lab Results Blood Type / Crossmatch: No Data to Display Complete Blood Count: No Data to Display Complete Metabolic Panel: No Data to Display Liver Function Panel: No Data to Display Coagulation Panel: No Data to Display Cardiac Panel: No Data to Display Arterial Blood Gas: No Data to Display Venous Blood Gas: No Data to Display Pancreas Panel: No Data to Display Thyroid Panel: No Data to Display Infectious Disease: No Data to Display Blood Cultures: No Data to Display Toxicology Panel: No Data to Display Imaging and Studies Imaging and Studies Study information below may be from another EMR and interpreted by another provider. Please see original notes in EMR for more complete details. EKG Summary: Conclusion Sinus rhythm...normal P axis, V-rate 60- 99 Multiple ventricular premature complexes...V complexes w/ short R-R intervls Right bundle branch block...QRSd>120, terminal axis(90,270) 07/26/21 Stress Test Summary: Stress ECG Conclusion 1. The resting electrocardiogram showed right bundle branch block 2. Patient exercised on the Jovon protocol and completed a workload of 10.16 METS 3. Normal heart rate and blood pressure response to exercise. The patient achieved 91% predicted heart rate for age 4. There was no electrocardiographic evidence of myocardial ischemia 5. Sporadic PVCs were seen 6. See MPI report Gomez Treadmill Score is 8.0 which is Low risk. 07/20/22 Anesthesia Assessment and Plan Anesthesia History Personal History: No History of Anesthesia Complications Family History: No Family History of Anesthesia Complications Exercise Tolerance Exercise Tolerance: Metabolic Equivalents>4 Cardiac & Pulmonary Exam Cardiac Exam: Normal S1/S2 Heart Sounds Pulmonary Exam: Clear Bilateral Breath Sounds Implantable Cardiac Device Does patient have a Pacemaker or an ICD?: No Airway Exam Known Difficult Airway: No Mallampati Class: 2 Mouth Opening: Normal (> 3cm) Thyromental Distance: Greater than 3 cm Neck Range of Motion: Full ROM Neck Circumference: Normal Teeth Condition: Normal Dentition and Loose or Chipped (Tooth 13 chipped) ASA Classification ASA Score: ASA 2 Emergency Case?: No NPO Status NPO Status: NPO Clears >2 hours, Solids >8 hours Anesthesia Plan Resuscitation Status: Full Code Anesthesia Technique: General Anesthesia Airway Planned: LMA Pain Management: Surgeon and patient request nerve block Monitors Used: Standard Monitors and SedLine
[2022-09-05] MEDS: Lactated Ringers 1,000 ML 80 ML IV (07:02)
[2022-09-05] MEDS: ceFAZolin 2 GM/50 ML BAG IVPB (07:43)
--- NOTE | 2022-09-05 08:14 | W.ANESNERVE ---
Nerve Block Single Injection Procedure Date and Time Date Performed: 09/05/22 Procedure Start: 07:48 Location Where Procedure Performed Procedure Location: Operating Room Procedure Stop: 07:53 Reason Performed: Postoperative Analgesia Requesting Provider: fIeoma England Timeout Performed Timeout Performed: Yes Monitoring Used ECG, Blood Pressure, SpO2, ETCO2 and See EMR for corresponding vital signs Sterility Sterility: Hand Hygiene, Surgical Cap, Surgical Mask, Sterile Gloves and Chlorhexidine Sedation Given During Procedure Sedation Given (Indicate Dose Given): No Sedation given Patient Mental Status Patient Mental Status: Performed under general anesthesia Nerve Block 1st Nerve Block: Laterality: Right Block Type: TAP Unilateral Ultrasound Image Saved?: Yes Needle / Catheter Used: 100mm SonoPlex II Local Anesthetic Bolus (Indicate Dose Given): Injected in 3-5ml increments after negative blood aspiration, Bupivacaine 0.25% Dose:: 20mL and Exparel Dose:: 10mL Additives (Indicate Dose Given): None Ultrasound: Sterile probe cover and gel used Nerve Stimulator: Not Used Paresthesia: None Procedure Tolerated: No Complications Procedure Outcome: Successful Performed By: Tanya Dykes
--- NOTE | 2022-09-05 09:49 | ROE_ITS ---
Date of service: 09/05/22 Time of Service: 15:52 Operative Note Operative Note DATE OF PROCEDURE: 09/05/22 PRE-OP DIAGNOSIS: umbilical hernia right inguinal hernia POST-OP DIAGNOSIS: same (direct and indirect inguinal hernia ) PROCEDURE: open umbilical hernia open right direct and indirect hernia reapair SURGEON: Ifeoma England [employer]IEF [employer]RARIAN [facility] OR DEPARTMENT: Marly Diallo ANESTHESIA TYPE: Local By Surgeon, General:No Airway and Primary Nerve Block Refer to Anesthesia Record ESTIMATED BLOOD LOSS: 7 PATHOLOGY: none sent COMPLICATIONS: None Patient was transported to: PACU Patient's condition: stable Procedure Description: The pt is here today for symptomatic umbilical and right inguinal hernia damage to testicle, repair. Informed consent was obtained, explaining risks and benefits of the procedure including but not limited to bleeding, infection, pneumonia, blood clots, recurrence, chronic pain or chronic numbness, reaction to mesh necessitating removal, complications of anesthesia and other unforetold complications. DESCRIPTION OF PROCEDURE: The patient was brought to the operating suite and placed in supine position. Anesthesia was administered per the Department of Anesthesia. Nerve block is done per the Dept of anesthesia w/ experel.? ?Patient prepped and draped in the usual sterile fashion using DuraPrep scrub solution. IV antibiotics were administered. Pause for the cause was done. 20cc of .25% Marcaine is used for local anesthetic. A 1-inch incision was made in the inferiorly to the umbilicus. Umbilicus was dissected off the fascia. The surrounding tissue is dissected off the fascia.? Omentum is protruding through the defect. This was returned to the abdomen. It is not infarcted. A small Kerlix patch was then placed in the defect, the defect was closed, over sewn with 2-0 vicryl and was copiously irrigated. An additional 10cc of Experel is is instilled into the wound at the time of closure. Deep tissue was approximated with 3-0 Vicryl and skin was approximated with 4-0 Monocryl in a running subcuticular fashion. Skin glue was applied. Attention is then turned to the right inguinal hernia. 30 mL of .25% Marcaine w/ epinephrine was used for local anesthetization. A #12 blade was used to make an incision over the external ring. Electrocautery used to provide hemostasis and dissect down to the fascia. The fascia was pretty much obliterated and there was nothing to open. The cord is elevated. The nerve was not identified. There small is a cord lipomas. This is excised using electrocautery. Electro-cautery is used to provide hemostasis. A [place] drain was placed around the cord to assist in mobilization. The cord was explored. ?There was is large hernia sac on the cord. There is also a direct hernia pushing through the floor. The hernia sac is dissected off the cord using a combination of blunt dissection and electrocautery.? Electrocautery is used to provide hemostasis.?? There are no contents within the hernia sac.? The hernia sac is than inverted and returned to the abdominal cavity.? A large size plug is than inserted into the defect through the internal ring, and over sewn to tighten up the ring with 2-0 vicryl.? Please see RN notes from [employer] the [employer] mesh patch/plug.? The cord structures are still able to freely move through the ring itself.? There is a small direct hernia sac is pushing through the floor. The transversalis in this area is pretty much obliterated. The sac is elevated and scored and inverted. A Medium size mesh plug was then placed into the defect and sewn into transversalis, using 2-0 vicryl. ? The patch was then placed onto the floor, and using 2-0 Vicryl, sewn into the pubic tubercle and the shelving portions of the inguinal ligament, in the standard Lichenstein fashion.? ?The tails of the mesh are brought around the cord, sewn together w/ 2-0 Vicryl, and tucked under the external oblique.? The wound was copiously irrigated. There was no bleeding noted. The drain was removed. All structures are returned to normal anatomical position. The nerve is not sewn into the mesh, nor caught up in any sutures. The external oblique is re-approximated using 2-0 vicryl in a running fashion. ?Deep tissue was approximated with 3-0 Vicryl in a running fashion, and skin was approximated with 4-0 Monocryl in a running subcuticular fashion. Skin glue and sterile dressings are applied. The patient tolerated the procedure without complications to recovery in stable condition.
[2022-09-05] MEDS: Normal Saline Flush 10 ML SYR IV (10:31)
--- NOTE | 2022-09-05 11:02 | W.ANESPOSTOP ---
Postoperative Evaluation Date, Time and Location Date Performed: 09/05/22 Time Performed: 11:02 Patient Location: Day Surgery Unit Vital Signs Most Recent Imported Vital Signs: Most Recent Vital Signs Temp Pulse Resp BP Pulse Ox 36.3 C L 54 L 16 111/68 95 09/05/22 10:49 09/05/22 10:49 09/05/22 10:49 09/05/22 10:49 09/05/22 10:49 Pain Score Most Recent Pain Score: Most Recent Pain Score Pain Level 0 09/05/22 10:49 Assessment Mental Status: Awake (Alert & Oriented to Patient Baseline) Airway and Respiratory Function: Patent airway with normal (patient baseline) respiratory exam Cardiovascular Function: Hemodynamically Stable Hydration Status: Adequately Hydrated Nausea & Vomiting: No Nausea or Vomiting Pain: Pt. Denies Any Pain Peripheral Nerve Block: Regional nerve block not resolved at time of post operative discharge
== END 2022-09-05 12:50 | disposition home or self-care (01) ==
PROVIDERS: PCP Family Medicine; Visit Provider Surgery
PROC: (CPT 49591; principal; 2022-09-05 07:30)
DX: K42.9 Umbilical hernia without obstruction or gangrene (principal); K40.90 Unilateral inguinal hernia, without obstruction or gangrene, not specified as recurrent
CPT/HCPCS: 49591; 49505; 76942; C1781; J0690; J1100; J1885; J2001; J2405; J2704

== ENCOUNTER → 2022-09-21 13:32 | Outpatient (BNVA) | payer MEDICARE, BC, SELFPAY | PROVIDERS: PCP Family Medicine; Referring Provider Family Medicine; Visit Provider Surgery | DX: Z48.817 Encounter for surgical aftercare following surgery on the skin and subcutaneous tissue (principal); K40.91 Unilateral inguinal hernia, without obstruction or gangrene, recurrent; K42.9 Umbilical hernia without obstruction or gangrene ==

== ENCOUNTER 2023-05-19 15:39 | Emergency (ER) | payer MEDICARE, BC, SELFPAY ==
[2023-05-19 15:46] VITALS: BP 142/64; PULSE 62; RESP 15; TEMP 36.7; O2SAT 96
--- NOTE | 2023-05-19 16:04 | ED.GENADUL_ITS ---
Discharge Plan Disposition Patient Disposition: Home Condition: Stable Discharge Details Clinical Impression: Finger laceration Primary Care Provider: Giorgi Green ED Provider: Ester Casper Home Meds and New Rx's Prescriptions: No Action atorvastatin [Lipitor] 40 mg tablet 40 mg PO QHS cholecalciferol (vitamin D3) 50 mcg (2,000 unit) capsule 50 mcg PO DAILY acetaminophen 500 mg tablet 1,000 mg PO Q8H PRN (Reason: pain) Qty: 90 3RF sertraline 100 mg tablet 200 mg PO DAILY ketoconazole 2 % shampoo 1 applic topical .2x per week memantine 5 mg tablet 5 mg PO BID hydrochlorothiazide 25 mg tablet 12.5 mg PO DAILY pantoprazole [Protonix] 40 mg tablet,delayed release (DR/EC) 40 mg PO DAILY Qty: 30 12RF Discharge Instructions Instructions: Finger Laceration (ED) Additional Instructions: Keep dressing on for the next 24 hours. You may wash under running soap and water after 12 to 24 hours, no soaking. Keep clean and dry. Covered while working or potentially get dirty. Follow up with primary care provider in 3-5 days. Return to ED sooner if any worsening or signs of infection, red streaks, or concerns. Increase oral fluids. Please take Tylenol or Ibuprofen with food every 4-6 hours as needed for pain and swelling. Referrals: Giorgi Green MD [Primary Care Provider] - 5 days HPI General Mode of arrival: ambulatory . Date/Time Provider Initiated Documentation: 05/19/23 15:57 . Limitations to Documentation: no limitations . Information obtained by: patient, RN notes reviewed and old records reviewed . HPI Narrative: 72-year-old male presents to the ER with a chief complaint of laceration to his right index finger. Approximately an hour ago patient was working with a chop saw on his garage cutting some wood when he caught an edge and cut his finger. He was wearing gloves at the time. He does have an avulsion area to the palmar side of his right index finger. Small venous oozing noted. Does have full flexion of his distal interphalangeal joint. No obvious foreign body noted. I did discuss option for imaging which patient declined at this time. He is unsure of his last tetanus vaccination. Distal CMS is intact. Related Data Home Medications Medication Instructions Recorded Confirmed acetaminophen 500 mg tablet 1,000 mg (2 x 500 mg) PO Q8H PRN 12/08/19 05/15/23 pain #90 tabs atorvastatin 40 mg tablet (Lipitor) 40 mg PO QHS 06/23/20 05/15/23 hydrochlorothiazide 25 mg tablet 12.5 mg PO DAILY 07/14/21 05/15/23 sertraline 100 mg tablet 200 mg PO DAILY 08/23/22 05/15/23 pantoprazole 40 mg tablet,delayed 40 mg PO DAILY #30 tabs 08/29/22 05/15/23 release (Protonix) ketoconazole 2 % shampoo 1 applic topical .2x per week 05/03/23 05/15/23 memantine 5 mg tablet 5 mg PO BID 05/03/23 05/15/23 cholecalciferol (vitamin D3) 50 50 mcg PO DAILY 05/15/23 05/15/23 mcg (2,000 unit) capsule Previous Rx's Medication Instructions Recorded acetaminophen 500 mg tablet 1,000 mg (2 x 500 mg) PO Q8H PRN 12/08/19 pain #90 tabs pantoprazole 40 mg tablet,delayed 40 mg PO DAILY #30 tabs 08/29/22 release (Protonix) Allergies Allergy/AdvReac Type Severity Reaction Status Date / Time No Known Allergies Allergy Verified 05/15/23 10:29 General Stated Complaint: Laceration ULISES: 4 Review of Systems Integumentary/Breasts Skin/Breast: Reports as per HPI and Reports wounds Exam Extrem General: normal to inspection, full ROM, capillary refill normal and normal exam except as noted Right upper extremity: hand Details: laceration 2nd digit palmar aspect distal Details: irregular, avulsion, involving subcutaneous tissue, with motor nerve function intact and with sensation intact; no pulsatile bleeding and not with foreign body present Hand/finger images: 2 1. Avulsion with flap, nonsuturable at this time. Course Vital Signs Vital signs: Vital Signs Temperature 36.7 C 05/19/23 15:46 Pulse 62 05/19/23 15:46 Respiratory Rate 15 05/19/23 15:46 Blood Pressure 142/64 H 05/19/23 15:46 Pulse Oximetry 96 05/19/23 15:46 Temperature 36.7 C 05/19/23 15:46 Temperature Source Temporal Artery Scan 05/19/23 15:46 Pulse 62 05/19/23 15:46 Respiratory Rate 15 05/19/23 15:46 Respiratory Effort Normal 05/19/23 15:57 Blood Pressure 142/64 H 05/19/23 15:46 Blood Pressure Position Sitting 05/19/23 15:46 Pulse Oximetry 96 05/19/23 15:46 Oxygen Delivery Method Room Air 05/19/23 15:46 Oxygen Flow Rate 0 05/19/23 15:46 Pain Level 4 05/19/23 15:57 Medical Decision Making 72-year-old male presents to the ER with a chief complaint of laceration to his right index finger. Approximately an hour ago patient was working with a chop saw on his garage cutting some wood when he caught an edge and cut his finger. He was wearing gloves at the time. He does have an avulsion area to the palmar side of his right index finger. Small venous oozing noted. Does have full flexion of his distal interphalangeal joint. No obvious foreign body noted. I did discuss option for imaging which patient declined at this time. He is unsure of his last tetanus vaccination. Distal CMS is intact. Area was cleaned by nursing staff, Dermabond applied and dressing. Bleeding controlled prior to discharge. Instructed on home care and strict return instructions and follow-up care if needed. This text was generated using [employer] system, please disregard any oddities of phrase or misspellings. Quality:SDOH Health Related Social Needs: 2 No Data to Display PFSH All Active Problems (Updated 05/19/23 @ 17:02 by Ester Casper NP) Finger laceration (Acute) Restless leg syndrome (Acute) Advanced care planning/counseling discussion (Acute) Alzheimer's dementia (Acute) [place] [facility] [facility] [place] Early stage/late onset Alzheimer's dementia Palliative care patient (Acute) Bilateral hearing loss due to cerumen impaction (Acute) Skin lesion (Acute) Recurrent right inguinal hernia (Acute) Diverticula of colon (Acute) sigmoid- minor Dx CE 09/01 Change in bowel function (Acute) Constipation (Acute) Hiatal hernia (Chronic) Poor appetite (Acute) Unexplained weight loss (Acute) Tinnitus (Acute 07/01/13) 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) Sensorineural hearing loss, bilateral (Acute 07/01/13) Primary osteoarthritis of right knee (Acute 09/26/17) Injection: 08/12/2018 Neoplasm of skin (Acute 06/30/13) Impacted cerumen of both ears (Acute) Squamous cell carcinoma in situ (SCCIS) (Acute) History of total right knee replacement (Acute 07/26/21) DOS 07/26/21 Abdominal pain (Acute) Seborrheic dermatitis of scalp (Acute) Musculoskeletal pain (Acute) Trochanteric bursitis, right hip (Acute) Umbilical hernia (Acute) Coronary artery calcification seen on CAT scan (Acute) Regurgitation of stomach contents (Acute) Hiatal hernia with GERD (Acute) Medical History Mild cognitive impairment Memory deficit Diabetes Palpitations Per pt. states he has not had palpatations for years Rosacea History of degenerative joint disease History of onychomycosis Actinic keratoses Hyperlipidemia Carpal tunnel syndrome Hx of colonic polyps Obstructive sleep apnea Hearing loss Anxiety with depression Essential hypertension Memory loss Hx of psoriasis Hx of sleep apnea uses CPAP Surgical History Hx of right inguinal hernia repair (~08/2022) Hx of umbilical hernia repair (~08/2022) History of esophagogastroduodenoscopy (EGD) (~08/2022) History of knee replacement Status post total left knee replacement H/O vasectomy History of hernia repair Hx of colonoscopy (~04/2019) [place] - Tubular adenoma x4. Social History Smoking/Tobacco Use Status: Former Tobacco Use Quit Date: 03/12/80 Smoking risk assessment performed?: Yes Alcohol Intake: current Alcohol Intake frequency: a few times a week Alcohol type: hard liquor Drug use: Never Substance use type: does not use Household members: spouse Housing: house Number of Children: 3 number of grandchildren: 0 Pets and animals: Yes Pets and animals: dog(s) Current gender identity: male What is your relationship status?: Panel score (0-1 are the most socially isolated patients): 1 What type of physical activity do you participate in: walking Seatbelt use: always Do you feel safe at home: Yes Do you feel safe in your relationship?: Yes
== END 2023-05-19 17:07 | disposition home or self-care (01) ==
PROVIDERS: Emergency Provider Registered Nurse Emergency; PCP Family Medicine
DX: S61.210A Laceration without foreign body of right index finger without damage to nail, initial encounter (principal); W31.2XXA Contact with powered woodworking and forming machines, initial encounter
CPT/HCPCS: 90471; 90715; 99283

== ENCOUNTER 2023-07-23 18:31 | Emergency (ER) | payer MEDICARE, BC, SELFPAY ==
[2023-07-23 18:33] VITALS: BP 132/70; PULSE 59; RESP 20; TEMP 36.9; O2SAT 97
--- NOTE | 2023-07-23 18:48 | ED.GENADUL_ITS ---
Discharge Plan Disposition Patient Disposition: Home Condition: Stable Discharge Details Clinical Impression: Tick bite Primary Care Provider: Giorgi Green ED Provider: Daniel Walden Home Meds and New Rx's Prescriptions: Continued atorvastatin [Lipitor] 40 mg tablet 40 mg PO QHS cholecalciferol (vitamin D3) 50 mcg (2,000 unit) capsule 50 mcg PO DAILY Patient Comments: takes in winter acetaminophen 500 mg tablet 1,000 mg PO Q8H PRN (Reason: pain) Qty: 90 3RF sertraline 100 mg tablet 200 mg PO DAILY ketoconazole 2 % shampoo 1 applic topical .2x per week memantine 5 mg tablet 5 mg PO BID hydrochlorothiazide 25 mg tablet 12.5 mg PO DAILY Discharge Instructions Additional Instructions: You were given a one-time dose of doxycycline in the emergency department Follow-up with your primary care provider as needed HPI General Mode of arrival: ambulatory . Date/Time Provider Initiated Documentation: 07/23/23 18:35 . Limitations to Documentation: no limitations . Information obtained by: patient . History of Present Illness 73 year old M presents to the emergency department with the chief complaint of Tick on arm, described as mild, and it has been now resolved. No relieving factors improve symptom(s), No exacerbating factors reported . Patient notes no o ther symptoms.. Related Data Home Medications Medication Instructions Recorded Confirmed acetaminophen 500 mg tablet 1,000 mg (2 x 500 mg) PO Q8H PRN 12/08/19 07/23/23 pain #90 tabs atorvastatin 40 mg tablet (Lipitor) 40 mg PO QHS 06/23/20 07/23/23 hydrochlorothiazide 25 mg tablet 12.5 mg PO DAILY 07/14/21 07/23/23 sertraline 100 mg tablet 200 mg PO DAILY 08/23/22 07/23/23 ketoconazole 2 % shampoo 1 applic topical .2x per week 05/03/23 07/23/23 memantine 5 mg tablet 5 mg PO BID 05/03/23 07/23/23 cholecalciferol (vitamin D3) 50 50 mcg PO DAILY 05/15/23 07/23/23 mcg (2,000 unit) capsule Previous Rx's Medication Instructions Recorded acetaminophen 500 mg tablet 1,000 mg (2 x 500 mg) PO Q8H PRN 12/08/19 pain #90 tabs Allergies Allergy/AdvReac Type Severity Reaction Status Date / Time No Known Allergies Allergy Verified 07/23/23 18:36 General Stated Complaint: InsectBite ULISES: 5 Review of Systems All systems reviewed & are unremarkable except as noted in HPI and below Constitutional Constitutional: Denies chills, Denies fever(s) and Denies weakness Cardiovascular Cardiovascular: Denies chest pain and Denies dyspnea Respiratory Respiratory: Denies cough and Denies dyspnea Gastrointestinal Gastrointestinal: Denies abdominal pain, Denies nausea and Denies vomiting Musculoskeletal Musculoskeletal: Denies joint swelling Neurologic Neurologic: Denies weakness Psychiatric Psychiatric: Denies depression Exam Const General: no acute distress Orientation: alert HENMT Head: normal to inspection Ears: external ears normal General nose exam: external nose normal Mouth: moist mucous membranes Eyes General: appearance normal, both eyes and all related structures Neck Neck: normal visual inspection Resp Effort & Inspection: normal respiratory effort and able to speak in complete sentences Cardio Rate: regular rate Skin General skin exam: no rashes or lesions noted Neuro General: patient alert and patient oriented x3 Extrem General: normal to inspection Psych Mental Status: mental status grossly normal Course Vital Signs Vital signs: Vital Signs Temperature 36.9 C 07/23/23 18:33 Pulse 59 L 07/23/23 18:33 Respiratory Rate 20 07/23/23 18:33 Blood Pressure 132/70 07/23/23 18:33 Pulse Oximetry 97 07/23/23 18:33 Temperature 36.9 C 07/23/23 18:33 Temperature Source Skin 07/23/23 18:33 Pulse 59 L 07/23/23 18:33 Respiratory Rate 20 07/23/23 18:33 Respiratory Effort Normal, Non-Labored 07/23/23 18:40 Blood Pressure 132/70 07/23/23 18:33 Blood Pressure Position Sitting 07/23/23 18:33 Pulse Oximetry 97 07/23/23 18:33 Oxygen Delivery Method Room Air 07/23/23 18:33 Oxygen Flow Rate 0 07/23/23 18:33 Pain Level 0 07/23/23 18:33 Medical Decision Making 23-year-old male comes in with complaint of a tick bite. He is unsure definitively how long it was on his left arm for, he noticed a tick on his left antecubital fossa tonight and his removed it. He otherwise feels well, no fevers or systemic symptoms. He is a less than 1 mm size lesion that does appear to be recent tick bite. No surrounding erythema or drainage. Swelling of the arm. Retained head visible. Will provide a one-time dose of prophylactic doxycycline, advised to follow-up with his primary care provider if symptoms of Lyme Differential Diagnosis Differential Diagnosis: Tick bite, Lyme Quality:SDOH Health Related Social Needs: No Data to Display PFSH All Active Problems (Updated 07/23/23 @ 18:52 by Daniel Walden MD) Tick bite (Acute) Restless leg syndrome (Acute) Advanced care planning/counseling discussion (Acute) Alzheimer's dementia (Acute) Diagnosis January 2023 [facility] [place] memory clinic: Early stage/late onset Alzheimer's dementia Palliative care patient (Acute) Bilateral hearing loss due to cerumen impaction (Acute) Skin lesion (Acute) Recurrent right inguinal hernia (Acute) Diverticula of colon (Acute) sigmoid- minor Dx CE 09/01 Change in bowel function (Acute) Constipation (Acute) Hiatal hernia (Chronic) Poor appetite (Acute) Unexplained weight loss (Acute) Tinnitus (Acute 07/01/13) 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) Sensorineural hearing loss, bilateral (Acute 07/01/13) Primary osteoarthritis of right knee (Acute 09/26/17) Injection: 08/12/2018 Neoplasm of skin (Acute 06/30/13) Impacted cerumen of both ears (Acute) Squamous cell carcinoma in situ (SCCIS) (Acute) History of total right knee replacement (Acute 07/26/21) DOS 07/26/21 Abdominal pain (Acute) Seborrheic dermatitis of scalp (Acute) Musculoskeletal pain (Acute) Trochanteric bursitis, right hip (Acute) Umbilical hernia (Acute) Coronary artery calcification seen on CAT scan (Acute) Regurgitation of stomach contents (Acute) Hiatal hernia with GERD (Acute) Medical History Mild cognitive impairment Memory deficit Diabetes Palpitations Per pt. states he has not had palpatations for years Rosacea History of degenerative joint disease History of onychomycosis Actinic keratoses Hyperlipidemia Carpal tunnel syndrome Hx of colonic polyps Obstructive sleep apnea Hearing loss Anxiety with depression Essential hypertension Memory loss Hx of psoriasis Hx of sleep apnea uses CPAP Surgical History Hx of right inguinal hernia repair (~08/2022) Hx of umbilical hernia repair (~08/2022) History of esophagogastroduodenoscopy (EGD) (~08/2022) History of knee replacement Status post total left knee replacement H/O vasectomy History of hernia repair Hx of colonoscopy (~04/2019) [place] - Tubular adenoma x4. Social History Smoking/Tobacco Use Status: Former Tobacco Use Quit Date: 03/12/80 Smoking risk assessment performed?: Yes Alcohol Intake: current Alcohol Intake frequency: a few times a week Alcohol type: hard liquor Drug use: Never Substance use type: does not use Household members: spouse Housing: house Number of Children: 3 number of grandchildren: 0 Pets and animals: Yes Pets and animals: dog(s) Current gender identity: male What is your relationship status?: Panel score (0-1 are the most socially isolated patients): 1 What type of physical activity do you participate in: walking Seatbelt use: always Do you feel safe at home: Yes Do you feel safe in your relationship?: Yes
[2023-07-23] MEDS: Doxycycline Hyclate 100 MG CAP 200 MG PO (18:59)
== END 2023-07-23 19:00 | disposition home or self-care (01) ==
PROVIDERS: Emergency Provider Emergency Medicine; PCP Family Medicine
DX: S50.362A Insect bite (nonvenomous) of left elbow, initial encounter (principal); E11.9 Type 2 diabetes mellitus without complications; I10 Essential (primary) hypertension; G30.9 Alzheimer's disease, unspecified; F02.80 Dementia in other diseases classified elsewhere, unspecified severity, without behavioral disturbance, psychotic disturbance, mood disturbance, and anxiety; Z87.891 Personal history of nicotine dependence; W57.XXXA Bitten or stung by nonvenomous insect and other nonvenomous arthropods, initial encounter
CPT/HCPCS: 99283

== ENCOUNTER 2023-10-15 21:30 | Outpatient (REF) | payer MEDICARE, BC, SELFPAY ==
[2023-10-15 22:02] LABS: HCT 43.5 % (40.0-50.0); HGB 15.3 g/dL (13.5-17.5); MCH 32.5 pg (27.0-33.0); MCHC 35.2 % (32.0-36.0); MCV 92 fL (80-95); MPV 10.5 fL (8.0-11.0); Platelet Count 211 10^3/uL (130-400); RBC 4.71 10^6/uL (4.36-5.78); WBC 7.69 10^3/uL (4.4-10.8)
[2023-10-15 22:09] LABS: ALT 19 U/L (16-63); AST 22 U/L (15-37); Albumin 3.9 g/dL (3.4-5.0); Alkaline Phosphatase 106 U/L (46-116); BUN 19 mg/dL (7-18); Bilirubin, Total 0.42 mg/dL (0.2-1.0); CREATININE 1.2 mg/dL (0.70-1.30); Calcium 8.8 mg/dL (8.5-10.1); Chloride 104 mmol/L (98-107); Estimated GFR 63.85 (mL/min/1.73m2); Glucose 121 mg/dL (74-106); Potassium 3.5 mmol/L (3.5-5.1); Sodium 142 mmol/L (136-145); Total Protein 6.5 g/dL (6.4-8.2)
== END 2023-10-15 21:31 | disposition home or self-care (01) ==
LOC: NCHCN 21:30
PROVIDERS: PCP Family Medicine; Visit Provider Family Medicine
DX: I10 Essential (primary) hypertension (principal)
CPT/HCPCS: 80053; 85027

== ENCOUNTER 2024-07-04 07:13 | Day surgery (SDC) | payer MEDICARE, BC, SELFPAY ==
--- NOTE | 2024-07-03 21:19 | HPE_ITS ---
Assessment and Plan Assessment and plan (1) Cortical age-related cataract, left eye: Status: Acute Assessment and plan: Assessment: Visually significant cataract, left eye. Plant: Cataract extraction with intraocular lens implant, left eye (2) Nuclear age-related cataract, left eye: Status: Acute Assessment and plan: Assessment: Visually significant cataract, left eye. Plant: Cataract extraction with intraocular lens implant, left eye History of Present Illness History of Present Illness Chief Complaint: Progressive decreased vision left eye Narrative: The patient is a 73-year-old male with history of progressive decreased vision in both eyes at both distance and near. This has been gradual. He has difficulty driving at night due to glare and can no longer read road signs. Review of Systems All systems reviewed & are unremarkable except as noted in HPI and below PFSH All Active Problems Cortical age-related cataract, left eye (Acute) Nuclear age-related cataract, left eye (Acute) Cerumen impaction (Acute) Actinic keratosis (Acute) Advanced care planning/counseling discussion (Acute) Palliative care patient (Acute) Alzheimer's dementia (Acute) Diagnosis [place] 2023 [facility] [place] Early stage/late onset Alzhei doug's dementia Bilateral hearing loss due to cerumen impaction (Acute) Skin lesion (Acute) Recurrent right inguinal hernia (Acute) Diverticula of colon (Acute) sigmoid- minor Dx CE 09/01 Change in bowel function (Acute) Constipation (Acute) Hiatal hernia (Chronic) Poor appetite (Acute) Unexplained weight loss (Acute) Hiatal hernia with GERD (Acute) Regurgitation of stomach contents (Acute) Coronary artery calcification seen on CAT scan (Acute) Umbilical hernia (Acute) Trochanteric bursitis, right hip (Acute) Musculoskeletal pain (Acute) Seborrheic dermatitis of scalp (Acute) Abdominal pain (Acute) History of total right knee replacement (Acute 07/26/21) DOS 07/26/21 Squamous cell carcinoma in situ (SCCIS) (Acute) Rosacea (Acute) Restless leg syndrome (Acute) Impacted cerumen of both ears (Acute) Neoplasm of skin (Acute 06/30/13) Primary osteoarthritis of right knee (Acute 09/26/17) Injection: 08/12/2018 Sensorineural hearing loss, bilateral (Acute 04/22/14) 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 states he has not had palpatations for years History of degenerative joint disease History of onychomycosis Actinic keratoses Hyperlipidemia Carpal tunnel syndrome Hx of colonic polyps Obstructive sleep apnea Hearing loss Anxiety with depression Essential hypertension Memory loss Hx of psoriasis Hx of sleep apnea uses CPAP Surgical History Hx of right inguinal hernia repair (~08/2022) Hx of umbilical hernia repair (~08/2022) History of esophagogastroduodenoscopy (EGD) (~08/2022) History of knee replacement Status post total left knee replacement H/O vasectomy History of hernia repair Hx of colonoscopy (~04/2019) [place] - Tubular adenoma x4. Social History Smoking/Tobacco Use Status: Former Tobacco Use Quit Date: 03/12/80 Smoking risk assessment performed?: Yes Alcohol Intake: former Drug use: Never Substance use type: does not use Household members: spouse Housing: house Number of Children: 3 number of grandchildren: 0 Pets and animals: Yes Pets and animals: dog(s) Current gender identity: male What is your relationship status?: Panel score (0-1 are the most socially isolated patients): 1 What type of physical activity do you participate in: walking Seatbelt use: always Do you feel safe at home: No (UTAP) Additional Social history: UTAP Meds Allergies and Home Medications Allergies Allergy/AdvReac Type Severity Reaction Status Date / Time donepezil AdvReac Intermediate Contraindic Verified 07/04/24 08:10 ated Home Medications ?Medication ?Instructions ?Recorded ?Confirmed ?Type acetaminophen 500 mg tablet 1,000 mg (2 x 500 mg) PO Q8H PRN 12/08/19 07/04/24 Rx pain #90 tabs atorvastatin 40 mg tablet (Lipitor) 40 mg PO QHS 06/23/20 07/04/24 History hydrochlorothiazide 25 mg tablet 12.5 mg PO DAILY 07/14/21 07/04/24 History sertraline 100 mg tablet 200 mg PO DAILY 08/23/22 07/04/24 History ketoconazole 2 % shampoo 1 applic topical .2x per week 05/03/23 07/04/24 History cholecalciferol (vitamin D3) 50 50 mcg PO DAILY 05/15/23 07/04/24 History mcg (2,000 unit) capsule memantine 5 mg tablet 10 mg PO BID 09/18/23 07/04/24 History fluorouracil 5 % topical cream 1 applic topical bid 21 days #40 11/09/23 07/04/24 Rx (Efudex) grams metronidazole 0.75 % topical gel 1 applic topical BID 30 days #45 11/09/23 06/30/24 Rx grams Exam Eyes Other: Most recent ocular examination is significant for corrected visual acuity of 20/25 OD, 20/40 OS. Extraocular agility is normal. Intraocular pressure is 17 OD, 19 OS. Slit-lamp examination shows 1+ nuclear 2+ cortical cataract in the right eye. In the left eye there is a 2+ nuclear 3+ cortical cataract. The pupils dilate to 6 mm. Dilated funduscopic examination shows disc cupping of 0.5 OD 0.4 OS with normal vessels, macula, peripheral retina and vitreous. There is a mild epiretinal membrane in the inferotemporal macula in the right eye. Resp Auscultation: clear to auscultation bilaterally Cardio Rate: regular rate Rhythm: regular rhythm
[2024-07-04] MEDS: Tropicam./Phenyleph. (1/2.5%) 5 ML BTL OS ×3 (07:54→08:11)
[2024-07-04 07:58] VITALS: BP 132/75; PULSE 51; RESP 16; TEMP 36.4; O2SAT 98
--- NOTE | 2024-07-04 08:13 | ANES.PREOP_ITS ---
General Info Date of Service Date Performed: 07/04/24 Height: 6 ft Weight: 94.8 kg Body Mass Index (BMI): 28.3 Surgical Procedure: Operation Date: 07/04/24 09:40 Proposed Procedure Side Surgeon p Cataract Extraction with IOL Implant Left Terry Fowler MD Meds Allergies and Home Medications Allergies Allergy/AdvReac Type Severity Reaction Status Date / Time donepezil AdvReac Intermediate Contraindic Verified 07/04/24 08:10 ated Home Medication ?Medication ?Instructions ?Recorded acetaminophen 500 mg tablet 1,000 mg (2 x 500 mg) PO Q8H PRN 12/08/19 pain #90 tabs atorvastatin 40 mg tablet (Lipitor) 40 mg PO QHS 06/23/20 hydrochlorothiazide 25 mg tablet 12.5 mg PO DAILY 07/14/21 sertraline 100 mg tablet 200 mg PO DAILY 08/23/22 ketoconazole 2 % shampoo 1 applic topical .2x per week 05/03/23 cholecalciferol (vitamin D3) 50 50 mcg PO DAILY 05/15/23 mcg (2,000 unit) capsule memantine 5 mg tablet 10 mg PO BID 09/18/23 fluorouracil 5 % topical cream 1 applic topical bid 21 days #40 11/09/23 (Efudex) grams metronidazole 0.75 % topical gel 1 applic topical BID 30 days #45 11/09/23 grams Current Visit Medications: Current Medications Generic Name Dose Route Start Last Admin Trade Name Freq PRN Reason Stop Dose Admin Acetaminophen 1,000 mg 07/05/24 06:00 Acetaminophen 500 Mg Tab PO 08/04/24 05:59 Q4H PRN PRN Balanced Salt Solution 500 ml 07/05/24 06:00 Balanced Salt Soln.-Plus 500 Ml Bag OP 08/04/24 05:59 DIRECTED VERNA Miscellaneous Medication 0 ml 07/05/24 06:00 Prednisolone 1%, Moxifloxacin 0.5%, Bromfenac 0.09% 5.6ml Btl OS 08/04/24 05:59 DIRECTED VERNA Miscellaneous Medication 0 ml 07/05/24 06:00 Tropicam./Phenyleph. (1/2.5%) 5 Ml Btl OS 08/04/24 05:59 DIRECTED VERNA Tetracaine HCl 0 ml 07/05/24 06:00 Tetracaine 0.5% 4 Ml Btl OS 08/04/24 05:59 DIRECTED VERNA [facility] Active Problems Active Problems: Problem Status Onset Code Cortical age-related cataract, left eye Acute H25.012 Nuclear age-related cataract, left eye Acute H25.12 Cerumen impaction Acute H61.20 Actinic keratosis Acute L57.0 Advanced care planning/counseling discussion Acute Z71.89 Palliative care patient Acute Z51.5 Alzheimer's dementia Acute G30.9, F02.80 Bilateral hearing loss due to cerumen impaction Acute H61.23 Skin lesion Acute L98.9 Recurrent right inguinal hernia Acute K40.91 Diverticula of colon Acute K57.30 Change in bowel function Acute R19.8 Constipation Acute K59.00 Hiatal hernia Chronic K44.9 Poor appetite Acute R63.0 Unexplained weight loss Acute R63.4 Hiatal hernia with GERD Acute K21.9, K44.9 Regurgitation of stomach contents Acute R11.10 Coronary artery calcification seen on CAT scan Acute I25.10 Umbilical hernia Acute K42.9 Trochanteric bursitis, right hip Acute M70.61 Musculoskeletal pain Acute M79.18 Seborrheic dermatitis of scalp Acute L21.9 Abdominal pain Acute R10.9 History of total right knee replacement Acute 07/26/21 Z96.651 Squamous cell carcinoma in situ (SCCIS) Acute D09.9 Rosacea Acute L71.9 Restless leg syndrome Acute G25.81 Impacted cerumen of both ears Acute H61.23 Neoplasm of skin Acute 06/30/13 D49.2 Primary osteoarthritis of right knee Acute 18 M17.11 Sensorineural hearing loss, bilateral Acute 07/01/13 H90.3 Squamous cell carcinoma in situ Acute 03/23/14 D09.9 Tinnitus Acute 07/01/13 H93.19 Medical History Medical History Diabetes Per denies Palpitations Per pt. states he has not had palpatations for years History of degenerative joint disease History of onychomycosis Actinic keratoses Hyperlipidemia Carpal tunnel syndrome Hx of colonic polyps Obstructive sleep apnea Hearing loss Anxiety with depression Essential hypertension Memory loss Hx of psoriasis Hx of sleep apnea uses CPAP Medical History Comments:: uses CPAP everynight. Surgical History Surgical History Hx of right inguinal hernia repair (~08/2022) Hx of umbilical hernia repair (~08/2022) History of esophagogastroduodenoscopy (EGD) (~08/2022) History of knee replacement Status post total left knee replacement H/O vasectomy History of hernia repair Hx of colonoscopy (~04/2019) [place] - Tubular adenoma x4. Tobacco Smoking/Tobacco Use Status: Former Tobacco Use Passive smoking exposure: No Alcohol Alcohol Intake: former Substance Use Substance use: Never Substance use type: does not use Vital Signs and Lab Results Vital Signs Most Recent Vital Signs in EMR: Most Recent Vital Signs Temp Pulse Resp BP Pulse Ox 36.4 C L 51 L 16 132/75 98 07/04/24 07:58 07/04/24 07:58 07/04/24 07:58 07/04/24 07:58 07/04/24 07:58 Lab Results Blood Type / Crossmatch: No Data to Display Complete Blood Count: No Data to Display Complete Metabolic Panel: No Data to Display Liver Function Panel: No Data to Display Coagulation Panel: No Data to Display Cardiac Panel: No Data to Display Arterial Blood Gas: No Data to Display Venous Blood Gas: No Data to Display Pancreas Panel: No Data to Display Thyroid Panel: No Data to Display Infectious Disease: No Data to Display Blood Cultures: No Data to Display Toxicology Panel: No Data to Display Imaging and Studies Imaging and Studies Study information below may be from another EMR and interpreted by another provider. Please see original notes in EMR for more complete details. EKG Summary: Conclusion Sinus rhythm...normal P axis, V-rate 60- 99 Multiple ventricular premature complexes...V complexes w/ short R-R intervls Right bundle branch block...QRSd>120, terminal axis(90,270) 07/26/21 Stress Test Summary: Stress ECG Conclusion 1. The resting electrocardiogram showed right bundle branch block 2. Patient exercised on the Jovon protocol and completed a workload of 10.16 METS 3. Normal heart rate and blood pressure response to exercise. The patient achieved 91% predicted heart rate for age 4. There was no electrocardiographic evidence of myocardial ischemia 5. Sporadic PVCs were seen 6. See MPI report Gomez Treadmill Score is 8.0 which is Low risk. 5/11/23 Anesthesia Assessment and Plan Anesthesia History Personal History: No History of Anesthesia Complications Family History: No Family History of Anesthesia Complications Exercise Tolerance Exercise Tolerance: Metabolic Equivalents>4 Pertinent Negatives Pertinent Negatives: No Major Cardiovascular Symptoms or Complaints and No Major Pulmonary Symptoms or Complaints Cardiac & Pulmonary Exam Cardiac Exam: Normal S1/S2 Heart Sounds Pulmonary Exam: Clear Bilateral Breath Sounds Cardiac and Pulmonary Comment:: CPAP Implantable Cardiac Device Does patient have a Pacemaker or an ICD?: No Airway Exam Known Difficult Airway: No Mallampati Class: 2 Mouth Opening: Normal (> 3cm) Thyromental Distance: Greater than 3 cm Neck Range of Motion: Full ROM Neck Circumference: Normal Teeth Condition: Normal Dentition and Loose or Chipped (Tooth 13 chipped) ASA Classification ASA Score: ASA 2 Emergency Case?: No NPO Status NPO Status: NPO Clears >2 hours, Solids >8 hours Anesthesia Plan Resuscitation Status: Full Code Anesthesia Technique: MAC Anesthesia Airway Planned: Natural Airway Monitors Used: Standard Monitors Preoperative Comments:: Requests ELENA
[2024-07-04 08:44] VITALS: BMI 28.3
[2024-07-04] MEDS: Povidone-Iodine Ophth 30 ML BTL (09:35)
[2024-07-04] MEDS: Tetracaine 0.5% 4 ML BTL OS (09:40)
[2024-07-04] MEDS: Lidocaine 1% Pres-Free 5 ML VIAL (09:44)
[2024-07-04] MEDS: Duovisc Viscoelastic System EACH 1 EACH (09:44)
[2024-07-04] MEDS: Phenylephrine/Lidocaine (15/10) MG/ML 1 ML VIAL (09:45)
[2024-07-04] MEDS: Balanced Salt Soln.-PLUS 500 ML BAG OP (09:46)
[2024-07-04] MEDS: Trypan Blue 0.06% 0.5 ML SYR (09:46)
[2024-07-04] MEDS: Moxifloxacin-PF 1 MG/ML VIAL (09:55)
[2024-07-04] MEDS: Prednisolone 1%, Moxifloxacin 0.5%, Bromfenac 0.09% 5.6ML BTL OS (09:56)
[2024-07-04 10:05] VITALS: BP 132/79; PULSE 50; RESP 18; TEMP 36.4; O2SAT 94
--- NOTE | 2024-07-04 10:09 | W.PM.DSUDISC ---
Date of service: 07/04/24 Discharge Plan Disposition Patient Disposition: Home Discharge Details Attending Provider: Terry Fowler Primary Care Provider: Giorgi Green Home Meds and New Rx's Prescriptions: No Action atorvastatin [Lipitor] 40 mg tablet 40 mg PO QHS cholecalciferol (vitamin D3) 50 mcg (2,000 unit) capsule 50 mcg PO DAILY Patient Comments: takes in winter memantine 5 mg tablet 10 mg PO BID metronidazole 0.75 % gel 1 applic topical BID 30 Days Qty: 45 2RF fluorouracil [Efudex] 5 % cream 1 applic topical bid 21 Days Qty: 40 1RF acetaminophen 500 mg tablet 1,000 mg PO Q8H PRN (Reason: pain) Qty: 90 3RF sertraline 100 mg tablet 200 mg PO DAILY ketoconazole 2 % shampoo 1 applic topical .2x per week hydrochlorothiazide 25 mg tablet 12.5 mg PO DAILY Discharge Instructions Stand Alone Forms: DSU Post-Op CataractJonathan (DSU) Discharge Orders Discharge Orders: Discharge Order (Routine); Ordered 07/04/24 Ordered By: Terry Fowler DS: Diagnosis Discharge Diagnosis (1) Cortical age-related cataract, left eye: Status: Resolved (2) Nuclear age-related cataract, left eye: Status: Resolved
--- NOTE | 2024-07-04 10:10 | ROE_ITS ---
Operative Note Operative Note PRE-OP DIAGNOSIS: Nuclear/cortical cataract, left eye POST-OP DIAGNOSIS: same PROCEDURE: Cataract extraction using phacoemulsification with intraocular lens implant, left eye SURGEON: Terry Fowler ANESTHESIA TYPE: Local By Surgeon and MAC Refer to Anesthesia Record PATHOLOGY: none sent COMPLICATIONS: None Patient was transported to: same day Patient's condition: stable Implants: Naif Clareon [id number] Indications: Progressive decreased vision due to cataract, left eye Procedure Description: CATARACT SURGERY OPERATIVE REPORT PREOPERATIVE DIAGNOSIS: Nuclear/cortical cataract, left eye POSTOPERATIVE DIAGNOSIS: Same OPERATION: Cataract extraction using phacoemulsification with posterior chamber intraocular lens implant, left eye. IOL: IOL Telemarketing Sales Representative/Model: Naif Clareon [id number] IOL Power: + 22.5 diopters IOL Serial Number: [id number] Optic Diameter: 6.0mm Haptic/Overall Diameter: 13.0mm PHACO INFO: Naif Centurion Vision System with OZil and Active Fluidics Cumulative Dispersed Energy (CDE): 2.68 seconds SURGEON: Terry Fowler MD, NGOC ANESTHESIA: Monitored Anesthesia Care (MAC), with local sub-tenon's anesthetic infiltration COMPLICATIONS: None SPECIMENS: None INDICATIONS FOR PROCEDURE: The patient is a 74-year-old male with history of diminished visual acuity in his left eye secondary to the development of nuclear/cortical cataract. He is significantly symptomatic that he desires cataract surgery in attempt to improve and maximize his vision. The option of cataract surgery was offered to the patient and he wished to proceed. See office notes for detailed information. PROCEDURE: The correct surgical eye was identified and marked as the left eye and the pupil was dilated in the preoperative area using mydriatics and cycloplegics. The dilated pupil size was 6.0 mm. Oral sedation was administered in the form of an Imprimis MKO Melt (midazolam 3mg/ketamine 25mg/ondansetron 2mg). The patient was brought to the operating room where cardiopulmonary monitoring was instituted and surgical time-out was performed, confirming the correct operative eye and IOL power. Topical anesthesia was administered and ophthalmic povidone-iodine 5% was instilled into the conjunctival fornices. The earnestine-ocular area was prepped with Betadine 10% solution and draped in the usual sterile fashion for intraocular surgery, including an aperture drape. A Tegaderm transparent film dressing was cut in half and used to cover the lashes and lid margins. Care was taken to sequester the lashes and lid margins under the Tegaderm dressing. A lid speculum was placed between the lids of the operative eye and the Naif LuxOR Revalia operating microscope was maneuvered into position. Low scissors were then used to make a conjunctival buttonhole approximately 6mm posterior to the limbus in the inferonasal quadrant. Blunt dissection was carried out to expose bare sclera, and a blunt-tipped sub-tenon?s anesthesia cannula was introduced and passed posteriorly along the globe where non- preserved plain lidocaine was injected into posterior sub-Tenon?s space. A sideport knife was used to make a paracentesis port. VisionBlue was injected into the anterior chamber and allowed to sit for 30 seconds. Intraocular phenylephrine/lidocaine was injected into the anterior chamber. The anterior chamber was then filled with viscoelastic. A keratome knife was used construct a two-plane clear corneal tunnel extending 2.0mm into clear cornea. A flap was raised on the anterior capsule and capsulorhexis forceps were used to complete a continuous curvilinear capsulorhexis of 5.0 mm. Balanced salt solution was then used to perform cortical cleaving hydrodissection and nuclear hydrodelineation until the lens could be freely rotated within the capsular bag. The lens nucleus was then disassembled and removed within the capsular bag and iris plane using phacoemulsification. Residual cortical material was removed using the irrigation/aspiration handpiece. The posterior capsule was carefully polished to remove as much residual lens epithelial cells as safely possible. The capsular bag was then inflated and the anterior chamber deepened with viscoelastic. The lens implant described above was inserted into the capsular bag using the Naif Autonome Injector. A Kuglen hook was used to dial the IOL into position. Residual viscoelastic was then removed first from posterior to the IOL, then fro m the anterior chamber using the I/A handpiece. The lens implant was noted to center nicely within the capsular bag. The incisions were stromally hydrated, and the anterior chamber was reformed using BSS. Then 0.5cc of moxifloxacin 1.0mg/ml were injected into the capsular bag and anterior chamber. The incisions were checked with a Weck spear and found to be secure. Several drops of ophthalmic povidone-iodine 5% were then applied to the eye followed by two drops of combination steroid/NSAID/antibiotic solution. The drapes were removed and a clear plastic protective eye shield was placed over the eye. The patient was then returned to Same Day Surgery in stable condition. Date of Procedure: 07/04/24
[2024-07-04 10:35] VITALS: BP 115/66; PULSE 54; RESP 18; TEMP 36; O2SAT 99
--- NOTE | 2024-07-04 10:51 | W.ANESPOSTOP ---
Postoperative Evaluation Date, Time and Location Date Performed: 07/04/24 Time Performed: 10:35 Patient Location: Day Surgery Unit Vital Signs Most Recent Imported Vital Signs: Most Recent Vital Signs Temp Pulse Resp BP Pulse Ox 36 C L 54 L 18 115/66 99 07/04/24 10:35 07/04/24 10:35 07/04/24 10:35 07/04/24 10:35 07/04/24 10:35 Pain Score Most Recent Pain Score: Most Recent Pain Score Pain Level 0 07/04/24 10:35 Assessment Mental Status: Awake (Alert & Oriented to Patient Baseline) Airway and Respiratory Function: Patent airway with normal (patient baseline) respiratory exam Cardiovascular Function: Hemodynamically Stable Hydration Status: Adequately Hydrated Nausea & Vomiting: No Nausea or Vomiting Pain: Pt. Denies Any Pain Peripheral Nerve Block: Patient did not receive a nerve block
== END 2024-07-04 10:40 | disposition home or self-care (01) ==
LOC: SUR 07:13
PROVIDERS: PCP Family Medicine; Visit Provider Ophthalmology
PROC: (CPT 66984; principal; 2024-07-04 09:30)
DX: H25.012 Cortical age-related cataract, left eye (principal); H25.12 Age-related nuclear cataract, left eye
CPT/HCPCS: 66984; 00123; V2632; J2003

== ENCOUNTER 2024-07-18 12:49 | Day surgery (SDC) | payer MEDICARE, BC, SELFPAY ==
--- NOTE | 2024-07-17 20:14 | HPE_ITS ---
Assessment and Plan Assessment and plan (1) Cortical age-related cataract, right eye: Status: Acute Assessment and plan: Assessment: Visually significant cataract, right eye. Plan: Cataract extraction with intraocular lens implantation right eye. (2) Nuclear age-related cataract, right eye: Status: Acute Assessment and plan: Assessment: Visually significant cataract, right eye. Plan: Cataract extraction with intraocular lens implantation right eye History of Present Illness History of Present Illness Chief Complaint: Progressive decreased vision right eye Narrative: The patient is a 73-year-old male with history of progressive decreased vision in both eyes at both distance and near. He no significant difficulty with glare when driving at night. He can no longer read road signs and has trouble reading a tape measure. He now presents for cataract surgery in his right eye. He was noted to have bilateral cataracts and underwent cataract surgery in the left eye on 07/04/2024. Review of Systems All systems reviewed & are unremarkable except as noted in HPI and below PFSH All Active Problems Cortical age-related cataract, right eye (Acute) Nuclear age-related cataract, right eye (Acute) Cerumen impaction (Acute) Actinic keratosis (Acute) Advanced care planning/counseling discussion (Acute) Palliative care patient (Acute) Alzheimer's dementia (Acute) Diagnosis January 2023 [facility] memory clinic: Early stage/late onset Al zheimer's dementia Bilateral hearing loss due to cerumen impaction (Acute) Skin lesion (Acute) Recurrent right inguinal hernia (Acute) Diverticula of colon (Acute) sigmoid- minor Dx CE 09/01 Change in bowel function (Acute) Constipation (Acute) Hiatal hernia (Chronic) Poor appetite (Acute) Unexplained weight loss (Acute) Hiatal hernia with GERD (Acute) Regurgitation of stomach contents (Acute) Coronary artery calcification seen on CAT scan (Acute) Umbilical hernia (Acute) Trochanteric bursitis, right hip (Acute) Musculoskeletal pain (Acute) Seborrheic dermatitis of scalp (Acute) Abdominal pain (Acute) History of total right knee replacement (Acute 07/26/21) DOS 07/26/21 Squamous cell carcinoma in situ (SCCIS) (Acute) Rosacea (Acute) Restless leg syndrome (Acute) Impacted cerumen of both ears (Acute) Neoplasm of skin (Acute 06/30/13) Primary osteoarthritis of right knee (Acute 09/26/17) Injection: 08/12/2018 Sensorineural hearing loss, bilateral (Acute 07/01/13) 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 states he has not had palpatations for years History of degenerative joint disease History of onychomycosis Actinic keratoses Hyperlipidemia Carpal tunnel syndrome Hx of colonic polyps Obstructive sleep apnea Hearing loss Anxiety with depression Essential hypertension Memory loss Hx of psoriasis Hx of sleep apnea uses CPAP Surgical History Hx of right inguinal hernia repair (~08/2022) Hx of umbilical hernia repair (~08/2022) History of esophagogastroduodenoscopy (EGD) (~08/2022) History of knee replacement Status post total left knee replacement H/O vasectomy History of hernia repair Hx of colonoscopy (~04/2019) [place] - Tubular adenoma x4. Social History Smoking/Tobacco Use Status: Former Tobacco Use Quit Date: 03/12/80 Smoking risk assessment performed?: Yes Alcohol Intake: former Drug use: Never Substance use type: does not use Household members: spouse Housing: house Number of Children: 3 number of grandchildren: 0 Pets and animals: Yes Pets and animals: dog(s) Current gender identity: male What is your relationship status?: Panel score (0-1 are the most socially isolated patients): 1 What type of physical activity do you participate in: walking Seatbelt use: always Do you feel safe at home: No (UTAP) Additional Social history: 07/18/24: UTAP Meds Allergies and Home Medications Allergies Allergy/AdvReac Type Severity Reaction Status Date / Time donepezil AdvReac Intermediate Contraindic Verified 07/17/24 13:32 ated Home Medications ?Medication ?Instructions ?Recorded ?Confirmed ?Type acetaminophen 500 mg tablet 1,000 mg (2 x 500 mg) PO Q8H PRN 12/08/19 07/18/24 Rx pain #90 tabs atorvastatin 40 mg tablet (Lipitor) 40 mg PO QHS 06/23/20 07/18/24 History hydrochlorothiazide 25 mg tablet 12.5 mg PO DAILY 07/14/21 07/18/24 History sertraline 100 mg tablet 200 mg PO DAILY 08/23/22 07/18/24 History ketoconazole 2 % shampoo 1 applic topical .2x per week 05/03/23 07/18/24 History cholecalciferol (vitamin D3) 50 50 mcg PO DAILY 05/15/23 07/18/24 History mcg (2,000 unit) capsule memantine 5 mg tablet 10 mg PO BID 09/18/23 07/18/24 History fluorouracil 5 % topical cream 1 applic topical bid 21 days #40 11/09/23 07/18/24 Rx (Efudex) grams metronidazole 0.75 % topical gel 1 applic topical BID 30 days #45 11/09/23 07/18/24 Rx grams Exam Eyes Other: Most recent eye exam significant for corrected visual acuity of 20/25 right eye, 20/40 left eye. Intraocular pressure was 17 OD, 19 OS. Extraocular Liz is normal. Slit-lamp examination is significant for 1+ nuclear 2+ cortical cataract in the right eye. Pupils dilated to 6 mm. There is a well-positioned PCIOL OS with clear posterior capsule. Funduscopic examination shows disc cupping of 0.5 OD 0.4 OS with an epiretinal membrane in the inferior temporal macula in the right eye. Otherwise, the vessels, macula, peripheral retina and vitreous are normal OU. Resp Auscultation: clear to auscultation bilaterally Cardio Rate: regular rate Rhythm: regular rhythm
--- NOTE | 2024-07-18 06:46 | ANES.PREOP_ITS ---
General Info Date of Service Date Performed: 07/18/24 Height: 6 ft Weight: 94.8 kg Body Mass Index (BMI): 28.3 Surgical Procedure: Operation Date: 07/18/24 15:40 Proposed Procedure Side Surgeon p Cataract Extraction with IOL Implant Right Terry Fowler MD Meds Allergies and Home Medications Allergies Allergy/AdvReac Type Severity Reaction Status Date / Time donepezil AdvReac Intermediate Contraindic Verified 07/17/24 13:32 ated Home Medication ?Medication ?Instructions ?Recorded acetaminophen 500 mg tablet 1,000 mg (2 x 500 mg) PO Q8H PRN 12/08/19 pain #90 tabs atorvastatin 40 mg tablet (Lipitor) 40 mg PO QHS 06/23/20 hydrochlorothiazide 25 mg tablet 12.5 mg PO DAILY 07/14/21 sertraline 100 mg tablet 200 mg PO DAILY 08/23/22 ketoconazole 2 % shampoo 1 applic topical .2x per week 05/03/23 cholecalciferol (vitamin D3) 50 50 mcg PO DAILY 05/15/23 mcg (2,000 unit) capsule memantine 5 mg tablet 10 mg PO BID 09/18/23 fluorouracil 5 % topical cream 1 applic topical bid 21 days #40 11/09/23 (Efudex) grams metronidazole 0.75 % topical gel 1 applic topical BID 30 days #45 11/09/23 grams Current Visit Medications: Current Medications Generic Name Dose Route Start Last Admin Trade Name Freq PRN Reason Stop Dose Admin Acetaminophen 1,000 mg 07/18/24 06:00 Acetaminophen 500 Mg Tab PO 08/17/24 05:59 Q4H PRN PRN Balanced Salt Solution 500 ml 07/18/24 06:00 Balanced Salt Soln.-Plus 500 Ml Bag OP 08/17/24 05:59 DIRECTED VERNA Miscellaneous Medication 0 ml 07/18/24 06:00 Prednisolone 1%, Moxifloxacin 0.5%, Bromfenac 0.09% 5.6ml Btl OD 08/17/24 05:59 DIRECTED VERNA Miscellaneous Medication 0 ml 07/18/24 06:00 Tropicam./Phenyleph. (1/2.5%) 5 Ml Btl OD 08/17/24 05:59 DIRECTED VERNA Tetracaine HCl 0 ml 07/18/24 06:00 Tetracaine 0.5% 4 Ml Btl OD 08/17/24 05:59 DIRECTED VERNA [facility] Active Problems Active Problems: Problem Status Onset Code Cortical age-related cataract, right eye Acute H25.011 Nuclear age-related cataract, right eye Acute H25.11 Cortical age-related cataract, left eye Resolved H25.012 Nuclear age-related cataract, left eye Resolved H25.12 Cerumen impaction Acute H61.20 Actinic keratosis Acute L57.0 Advanced care planning/counseling discussion Acute Z71.89 Palliative care patient Acute Z51.5 Alzheimer's dementia Acute G30.9, F02.80 Bilateral hearing loss due to cerumen impaction Acute H61.23 Skin lesion Acute L98.9 Recurrent right inguinal hernia Acute K40.91 Diverticula of colon Acute K57.30 Change in bowel function Acute R19.8 Constipation Acute K59.00 Hiatal hernia Chronic K44.9 Poor appetite Acute R63.0 Unexplained weight loss Acute R63.4 Hiatal hernia with GERD Acute K21.9, K44.9 Regurgitation of stomach contents Acute R11.10 Coronary artery calcification seen on CAT scan Acute I25.10 Umbilical hernia Acute K42.9 Trochanteric bursitis, right hip Acute M70.61 Musculoskeletal pain Acute M79.18 Seborrheic dermatitis of scalp Acute L21.9 Abdominal pain Acute R10.9 History of total right knee replacement Acute 07/26/21 Z96.651 Squamous cell carcinoma in situ (SCCIS) Acute D09.9 Rosacea Acute L71.9 Restless leg syndrome Acute G25.81 Impacted cerumen of both ears Acute H61.23 Neoplasm of skin Acute 06/30/13 D49.2 Primary osteoarthritis of right knee Acute 09/26/17 M17.11 Sensorineural hearing loss, bilateral Acute 07/01/13 H90.3 Squamous cell carcinoma in situ Acute 03/23/14 D09.9 Tinnitus Acute 07/01/13 H93.19 Medical History Medical History Diabetes Per denies Palpitations Per pt. states he has not had palpatations for years History of degenerative joint disease History of onychomycosis Actinic keratoses Hyperlipidemia Carpal tunnel syndrome Hx of colonic polyps Obstructive sleep apnea Hearing loss Anxiety with depression Essential hypertension Memory loss Hx of psoriasis Hx of sleep apnea uses CPAP Medical History Comments:: uses CPAP everynight. Surgical History Surgical History Hx of right inguinal hernia repair (~08/2022) Hx of umbilical hernia repair (~08/2022) History of esophagogastroduodenoscopy (EGD) (~08/2022) History of knee replacement Status post total left knee replacement H/O vasectomy History of hernia repair Hx of colonoscopy (~04/2019) [place] - Tubular adenoma x4. Tobacco Smoking/Tobacco Use Status: Former Tobacco Use Passive smoking exposure: No Alcohol Alcohol Intake: former Substance Use Substance use: Never Substance use type: does not use Vital Signs and Lab Results Vital Signs Most Recent Vital Signs in EMR: Temp Pulse Resp BP Pulse Ox 35.9 C L 54 L 16 143/79 H 98 07/18/24 13:09 07/18/24 13:09 07/18/24 13:09 07/18/24 13:09 07/18/24 13:09 Lab Results Blood Type / Crossmatch: No Data to Display Complete Blood Count: No Data to Display Complete Metabolic Panel: No Data to Display Liver Function Panel: No Data to Display Coagulation Panel: No Data to Display Cardiac Panel: No Data to Display Arterial Blood Gas: No Data to Display Venous Blood Gas: No Data to Display Pancreas Panel: No Data to Display Thyroid Panel: No Data to Display Infectious Disease: No Data to Display Blood Cultures: No Data to Display Toxicology Panel: No Data to Display Imaging and Studies Imaging and Studies Study information below may be from another EMR and interpreted by another provider. Please see original notes in EMR for more complete details. EKG Summary: Conclusion Sinus rhythm...normal P axis, V-rate 60- 99 Multiple ventricular premature complexes...V complexes w/ short R-R intervls Right bundle branch block...QRSd>120, terminal axis(90,270) 07/26/21 Stress Test Summary: Stress ECG Conclusion 1. The resting electrocardiogram showed right bundle branch block 2. Patient exercised on the Jovon protocol and completed a workload of 10.16 METS 3. Normal heart rate and blood pressure response to exercise. The patient achieved 91% predicted heart rate for age 4. There was no electrocardiographic evidence of myocardial ischemia 5. Sporadic PVCs were seen 6. See MPI report Gomez Treadmill Score is 8.0 which is Low risk. 07/20/22 Anesthesia Assessment and Plan Anesthesia History Personal History: No History of Anesthesia Complications Family History: No Family History of Anesthesia Complications Exercise Tolerance Exercise Tolerance: Metabolic Equivalents>4 Cardiac & Pulmonary Exam Cardiac Exam: Normal S1/S2 Heart Sounds Pulmonary Exam: Clear Bilateral Breath Sounds Implantable Cardiac Device Does patient have a Pacemaker or an ICD?: No Airway Exam Known Difficult Airway: No Mallampati Class: 2 Mouth Opening: Normal (> 3cm) Thyromental Distance: Greater than 3 cm Neck Range of Motion: Full ROM Neck Circumference: Normal Teeth Condition: Normal Dentition and Loose or Chipped (Tooth 13 chipped) ASA Classification ASA Score: ASA 3 Emergency Case?: No NPO Status NPO Status: NPO Clears >2 hours, Solids >8 hours Anesthesia Plan Resuscitation Status: Full Code Anesthesia Technique: MAC Anesthesia Airway Planned: Natural Airway Monitors Used: Standard Monitors Preoperative Comments:: 74 yo male for repeat cataract. previous cat with MKO. Sig PMHx: CAD (off CT scan), HTN (HCTZ), BRIAN, GERD, Alzheimer's (memantine), RLS, anxiety/depression, former smoker. stress: rbbb, 10 mets, no ecg evidence of ischemia. Previous Anes: - hernia, easy mask, mac 3 grade 1, no issues. - colo, prop, natural airway, no issues. - EGD, prop, lido topical, no issues. - TKA, chloro spinal, prop sedation, no issues.
[2024-07-18] MEDS: Tropicam./Phenyleph. (1/2.5%) 5 ML BTL OD ×3 (13:06→13:21)
[2024-07-18 13:09] VITALS: BP 143/79; PULSE 54; RESP 16; TEMP 35.9; O2SAT 98
[2024-07-18 13:27] VITALS: BMI 28.3
[2024-07-18] MEDS: Lidocaine 1% Pres-Free 5 ML VIAL (13:55)
[2024-07-18] MEDS: Moxifloxacin-PF 1 MG/ML VIAL (13:55)
[2024-07-18] MEDS: Phenylephrine/Lidocaine (15/10) MG/ML 1 ML VIAL (13:55)
[2024-07-18] MEDS: Povidone-Iodine Ophth 30 ML BTL (13:56)
[2024-07-18] MEDS: Duovisc Viscoelastic System EACH 1 EACH (13:56)
[2024-07-18] MEDS: Balanced Salt Soln.-PLUS 500 ML BAG OP (13:56)
[2024-07-18] MEDS: Prednisolone 1%, Moxifloxacin 0.5%, Bromfenac 0.09% 5.6ML BTL OD (13:57)
[2024-07-18] MEDS: Tetracaine 0.5% 4 ML BTL OD (13:57)
[2024-07-18 14:10] VITALS: BP 135/79; PULSE 54; RESP 14; TEMP 36.7; O2SAT 96
--- NOTE | 2024-07-18 14:12 | W.PM.DSUDISC ---
Date of service: 07/18/24 Discharge Plan Disposition Patient Disposition: Home Discharge Details Attending Provider: Terry Fowler Primary Care Provider: Giorgi Green Home Meds and New Rx's Prescriptions: No Action atorvastatin [Lipitor] 40 mg tablet 40 mg PO QHS cholecalciferol (vitamin D3) 50 mcg (2,000 unit) capsule 50 mcg PO DAILY Patient Comments: takes in winter memantine 5 mg tablet 10 mg PO BID metronidazole 0.75 % gel 1 applic topical BID 30 Days Qty: 45 2RF fluorouracil [Efudex] 5 % cream 1 applic topical bid 21 Days Qty: 40 1RF acetaminophen 500 mg tablet 1,000 mg PO Q8H PRN (Reason: pain) Qty: 90 3RF sertraline 100 mg tablet 200 mg PO DAILY ketoconazole 2 % shampoo 1 applic topical .2x per week hydrochlorothiazide 25 mg tablet 12.5 mg PO DAILY Discharge Instructions Stand Alone Forms: DSU Post-Op CataractJonathan (DSU) Discharge Orders Discharge Orders: Discharge Order (Routine); Ordered 07/18/24 Ordered By: Terry Fowler DS: Diagnosis Discharge Diagnosis (1) Cortical age-related cataract, right eye: Status: Resolved (2) Nuclear age-related cataract, right eye: Status: Resolved
--- NOTE | 2024-07-18 14:13 | ROE_ITS ---
Operative Note Operative Note PRE-OP DIAGNOSIS: Nuclear/cortical cataract, right eye POST-OP DIAGNOSIS: same PROCEDURE: Cataract extraction using phacoemulsification with intraocular lens implant, right eye SURGEON: Terry Fowler ANESTHESIA TYPE: Local By Surgeon and MAC Refer to Anesthesia Record ESTIMATED BLOOD LOSS: 0 PATHOLOGY: none sent COMPLICATIONS: None Patient was transported to: same day Patient's condition: stable Implants: Naif Clareon [id number] Indications: Progressive decreased vision due to cataract, right eye Procedure Description: CATARACT SURGERY OPERATIVE REPORT PREOPERATIVE DIAGNOSIS: Nuclear/cortical cataract, right eye POSTOPERATIVE DIAGNOSIS: Same OPERATION: Cataract extraction using phacoemulsification with posterior chamber intraocular lens implant, right eye. IOL: IOL [employer] Administrator/Model: Naif Clareon [id number] IOL Power: + 22.5 diopters IOL Serial Number: [id number] Optic Diameter: 6.0mm Haptic/Overall Diameter: 13.0mm PHACO INFO: Naif Centurion Vision System with OZil and Active Fluidics Cumulative Dispersed Energy (CDE): 3.40 seconds SURGEON: Terry Fowler MD, NGOC ANESTHESIA: Monitored Anesthesia Care (MAC), with local sub-tenon's anesthetic infiltration COMPLICATIONS: None SPECIMENS: None INDICATIONS FOR PROCEDURE: The patient is a 74-year-old male with history of diminished visual acuity in both eyes secondary to the development of bilateral nuclear/cortical cataract. He has already undergone cataract surgery in the left eye and is doing well postoperatively. He now presents for cataract surgery in the right eye. See office notes for detailed information. PROCEDURE: The correct surgical eye was identified and marked as the right eye and the pupil was dilated in the preoperative area using mydriatics and cycloplegics. The dilated pupil size was 7.0 mm. Oral sedation was administered in the form of an Imprimis MKO Melt (midazolam 3mg/ketamine 25mg/ondansetron 2mg). The patient was brought to the operating room where cardiopulmonary monitoring was instituted and surgical time-out was performed, confirming the correct operative eye and IOL power. Topical anesthesia was administered and ophthalmic povidone-iodine 5% was instilled into the conjunctival fornices. The earnestine-ocular area was prepped with Betadine 10% solution and draped in the usual sterile fashion for intraocular surgery, including an aperture drape. A Tegaderm transparent film dressing was cut in half and used to cover the lashes and lid margins. Care was taken to sequester the lashes and lid margins under the Tegaderm dressing. A lid speculum was placed between the lids of the operative eye and the Naif LuxOR Revalia operating microscope was maneuvered into position. Low scissors were then used to make a conjunctival buttonhole approximately 6mm posterior to the limbus in the inferonasal quadrant. Blunt dissection was carried out to expose bare sclera, and a blunt-tipped sub-tenon?s anesthesia cannula was introduced and passed posteriorly along the globe where non- preserved plain lidocaine was injected into posterior sub-Tenon?s space. A sideport knife was used to make a paracentesis port. Intraocular phenylephrine/lidocaine was injected into the anterior chamber. The anterior chamber was then filled with viscoelastic. A keratome knife was used to construct a two--plane clear corneal tunnel extending 2.0mm into clear cornea. A flap was raised on the anterior capsule and capsulorhexis forceps were used to complete a continuous curvilinear capsulorhexis of 5.0 mm. Balanced salt solution was then used to perform cortical cleaving hydrodissection and nuclear hydrodelineation until the lens could be freely rotated within the capsular bag. The lens nucleus was then disassembled and removed within the capsular bag and iris plane using phacoemulsification. Residual cortical material was removed using the I/A handpiece. The posterior capsule was carefully polished to remove as much residual lens epithelial cells as safely possible. The capsular bag was then inflated and the anterior chamber deepened with cohesive viscoelastic. The lens implant described above was inserted into the capsular bag using the Naif Autonome Injector. A Kuglen hook was used to dial the IOL into position. Residual viscoelastic was then removed first from posterior to the IOL, then from the anterior chamber using the I/A handpiece. The lens implant was noted to center nicely within the capsular bag. The incisions were stromally hydrated, and the anterior chamber was reformed using BSS. Then 0.5cc of moxifloxacin 1.0mg/ml were injected into the capsular bag and anterior chamber. The incisi ons were checked with a Weck spear and found to be secure. Several drops of ophthalmic povidone-iodine 5% were then applied to the eye followed by two drops of combination steroid/NSAID/antibiotic solution. The drapes were removed and a clear plastic protective eye shield was placed over the eye. The patient was then returned to Same Day Surgery in stable condition. Date of Procedure: 07/18/24
--- NOTE | 2024-07-18 14:22 | W.ANESPOSTOP ---
Postoperative Evaluation Date, Time and Location Date Performed: 07/18/24 Time Performed: 14:22 Patient Location: Day Surgery Unit Vital Signs Most Recent Imported Vital Signs: Most Recent Vital Signs Temp Pulse Resp BP Pulse Ox 36.7 C 54 L 14 135/79 96 07/18/24 14:10 07/18/24 14:10 07/18/24 14:10 07/18/24 14:10 07/18/24 14:10 Pain Score Most Recent Pain Score: Most Recent Pain Score Pain Level 0 07/18/24 14:10 Assessment Mental Status: Awake (Alert & Oriented to Patient Baseline) Airway and Respiratory Function: Patent airway with normal (patient baseline) respiratory exam Cardiovascular Function: Hemodynamically Stable Hydration Status: Adequately Hydrated Nausea & Vomiting: No Nausea or Vomiting Pain: Pt. Denies Any Pain Peripheral Nerve Block: Patient did not receive a nerve block
[2024-07-18 14:32] VITALS: BP 126/74; PULSE 53; RESP 18; TEMP 36.6; O2SAT 96
== END 2024-07-18 14:39 | disposition home or self-care (01) ==
LOC: SUR 12:49
PROVIDERS: PCP Family Medicine; Visit Provider Ophthalmology
PROC: (CPT 66984; principal; 2024-07-18 15:30)
DX: H25.011 Cortical age-related cataract, right eye (principal); H25.11 Age-related nuclear cataract, right eye; I10 Essential (primary) hypertension; K21.9 Gastro-esophageal reflux disease without esophagitis; Z98.42 Cataract extraction status, left eye
CPT/HCPCS: 66984; 00123; V2632; J2003

== ENCOUNTER 2024-08-31 12:52 | Inpatient (IN) | payer MEDICARE, BC, SELFPAY ==
[2024-08-31] VITALS (50 sets, daily range): BP systolic 100–159; BP diastolic 40–76; PULSE 58–114; RESP 13–29; TEMP 37.5–38.3; O2SAT 92–96
--- NOTE | 2024-08-31 13:00 | DI.CT_ITS ---
Exam(s) CT BRAIN NECK CTA EXAM: CT BRAIN NECK CTA CLINICAL HISTORY: CODE STROKE. TECHNIQUE: Imaging Protocol: Axial CT angiography was performed with multi- slice acquisition and multi-planar and/or 3D reconstructions. CONTRAST MATERIAL: Intravenous: Omnipaque 350 contrast volume:70 mL COMPARISON: CT CT HEAD WO from 08/31/2024 FINDINGS: CT Head w: Ventricles and Extra axial spaces: Normal in size and morphology for the patient's age. Hemorrhage: None. Cerebral parenchyma: There are areas of decreased attenuation in the white matter consistent with chronic microvascular ischemic disease. The focus of hyperdensity adjacent to the occipital horn is unchanged. Midline shift: None. Brainstem/Cerebellum: Normal. Calvarium: Normal. Visualized Paranasal sinuses/Mastoids: Clear. Soft Tissues: Unremarkable. Enhancement: Unremarkable. CTA Neck W: Common Carotid: Right: No dissection, occlusion or significant stenosis. Left: No dissection, occlusion or significant stenosis. External Carotid: Right: No occlusion or significant stenosis. Left: No occlusion or significant stenosis. Internal Carotid: Right: No dissection, occlusion or significant stenosis. There is atherosclerotic calcification with less than 50 percent stenosis. Left: No evidence of occlusion or significant stenosis. There is a very short segment small dissection at the posterior aspect of the junction of the carotid bulb and internal carotid artery (series 8, image 87) and (series 28, image 73). It measures 3-4 mm in length. There is no significant stenosis. Atherosclerotic calcification is seen with less than 50 percent stenosis. Vertebral Artery: Right: No dissection, occlusion or significant stenosis. Left: No dissection, occlusion or significant stenosis. Lung Apices: Normal. Bones: Within normal limits for the patient's age. Soft Tissues: Normal. Thyroid gland: Unremarkable. CTA Brain W: Internal Carotid Arteries: Atherosclerotic calcification is present. There is less than 50 percent stenosis. No evidence of an aneurysm, occlusion or significant stenosis. Anterior Cerebral Arteries: Right: No aneurysm, occlusion or significant stenosis. Left: No aneurysm, occlusion or significant stenosis. Middle Cerebral Arteries: Right: No aneurysm, occlusion or significant stenosis. Left: No aneurysm, occlusion or significant stenosis. Posterior Cerebral Arteries: Right: No aneurysm, occlusion or significant stenosis. Left: No aneurysm, occlusion or significant stenosis. Vertebral Arteries: There is mild atherosclerotic calcification bilaterally. No significant stenosis is present. Right: No aneurysm, occlusion or significant stenosis. Left: No aneurysm, occlusion or significant stenosis. Basilar Artery: No aneurysm, occlusion or significant stenosis. IMPRESSION: 1. No large vessel occlusion or significant stenosis on the CT angiography of the head. 2. No acute intracranial process. 3. 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 No evidence of stenosis. 4. Findings were discussed with Saurav King at 2:50 p.m. on 08/31/2024. 5. A follow-up examination of the brain in 2-4 hours is recommended for re- evaluation of the hyperdensity on the left. RADIATION DOSE DELIVERED: 1,432.62mGy.cm Total DLP DATA REPOSITORY: All CT scans at this facility are submitted to the National Radiology Data Registry (NRDR) Dose Index Registry (DIR) with the [employer] (A[employer]). RADIATION OPTIMIZATION: All CT scans at this facility use at least one of these dose optimization techniques: automated exposure control; mA and/or kV adjustment per patient size (includes targeted exams where dose is matched to clinical indication); or iterative reconstruction.
--- NOTE | 2024-08-31 13:00 | RT.EKG_ITS ---
APPROVED REPORT Exam: Resting ECG Reason for Exam: confusion, unsteady Patient Location: E HR:88 bpm ECG Measurements Heart Rate 88 AXIS IA 158 P 83 QRSd 139 QRS 22 QT 461 T 69 QTc 557 Conclusion Sinus rhythm...normal P axis, V-rate 60- 99 Right bundle branch block...QRSd>120, terminal axis(90,270) ST elevation secondary to IVCD...Multiple VCG criteria Physician: no stemi
--- NOTE | 2024-08-31 13:00 | DI.RAD_ITS ---
Exam(s) XR CHEST 1V IN DI DEPT EXAM: XR CHEST 1V IN DI DEPT CLINICAL HISTORY: confusion TECHNIQUE: 2D digital imaging was performed of the chest. One image was obtained. An AP view was obtained. COMPARISON: No exams were available for comparison FINDINGS: MEDIASTINUM: Normal. HEART: Normal. PULMONARY VASCULATURE: There is mild haziness of the pulmonary vasculature which may reflect some degree of pulmonary venous congestion. LUNGS: There are no focal consolidating infiltrates. PLEURAL SPACE: No pleural effusion or pneumothorax. BONE:Within normal limits for the patient's age. OTHER FINDINGS:Normal. IMPRESSION: 1. Possible mild pulmonary venous congestion. 2. No focal consolidating infiltrates. DATA REPOSITORY: RADIATION DOSE DELIVERED:
--- NOTE | 2024-08-31 13:00 | DI.CT_ITS ---
Exam(s) CT HEAD WO EXAM: CT HEAD WO CLINICAL HISTORY: CODE STROKE. TECHNIQUE: Imaging Protocol: Axial computed tomography images with coronal and sagittal reformatted images were created and reviewed COMPARISON: No exams were available for comparison FINDINGS: Ventricles and Extra axial spaces: Normal in size and morphology for the patient's age. Hemorrhage: None. Cerebral parenchyma: There are areas of decreased attenuation in the white matter consistent with chronic microvascular ischemic disease. There is no acute mass effect. There is a small focus of hyperdensity medial to the occipital horn of the left lateral ventricle. Midline shift: None. Brainstem/Cerebellum: Normal. Calvarium: Normal. Visualized Paranasal sinuses/Mastoids: Clear. Soft Tissues: Unremarkable. IMPRESSION: 1. No evidence of an acute territorial infarct. No mass effect. 2. Findings of chronic microvascular ischemic disease. 3. Small focus of hyperdensity medial to the occipital horn of the left lateral ventricle. Tiny focus of hemorrhage cannot be entirely excluded. A short-term follow-up examination is recommended to document stability. RADIATION DOSE DELIVERED: 976.93mGy.cm Total DLP DATA REPOSITORY: All CT scans at this facility are submitted to the National Radiology Data Registry (NRDR) Dose Index Registry (DIR) with the [employer] (ACR). RADIATION OPTIMIZATION: All CT scans at this facility use at least one of these dose optimization techniques: automated exposure control; mA and/or kV adjustment per patient size (includes targeted exams where dose is matched to clinical indication); or iterative reconstruction.
--- NOTE | 2024-08-31 13:15 | ED.GENADUL_ITS ---
Discharge Plan Disposition Patient Disposition: Admit to [facility] Condition: Stable Discharge Details Clinical Impression: Cerebrovascular accident Primary Care Provider: Giorgi Green ED Provider: Saurav King Home Meds and New Rx's Prescriptions: No Action atorvastatin [Lipitor] 40 mg tablet 40 mg PO QHS cholecalciferol (vitamin D3) 50 mcg (2,000 unit) capsule 50 mcg PO DAILY Patient Comments: takes in winter memantine 5 mg tablet 10 mg PO BID metronidazole 0.75 % gel 1 applic topical BID 30 Days Qty: 45 2RF fluorouracil [Efudex] 5 % cream 1 applic topical bid 21 Days Qty: 40 1RF acetaminophen 500 mg tablet 1,000 mg PO Q8H PRN (Reason: pain) Qty: 90 3RF sertraline 100 mg tablet 200 mg PO DAILY ketoconazole 2 % shampoo 1 applic topical .2x per week hydrochlorothiazide 25 mg tablet 12.5 mg PO DAILY HPI General Date/Time Provider Initiated Documentation: 08/31/24 13:06 . HPI Narrative: 74 year-old male presents to ED today by POV/ambulating with his with a chief complaint of unsteadiness, speech difficulty, not acting himself with onset around 1100 - noticed he was shaking when she got back from walking the dog - states he had been acting normally all morning, had breakfast with their daughter. Quality described as not acting himself, speech changes, unsteadiness of gait, no radiation to fever, cough, chest pain, shortness of breath, facial droop, drooling. Severity is described as patient is unable to quantify. Palliating factors include nothing specific attempted. Provoking factors include nothing specific. 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 Patient has known Alzheimer's Disease. Patient not anticoagulated. Related Data Home Medications ?Medication ?Instructions ?Recorded ?Confirmed acetaminophen 500 mg tablet 1,000 mg (2 x 500 mg) PO Q 8H PRN 12/08/19 08/31/24 pain #90 tabs atorvastatin 40 mg tablet (Lipitor) 40 mg PO QHS 06/2308/31/24 hydrochlorothiazide 25 mg tablet 12.5 mg PO DAILY 07/3108/31/24 sertraline 100 mg tablet 200 mg PO DAILY 08/23/22 ketoconazole 2 % shampoo 1 applic topical .2x per wee k 05/03/23 08/31/24 cholecalciferol (vitamin D3) 50 50 mcg PO DAILY 08/31/24 mcg (2,000 unit) capsule memantine 5 mg tablet 10 mg PO BID 09/18/23 fluorouracil 5 % topical cream 1 applic topical bid 21 days #40 11/09/23 08/31/24 (Efudex) grams metronidazole 0.75 % topical gel 1 applic topical BID 30 days #45 11/09/23 08/31/24 grams Previous Rx's ?Medication ?Instructions ?Recorded acetaminophen 500 mg tablet 1,000 mg (2 x 500 mg) PO Q 8H PRN 12/08/19 pain #90 tabs fluorouracil 5 % topical cream 1 applic topical bid 21 days #40 11/09/23 (Efudex) grams metronidazole 0.75 % topical gel 1 applic topical BID 30 days #45 11/09/23 grams Allergies Allergy/AdvReac Type Severity Reaction Status Date / Time donepezil AdvReac Intermediate Contraindic Verified 08/31/24 13:05 ated General Stated Complaint: AMS/LOC ULISES: 3 Review of Systems All systems reviewed & are unremarkable except as noted in HPI and below Exam Narrative Exam Narrative: GENERAL APPEARANCE: Well-nourished, non-toxic, awake and alert, atraumatic, no acute distress. SKIN: Warm, pink, dry, intact, without rashes/lesions/ulcerations. HEAD: Normocephalic, atraumatic-no Bartlett sign, no periorbital ecchymosis, normal hair distribution for gender/age. EYES: Normal conjunctiva, no exudates on lids/lashes, no gaze palsy or ophthalmoplegia, EOMs intact, pupils PERRLA. ENT: Nares patent, no circumoral cyanosis, no facial swelling NECK: Supple, trachea midline, painless cervical ROM. LUNGS/CHEST: Lungs CTA bilaterally-no rhonchi/rales/wheezes diffusely, non- labored respirations, normal A/P diameter, symmetrical expansion, no chest wall deformity HEART (CV/PV): Regular rate and rhythm without murmur, no peripheral edema, no JVD, no carotid bruit bilaterally. ABDOMEN: Soft, non-distended, no guarding, no tenderness. MSK: Normal ROM, no swelling/deformity to bilateral UEs or LEs, moving all extremities without weakness, no cyanosis, spine midline without tenderness, normal curvature. NEURO: Mental Status AAOx4 - alert to person, does not know place or events No facial droop, no forehead involvement, has repetitive motion deficits Motor: No focal weakness - strength 5/5 in bilateral UEs and LEs, proximal and distal, symmetric.-But cannot follow commands and is having motor coordination deficits, neglect Sensory: sensation intact to light touch globally. Gait ataxic PSYCH: euthymic, cooperative, pleasant, appropriate speech Course Vital Signs Vital signs: Vital Signs Temperature 37.6 C 08/31/24 12:57 Pulse 85 08/31/24 12:57 Respiratory Rate 18 08/31/24 12:57 Blood Pressure 146/76 H 08/31/24 12:57 Pulse Oximetry 93 08/31/24 12:57 Temperature 37.6 C 08/31/24 12:57 Temperature Source Oral 08/31/24 12:57 Pulse 85 08/31/24 12:57 Respiratory Rate 18 08/31/24 12:57 Blood Pressure 146/76 H 08/31/24 12:57 Blood Pressure Position Sitting 08/31/24 12:57 Pulse Oximetry 93 08/31/24 12:57 Oxygen Delivery Method Room Air 08/31/24 12:57 Oxygen Flow Rate 0 08/31/24 12:57 Medical Decision Making This dictation utilizes [id number] dictation software and may contain unedited grammatical errors. 74 year-old male presents to ED today by POV/ambulating with his with a chief complaint of unsteadiness, speech difficulty, not acting himself with onset around 1100 - noticed he was shaking when she got back from walking the dog - states he had been acting normally all morning, had breakfast with their daughter. Quality described as not acting himself, speech changes, unsteadiness of gait, no radiation to fever, cough, chest pain, shortness of breath, facial droop, drooling. Severity is described as patient is unable to quantify. Palliating factors include nothing specific attempted. Provoking factors include nothing specific. 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 Patient has known Alzheimer's Disease. Patients' medical history: Diabetes, palpitations, hyperlipidemia, hypertension, Alzheimer's, psoriasis, history of EGD, palliative care patient. Family and social history: Lives at home with his , does lots of tinkering projects. Pertinent exam findings / vital signs include Benign cardiopulmonary exam, patient has having significant difficulty following exams, no gaze palsy, is moving all extremities with strength 5/5, having difficulty identifying f ollowing commands with placing his left index finger to his nose, answers location incorrectly states were at the store, benign abdomen, no respiratory distress. NIH: 4 Differential / pathologies of concern include CVA, encephalopathy. Diagnostic studies of: -CBC, CMP, troponin, BNP, magnesium, lactate, lipase, CT head without, CTA brain and neck with contrast, XR chest, EKG, TSH, ammonia, tick and Lyme panel. -CBC shows no leukocytosis - Lactate negative - CMP without actionable abnormality - Magnesium is mildly low at 1.7, would replete with normal p.o. intake - Ammonia negative - Troponin negative - BNP negative - Lipase negative - TSH within normal limits - EKG without ischemic changes, has a right bundle branch block, T waves inverted V2 V3 V4, some subtle ST depression V5 V6 - CT head shows a possible hypodensity in the left lateral ventricle, small focus of hemorrhage is not excluded- radiology recommends repeat at 3 hrs, ~1620 - CTA shows small 3mm dissection of carotid at the bulb Interventions of: -[facility] [place] [facility] - recommends repeat head CT at 1930- they are not convinced this is a bleed, likely calcification- but hold loading with aspirin and 300mg plavix until we confirm, until then control BP < 140/90. They do not feel the carotid finding would warrant this. The patients symptoms are rapidly improving- regardless of this CT finding needing short-interval imaging they were going to recommend against tPa. They recommend doubling his atorvastatin from 20 mg to 40 mg and doing on the standard stroke admission studies of echocardiogram PT eval etc. ED Course/Assessment/Plan: 74-year-old male presents with difficulty with commands, coordination and gait problems, slurred speech per with last known well around 1100 hrs. today, he has no history of stroke, he does have history 70 years ago falling from a second story window unsure if he had any intracranial bleeding at that time, he has chronic Alzheimer's and is a palliative care patient. There are subtle findings on his CT head that require a 6-hour repeat image, patient is signed out to Roya Casper NP pending this and she will follow-up with hospitalist. 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 Disposition of Cerebrovascular Accident. Patient verbalized understanding of the plan and return to ED criteria and engaged in shared decision making. Medical Records Medical records reviewed: Yes I reviewed the patient's medical records. Imaging Data Radiologic Study: Attestation: I personally reviewed and interpreted this imaging study as follows: Imaging: CT Scan Radiologist's impression: EXAM: CT HEAD WO CLINICAL HISTORY: CODE STROKE. TECHNIQUE: Imaging Protocol: Axial computed tomography images with coronal and sagittal reformatted images were created and reviewed COMPARISON: No exams were available for comparison FINDINGS: Ventricles and Extra axial spaces: Normal in size and morphology for the patient's age. Hemorrhage: None. Cerebral parenchyma: There are areas of decreased attenuation in the white matter consistent with chronic microvascular ischemic disease. There is no acute mass effect. There is a small focus of hyperdensity medial to the occipital horn of the left lateral ventricle. Midline shift: None. Brainstem/Cerebellum: Normal. Calvarium: Normal. Visualized Paranasal sinuses/Mastoids: Clear. Soft Tissues: Unremarkable. IMPRESSION: 1. No evidence of an acute territorial infarct. No mass effect. 2. Findings of chronic microvascular ischemic disease. 3. Small focus of hyperdensity medial to the occipital horn of the left lateral ventricle. Tiny focus of hemorrhage cannot be entirely excluded. A short-term follow-up examination is recommended to document stability. Radiologic Study #2: Attestation: I personally reviewed and interpreted this imaging study as follows: Imaging: CT Scan Radiologist's impression: EXAM: CT BRAIN NECK CTA CLINICAL HISTORY: CODE STROKE. TECHNIQUE: Imaging Protocol: Axial CT angiography was performed with multi- slice acquisition and multi-planar and/or 3D reconstructions. CONTRAST MATERIAL: Intravenous: Omnipaque 350 contrast volume:70 mL COMPARISON: CT CT HEAD WO from 08/31/2024 FINDINGS: CT Head w: Ventricles and Extra axial spaces: Normal in size and morphology for the patient's age. Hemorrhage: None. Cerebral parenchyma: There are areas of decreased attenuation in the white matter consistent with chronic microvascular ischemic disease. The focus of hyperdensity adjacent to the occipital horn is unchanged. Midline shift: None. Brainstem/Cerebellum: Normal. Calvarium: Normal. Visualized Paranasal sinuses/Mastoids: Clear. Soft Tissues: Unremarkable. Enhancement: Unremarkable. CTA Neck W: Common Carotid: Right: No dissection, occlusion or significant stenosis. Left: No dissection, occlusion or significant stenosis. External Carotid: Right: No occlusion or significant stenosis. Left: No occlusion or significant stenosis. Internal Carotid: Right: No dissection, occlusion or significant stenosis. There is athe rosclerotic calcification with less than 50 percent stenosis. Left: No evidence of occlusion or significant stenosis. There is a very short segment small dissection at the posterior aspect of the junction of the carotid bulb and internal carotid artery (series 8, image 87) and (series 28, image 73). It measures 3-4 mm in length. There is no significant stenosis. Atherosclerotic calcification is seen with less than 50 percent stenosis. Vertebral Artery: Right: No dissection, occlusion or significant stenosis. Left: No dissection, occlusion or significant stenosis. Lung Apices: Normal. Bones: Within normal limits for the patient's age. Soft Tissues: Normal. Thyroid gland: Unremarkable. CTA Brain W: Internal Carotid Arteries: Atherosclerotic calcification is present. There is less than 50 percent stenosis. No evidence of an aneurysm, occlusion or significant stenosis. Anterior Cerebral Arteries: Right: No aneurysm, occlusion or significant stenosis. Left: No aneurysm, occlusion or significant stenosis. Middle Cerebral Arteries: Right: No aneurysm, occlusion or significant stenosis. Left: No aneurysm, occlusion or significant stenosis. Posterior Cerebral Arteries: Right: No aneurysm, occlusion or significant stenosis. Left: No aneurysm, occlusion or significant stenosis. Vertebral Arteries: There is mild atherosclerotic calcification bilaterally. No significant stenosis is present. Right: No aneurysm, occlusion or significant stenosis. Left: No aneurysm, occlusion or significant stenosis. Basilar Artery: No aneurysm, occlusion or significant stenosis. IMPRESSION: 1. No large vessel occlusion or significant stenosis on the CT angiography of the head. 2. No acute intracranial process. 3. 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 No evidence of stenosis. 4. Findings were discussed with Saurav King at 2:50 p.m. on 08/31/2024. 5. A follow-up examination of the brain in 2-4 hours is recommended for re- evaluation of the hyperdensity on the left. Radiologic Study #3: Attestation: I personally reviewed and interpreted this imaging study as follows: Imaging: X-Ray Radiologist's impression: EXAM: XR CHEST 1V IN DI DEPT CLINICAL HISTORY: confusion TECHNIQUE: 2D digital imaging was performed of the chest. One image was obtained. An AP view was obtained. COMPARISON: No exams were available for comparison FINDINGS: MEDIASTINUM: Normal. HEART: Normal. PULMONARY VASCULATURE: There is mild haziness of the pulmonary vasculature which may reflect some degree of pulmonary venous congestion. LUNGS: There are no focal consolidating infiltrates. PLEURAL SPACE: No pleural effusion or pneumothorax. BONE:Within normal limits for the patient's age. OTHER FINDINGS:Normal. IMPRESSION: 1. Possible mild pulmonary venous congestion. 2. No focal consolidating infiltrates. Lab Data Lab results reviewed: Yes I reviewed the patient's lab results. Labs: Laboratory Tests Range/Units 08/31/24 08/31/24 08/31/24 13:19 13:19 14:01 WBC (4.4-10.8) 10^3/uL 6.80 RBC (4.36-5.78) 10^6/uL 4.51 Hgb (13.5-17.5) g/dL 14.2 Hct (40.0-50.0) % 41.0 MCV (80-95) fL 91 MCH (27.0-33.0) pg 31.5 MCHC (32.0-36.0) % 34.6 RDW (11.8-14.1) % 12.5 Plt Count (130-400) 10^3/uL 145 MPV (8.0-11.0) fL 9.5 Immature Gran % % 0.1 Neutrophils % % 92.9 Lymphocytes % % 4.6 Monocytes % % 1.6 Eosinophils % % 0.7 Basophils % % 0.1 Nucleated RBC % (0.0-0.3) % 0.0 Absolute Neutrophils (1.2-6.7) 10^3/uL 6.31 Absolute Lymphocytes (1.2-3.4) 10^3/uL 0.31 L Absolute Monocytes (0.1-0.8) 10^3/uL 0.11 Absolute Eosinophils (0.0-0.7) 10^3/uL 0.05 Absolute Basophils (0.0-0.2) 10^3/uL 0.01 VBG Lactate (<or=2.0) mmol/L 1.5 Sodium (136-145) mmol/L 141 Potassium (3.5-5.1) mmol/L 3.6 Chloride (98-107) mmol/L 103 Carbon Dioxide (21.0-32.0) mmol/L 30.7 Anion Gap (3-11) mmol/L 7.3 BUN (7-18) mg/dL 18 Creatinine (0.70-1.30) mg/dL 1.1 Est GFR (CKD-EPI 2020) (mL/min/1.73m2) 70.44 Glucose (74-106) mg/dL 104 Calcium (8.5-10.1) mg/dL 8.7 Magnesium (1.8-2.4) mg/dL 1.7 L Total Bilirubin (0.2-1.0) mg/dL 0.9 AST (15-37) U/L 29 ALT (16-63) U/L 16 Alkaline Phosphatase (46-116) U/L 93 Ammonia (11-32) umol/L < 10 L Troponin I (<or=76) ng/L 14 NT-Pro-B Natriuret Pep (<300) pg/mL 215 Total Protein (6.4-8.2) g/dL 6.9 Albumin (3.4-5.0) g/dL 3.9 Lipase (<78) U/L 29 TSH (0.36-3.74) uIU/mL 0.90 Cancelled PFSH All Active Problems (Updated 08/31/24 @ 16:20 by PHILLY Morales) Cerebrovascular accident (Chronic) Cerumen impaction (Acute) Actinic keratosis (Acute) Advanced care planning/counseling discussion (Acute) Palliative care patient (Acute) Alzheimer's dementia (Acute) Diagnosis January 2023 [facility] [place]: Early stage/late onset Alzheimer's dementia Bilateral hearing loss due to cerumen impaction (Acute) Skin lesion (Acute) Recurrent right inguinal hernia (Acute) Diverticula of colon (Acute) sigmoid- minor Dx CE 09/01 Change in bowel function (Acute) Constipation (Acute) Hiatal hernia (Chronic) Poor appetite (Acute) Unexplained weight loss (Acute) Hiatal hernia with GERD (Acute) Regurgitation of stomach contents (Acute) Coronary artery calcification seen on CAT scan (Acute) Umbilical hernia (Acute) Trochanteric bursitis, right hip (Acute) Musculoskeletal pain (Acute) Seborrheic dermatitis of scalp (Acute) Abdominal pain (Acute) History of total right knee replacement (Acute 07/26/21) DOS 07/26/21 Squamous cell carcinoma in situ (SCCIS) (Acute) Rosacea (Acute) Restless leg syndrome (Acute) Impacted cerumen of both ears (Acute) Neoplasm of skin (Acute 06/30/13) Primary osteoarthritis of right knee (Acute 09/26/17) Injection: 08/12/2018 Sensorineural hearing loss, bilateral (Acute 07/01/13) 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 states he has not had palpatations for years History of degenerative joint disease History of onychomycosis Actinic keratoses Hyperlipidemia Carpal tunnel syndrome Hx of colonic polyps Obstructive sleep apnea Hearing loss Anxiety with depression Essential hypertension Memory loss Hx of psoriasis Hx of sleep apnea uses CPAP Surgical History Hx of right inguinal hernia repair (~08/2022) Hx of umbilical hernia repair (~08/2022) History of esophagogastroduodenoscopy (EGD) (~08/2022) History of knee replacement Status post total left knee replacement H/O vasectomy History of hernia repair Hx of colonoscopy (~04/2019) [place] - Tubular adenoma x4. Social History Smoking/Tobacco Use Status: Former Tobacco Use Quit Date: 03/12/80 Smoking risk assessment performed?: Yes Alcohol Intake: former Drug use: Never Substance use type: does not use Household members: spouse Housing: house Number of Children: 3 number of grandchildren: 0 Pets and animals: Yes Pets and animals: dog(s) Current gender identity: male What is your relationship status?: Panel score (0-1 are the most socially isolated patients): 1 What type of physical activity do you participate in: walking Seatbelt use: always Do you feel safe at home: No (HERBERT) Additional Social history: 07/18/24: HERBERT
[2024-08-31 13:29] LABS: Lactate 1.5 mmol/L (<or=2.0)
[2024-08-31 13:30] LABS: Abs Immature Grans 0.01 10^3/uL (0.0-0.06); Absolute Basophil Count 0.01 10^3/uL (0.0-0.2); Absolute Eosinophil Count 0.05 10^3/uL (0.0-0.7); Absolute Lymphocyte Count 0.31 10^3/uL (1.2-3.4); Absolute Monocyte Count 0.11 10^3/uL (0.1-0.8); Absolute Neutrophil Count 6.31 10^3/uL (1.2-6.7); Basophils % 0.1 %; Eosinophils % 0.7 %; HGB 14.2 g/dL (13.5-17.5); Immature Grans % 0.1 %; Lymphocytes % 4.6 %; MCH 31.5 pg (27.0-33.0); MCHC 34.6 % (32.0-36.0); MCV 91 fL (80-95); MPV 9.5 fL (8.0-11.0); Monocytes % 1.6 %; Neutrophils % 92.9 %; Platelet Count 145 10^3/uL (130-400); RBC 4.51 10^6/uL (4.36-5.78); RDW 12.5 % (11.8-14.1)
[2024-08-31] MEDS: Normal Saline - Diluent 50 ML VIAL IJ (13:53)
[2024-08-31] MEDS: Omnipaque 350 MG/ML 100 ML BTL 70 ML IJ (13:54)
[2024-08-31 13:56] LABS: ALT 16 U/L (16-63); AST 29 U/L (15-37); Albumin 3.9 g/dL (3.4-5.0); Alkaline Phosphatase 93 U/L (46-116); Anion Gap 7.3 mmol/L (3-11); BUN 18 mg/dL (7-18); Bilirubin, Total 0.9 mg/dL (0.2-1.0); CO2 30.7 mmol/L (21.0-32.0); CREATININE 1.1 mg/dL (0.70-1.30); Calcium 8.7 mg/dL (8.5-10.1); Chloride 103 mmol/L (98-107); Estimated GFR 70.44 (mL/min/1.73m2); Glucose 104 mg/dL (74-106); Lipase 29 U/L (<78); Magnesium 1.7 mg/dL (1.8-2.4); NT-proBNP 215 pg/mL (<300); Potassium 3.6 mmol/L (3.5-5.1); Sodium 141 mmol/L (136-145); Total Protein 6.9 g/dL (6.4-8.2); Troponin I 14 ng/L (<or=76)
[2024-08-31 14:23] LABS: Ammonia < 10 umol/L (11-32)
--- NOTE | 2024-08-31 16:26 | W.EDPROG ---
Date of service: 08/31/24 Time of Service: 16:26 Medical Decision Making Care assumed from provider John FRAGA pending disposition, likely admit and repeat Head CT at 1930. PLease see previous HPI and PE. 1627: Contacted Dr. Bellamy via Webex and presented case to request admission. Per my colleague Tele neuro recommended ASA, Plavix, and Atorvastatin with increasing dose to 40mg if repeat CT negative for hemmorhage. Patient is not a TPa candidate. Dr. Bellamy and Team Shadia Pleitez agree to accept patient for admission for stroke rule out and repeat imaging. Discussed plan of care with patient and family who verbalized understanding. Patient transported up to the floor in hemodynamically stable condition. Medical Records Medical records reviewed: Yes I reviewed the patient's medical records. Lab Data Lab results reviewed: Yes I reviewed the patient's lab results. Labs: Laboratory Tests Range/Units 08/31/24 08/31/24 08/31/24 13:19 13:19 14:01 WBC (4.4-10.8) 10^3/uL 6.80 RBC (4.36-5.78) 10^6/uL 4.51 Hgb (13.5-17.5) g/dL 14.2 Hct (40.0-50.0) % 41.0 MCV (80-95) fL 91 MCH (27.0-33.0) pg 31.5 MCHC (32.0-36.0) % 34.6 RDW (11.8-14.1) % 12.5 Plt Count (130-400) 10^3/uL 145 MPV (8.0-11.0) fL 9.5 Immature Gran % % 0.1 Neutrophils % % 92.9 Lymphocytes % % 4.6 Monocytes % % 1.6 Eosinophils % % 0.7 Basophils % % 0.1 Nucleated RBC % (0.0-0.3) % 0.0 Absolute Neutrophils (1.2-6.7) 10^3/uL 6.31 Absolute Lymphocytes (1.2-3.4) 10^3/uL 0.31 L Absolute Monocytes (0.1-0.8) 10^3/uL 0.11 Absolute Eosinophils (0.0-0.7) 10^3/uL 0.05 Absolute Basophils (0.0-0.2) 10^3/uL 0.01 VBG Lactate (<or=2.0) mmol/L 1.5 Sodium (136-145) mmol/L 141 Potassium (3.5-5.1) mmol/L 3.6 Chloride (98-107) mmol/L 103 Carbon Dioxide (21.0-32.0) mmol/L 30.7 Anion Gap (3-11) mmol/L 7.3 BUN (7-18) mg/dL 18 Creatinine (0.70-1.30) mg/dL 1.1 Est GFR (CKD-EPI 2020) (mL/min/1.73m2) 70.44 Glucose (74-106) mg/dL 104 Calcium (8.5-10.1) mg/dL 8.7 Magnesium (1.8-2.4) mg/dL 1.7 L Total Bilirubin (0.2-1.0) mg/dL 0.9 AST (15-37) U/L 29 ALT (16-63) U/L 16 Alkaline Phosphatase (46-116) U/L 93 Ammonia (11-32) umol/L < 10 L Troponin I (<or=76) ng/L 14 NT-Pro-B Natriuret Pep (<300) pg/mL 215 Total Protein (6.4-8.2) g/dL 6.9 Albumin (3.4-5.0) g/dL 3.9 Lipase (<78) U/L 29 TSH (0.36-3.74) uIU/mL 0.90 Cancelled Discharge Plan Disposition Patient Disposition: Admit to [facility] Condition: Stable Discharge Details Clinical Impression: Cerebrovascular accident Admit Date/Time: 08/31/24 16:40 Admit Provider: Fer Bellamy Attending Provider: Fer Bellamy Primary Care Provider: Giorgi Green ED Provider: Ester Casper
--- NOTE | 2024-08-31 16:32 | W.PM.HP.N ---
Date of service: 08/31/24 Time of Service: 16:32 Assessment and Plan Assessment and plan (1) Cerebrovascular accident: Status: Chronic Assessment and plan: admitted to med/surg teleneuro consult with repeat CT scan planned for 1929 to r/o bleed stroke work up: telemetry, echo permissive HTN, check lipids/A1C high dose statin, asa, plavix after bleed ruled out. MRI tomorrow. DVT prophylaxis: teds and scds only while bleed being r/o (2) Hyperlipidemia: Status: Acute Assessment and plan: continue high dose statin for now (3) Essential hypertension: Status: Chronic Assessment and plan: allow for permissive HTN hold HCTZ routine monitoring (4) Obstructive sleep apnea: Status: Chronic Assessment and plan: home cpap (5) Alzheimer's dementia: Status: Acute Assessment and plan: safety precautions continue home medication (6) Anxiety with depression: Status: Acute Assessment and plan: continue home medication discussed with DR Bellamy History of Present Illness Narrative: presents to ED with sudden onset of shaking and then noted to have gait instability and difficulty with speech. His workup in the emergency department included a CAT scan which did show a small hypodense area in the left lateral ventricle a small focus of hemorrhage could not be excluded. Recommendations by teleneuro are to repeat CAT scan at 1930. 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 His symptoms have since resolved and feels he is at his baseline. Hospitalist services has been asked to admit for further monitoring and stroke evaluation. Review of Systems All systems reviewed & are unremarkable except as noted in HPI and below PFSH All Active Problems (Updated 08/31/24 @ 16:41 by Shadia Pleitez NP) Essential hypertension (Chronic) Anxiety with depression (Acute) Obstructive sleep apnea (Chronic) Hyperlipidemia (Acute) Cerebrovascular accident (Chronic) Cerumen impaction (Acute) Actinic keratosis (Acute) Advanced care planning/counseling discussion (Acute) Palliative care patient (Acute) Alzheimer's dementia (Acute) Diagnosis January 2023 [facility] [place] memory clinic: Early stage/late onset Alzheimer's dementia Bilateral hearing loss due to cerumen impaction (Acute) Skin lesion (Acute) Recurrent right inguinal hernia (Acute) Diverticula of colon (Acute) sigmoid- minor Dx CE 09/01 Change in bowel function (Acute) Constipation (Acute) Hiatal hernia (Chronic) Poor appetite (Acute) Unexplained weight loss (Acute) Hiatal hernia with GERD (Acute) Regurgitation of stomach contents (Acute) Coronary artery calcification seen on CAT scan (Acute) Umbilical hernia (Acute) Trochanteric bursitis, right hip (Acute) Musculoskeletal pain (Acute) Seborrheic dermatitis of scalp (Acute) Abdominal pain (Acute) History of total right knee replacement (Acute 07/26/21) DOS 07/26/21 Squamous cell carcinoma in situ (SCCIS) (Acute) Rosacea (Acute) Restless leg syndrome (Acute) Impacted cerumen of both ears (Acute) Neoplasm of skin (Acute 06/30/13) Primary osteoarthritis of right knee (Acute 09/26/17) Injection: 08/12/2018 Sensorineural hearing loss, bilateral (Acute 07/01/13) 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 states he has not had palpatations for years History of degenerative joint disease History of onychomycosis Actinic keratoses Hyperlipidemia Carpal tunnel syndrome Hx of colonic polyps Obstructive sleep apnea Hearing loss Anxiety with depression Essential hypertension Memory loss Hx of psoriasis Hx of sleep apnea uses CPAP Surgical History Hx of right inguinal hernia repair (~08/2022) Hx of umbilical hernia repair (~08/2022) History of esophagogastroduodenoscopy (EGD) (~08/2022) History of knee replacement Status post total left knee replacement H/O vasectomy History of hernia repair Hx of colonoscopy (~04/2019) [place] - Tubular adenoma x4. Social History Smoking/Tobacco Use Status: Former Tobacco Use Quit Date: 03/12/80 Smoking risk assessment performed?: Yes Alcohol Intake: former Drug use: Never Substance use type: does not use Household members: spouse Housing: house Number of Children: 3 number of grandchildren: 0 Pets and animals: Yes Pets and animals: dog(s) Current gender identity: male What is your relationship status?: Panel score (0-1 are the most socially isolated patients): 1 What type of physical activity do you participate in: walking Seatbelt use: always Do you feel safe at home: No (UTAP) Additional Social history: 07/18/24: UTAP Meds Allergies and Home Medications Allergies Allergy/AdvReac Type Severity Reaction Status Date / Time donepezil AdvReac Intermediate Contraindic Verified 08/31/24 13:05 ated Home Medications ?Medication ?Instructions ?Recorded ?Confirmed ?Type acetaminophen 500 mg tablet 1,000 mg (2 x 500 mg) PO Q8H PRN 12/08/19 08/31/24 Rx pain #90 tabs atorvastatin 40 mg tablet (Lipitor) 40 mg PO QHS 06/23/20 08/31/24 History hydrochlorothiazide 25 mg tablet 12.5 mg PO DAILY 07/14/21 08/31/24 History sertraline 100 mg tablet 200 mg PO DAILY 08/23/22 08/31/24 History ketoconazole 2 % shampoo 1 applic topical .2x per week 05/03/23 08/31/24 History cholecalciferol (vitamin D3) 50 50 mcg PO DAILY 05/15/23 08/31/24 History mcg (2,000 unit) capsule memantine 5 mg tablet 10 mg PO BID 09/18/23 08/31/24 History fluorouracil 5 % topical cream 1 applic topical bid 21 days #40 11/09/23 08/31/24 Rx (Efudex) grams metronidazole 0.75 % topical gel 1 applic topical BID 30 days #45 11/09/23 08/31/24 Rx grams Exam Narrative Exam Narrative: Well-appearing male stated age in no acute distress head is atraumatic eyes nonicteric noninjected oral mucosas moist facial features symmetrical rosacea. Neck full range of motion no JVD cardiovascular regular rate and rhythm no murmurs appreciated respirations even and unlabored abdomen is flat nontender extremities are without peripheral edema moves all extremities equally. Neurologic he is awake alert oriented able to provide meaningful history but does have evidence of cognitive impairment. No focal deficit. Psychiatric appropriate mood and affect Results Labs 08/31/24 13:19 08/31/24 13:19 Labs: Laboratory Results - last 24 hr 08/31/24 08/31/24 08/31/24 13:19 13:19 14:01 WBC 6.80 RBC 4.51 Hgb 14.2 Hct 41.0 MCV 91 MCH 31.5 MCHC 34.6 RDW 12.5 Plt Count 145 MPV 9.5 Immature Gran % 0.1 Neutrophils % 92.9 Lymphocytes % 4.6 Monocytes % 1.6 Eosinophils % 0.7 Basophils % 0.1 Nucleated RBC % 0.0 Absolute Neutrophils 6.31 Absolute Lymphocytes 0.31 L Absolute Monocytes 0.11 Absolute Eosinophils 0.05 Absolute Basophils 0.01 VBG Lactate 1.5 Sodium 141 Potassium 3.6 Chloride 103 Carbon Dioxide 30.7 Anion Gap 7.3 BUN 18 Creatinine 1.1 Est GFR (CKD-EPI 2020) 70.44 Glucose 104 Calcium 8.7 Magnesium 1.7 L Total Bilirubin 0.9 AST 29 ALT 16 Alkaline Phosphatase 93 Ammonia < 10 L Troponin I 14 NT-Pro-B Natriuret Pep 215 Total Protein 6.9 Albumin 3.9 Lipase 29 TSH 0.90 Cancelled Last Vital Signs Temp 37.6 C 08/31/24 13:55 Pulse 83 08/31/24 16:20 Resp 19 08/31/24 16:20 BP 103/52 L 08/31/24 16:16 Pulse Ox 94 08/31/24 16:20 Time Spent Time spent with Patient: 55-74 minutes Time was spent: preparing to see the patient(eg.review tests), obtaining and/or reviewing separately otained hiistory, ordering medications,tests, procedures, indepentently interpreting results and counseling the patient
--- NOTE | 2024-08-31 18:41 | W.PC.ACHO ---
Registration Status: ADM IN Primary Language: Preferred Language: Persian ED Information & Data Chief Complaint AMS/LOC 08/31/24 13:56 Chief Complaint AMS/LOC 08/31/24 13:17 Triage Note patient is unsteady on his 08/31/24 12:57 feet having slurred speech. state this morning he was feeling fine but when she came back home he had sudden chills and increased confusion. Medical / Surgical History (Last Reviewed 07/18/24 @ 13:12 by Samina Weber RN) Diabetes Palpitations History of degenerative joint disease History of onychomycosis Actinic keratoses Carpal tunnel syndrome Hx of colonic polyps Hearing loss Memory loss Hx of psoriasis Hx of sleep apnea (Last Reviewed 07/18/24 @ 13:12 by Samina Weber RN) Hx of right inguinal hernia repair (~08/2022) Hx of umbilical hernia repair (~08/2022) History of esophagogastroduodenoscopy (EGD) (~08/2022) History of knee replacement Status post total left knee replacement H/O vasectomy History of hernia repair Hx of colonoscopy (~04/2019) Most Recent Vital Signs Temperature 37.8 C H 08/31/24 17:30 Temperature Source Oral 08/31/24 13:55 Pulse 80 08/31/24 17:30 Pulse Rhythm Regular 08/31/24 17:30 Pulse 74 08/31/24 17:20 Respiratory Rate 19 08/31/24 17:30 Respiratory Effort Normal, Non-Labored 08/31/24 17:30 Respiratory Depth Normal 08/31/24 17:30 Respiratory Pattern Normal 08/31/24 17:30 Blood Pressure 110/68 08/31/24 17:30 Blood Pressure Mean 66 08/31/24 17:16 Blood Pressure Position Sitting 08/31/24 13:55 Pulse Oximetry 95 08/31/24 17:30 Oxygen Delivery Method Room Air 08/31/24 17:30 Oxygen Flow Rate 0 08/31/24 17:30 Pain Level 0 08/31/24 17:30 Allergies donepezil Adverse Reaction (Intermediate, Verified 08/31/24 13:05) Contraindicated patient has never taken this medication Precautions Isolation Standard precaution 08/31/24 13:56 Active Medications Generic Name Dose Route Start Last Admin Trade Name Freq PRN Reason Stop Dose Admin Sodium Chloride 50 ml 08/31/24 14:00 08/31/24 13:53 Normal Saline - Diluent 50 Ml Vial IJ 50 ml .FOR DI USE VERNA Administration IV IV Catheter Type [Right Saline Lock Antecubital] IV Catheter Gauge [Right 18 Antecubital] Diet Orders Category Date Time Status Regular/Normal [DIET] Nutrition 08/31/24 Dinner Active Diagnostics 08/31/24 08/31/24 08/31/24 Range/Units 14:01 13:19 13:19 WBC 6.80 (4.4-10.8) 10^3/uL RBC 4.51 (4.36-5.78) 10^6/uL Hgb 14.2 (13.5-17.5) g/dL Hct 41.0 (40.0-50.0) % MCV 91 (80-95) fL MCH 31.5 (27.0-33.0) pg MCHC 34.6 (32.0-36.0) % RDW 12.5 (11.8-14.1) % Plt Count 145 (130-400) 10^3/uL MPV 9.5 (8.0-11.0) fL Immature Gran % 0.1 % Neutrophils % 92.9 % Lymphocytes % 4.6 % Monocytes % 1.6 % Eosinophils % 0.7 % Basophils % 0.1 % Nucleated RBC % 0.0 (0.0-0.3) % Absolute Neutrophils 6.31 (1.2-6.7) 10^3/uL Absolute Lymphocytes 0.31 L (1.2-3.4) 10^3/uL Absolute Monocytes 0.11 (0.1-0.8) 10^3/uL Absolute Eosinophils 0.05 (0.0-0.7) 10^3/uL Absolute Basophils 0.01 (0.0-0.2) 10^3/uL VBG Lactate 1.5 (<or=2.0) mmol/L Sodium 141 (136-145) mmol/L Potassium 3.6 (3.5-5.1) mmol/L Chloride 103 (98-107) mmol/L Carbon Dioxide 30.7 (21.0-32.0) mmol/L Anion Gap 7.3 (3-11) mmol/L BUN 18 (7-18) mg/dL Creatinine 1.1 (0.70-1.30) mg/dL Est GFR (CKD-EPI 2020) 70.44 (mL/min/1.73m2) Glucose 104 (74-106) mg/dL Calcium 8.7 (8.5-10.1) mg/dL Magnesium 1.7 L (1.8-2.4) mg/dL Total Bilirubin 0.9 (0.2-1.0) mg/dL AST 29 (15-37) U/L ALT 16 (16-63) U/L Alkaline Phosphatase 93 (46-116) U/L Ammonia < 10 L (11-32) umol/L Troponin I 14 (<or=76) ng/L NT-Pro-B Natriuret Pep 215 (<300) pg/mL Total Protein 6.9 (6.4-8.2) g/dL Albumin 3.9 (3.4-5.0) g/dL Lipase 29 (<78) U/L TSH Cancelled 0.90 (0.36-3.74) uIU/mL B. divergens/MO-1 PCR Pending Babesia duncani (PCR) Pending Babesia microti DNA PCR Pending Lyme Disease Antibody Pending E.chaffeensis DNA (PCR) Pending E.ewingii/canis DNA PCR Pending E.muris eauclairensis (PCR) Pending A. phagocytophilum (PCR) Pending Blood B. miyamotoi (PCR) Pending Intake and Output - 24 Hour Total 08/31/24 12:52 thru 08/31/24 17:30 Weight 91.989 kg Other: Urine Appearance Clear Falls Risk Assessment History of Falls No History 08/31/24 17:30 Contributing Factors No Factors 08/31/24 17:30 Ambulatory Aids Independent 08/31/24 17:30 Tubes/Lines W/no contributing factors 08/31/24 17:30 Gait Evaluation W/no contributing factors 08/31/24 17:30 Cognition Cognitive impairment 08/31/24 17:30 Fall Total Score 35 08/31/24 17:30 Level of Risk Moderate Risk 08/31/24 17:30 Problems (Last Reviewed 07/18/24 @ 13:12 by Samina Weber RN) Essential hypertension (Chronic) Anxiety with depression (Acute) Obstructive sleep apnea (Chronic) Hyperlipidemia (Acute) Cerebrovascular accident (Chronic) Alzheimer's dementia (Acute) v v v v v v v v v Sending and/or Receiving Nurses: Please use comment section below to note any information pertinent to the patient hand-off not included above. Information / Comments: Paged at [phone], called for report at [phone]. 18 G R AC, no running fluids. No meds given in ED at the time report was called. Report received from: Mary Lopez ED RN
--- NOTE | 2024-08-31 19:26 | DI.[facility]AD_ITS ---
PROCEDURE INFORMATION: Exam: CT Head Without Contrast Exam date and time: 08/31/2024 7:16 PM Age: 74 years old Clinical indication: Other: R/O hemorrhage TECHNIQUE: Imaging protocol: Computed tomography of the head without contrast. Radiation optimization: All CT scans at this facility use at least one of these dose optimization techniques: automated exposure control; mA and/or kV adjustment per patient size (includes targeted exams where dose is matched to clinical indication); or iterative reconstruction. COMPARISON: CT BRAIN NECK CTA 08/31/2024 1:30 PM FINDINGS: Brain: Cerebral volume loss noted. Scattered areas of decreased attenuation in the deep periventricular white matter consistent with small vessel ischemic change. No evidence for acute intracranial hemorrhage. Cerebral ventricles: No ventriculomegaly. Paranasal sinuses: Visualized sinuses are unremarkable. No fluid levels. Mastoid air cells: Visualized mastoid air cells are well aerated. Bones: Unremarkable. No acute fracture. Soft tissues: Unremarkable. IMPRESSION: Senescent changes noted. No acute intracranial abnormality. Dictated and Authenticated by: Jenifer Jean Baptiste MD. Orderin Maik Reno MD
--- NOTE | 2024-08-31 19:30 | DI.CT_ITS ---
Exam(s) CT HEAD WO EXAM: CT HEAD WO CLINICAL HISTORY: r/o hemorrhage. TECHNIQUE: Imaging Protocol: Axial computed tomography images with coronal and sagittal reformatted images were created and reviewed COMPARISON: CT CT BRAIN NECK CTA from 08/31/2024 FINDINGS: Ventricles and Extra axial spaces: Normal in size and morphology for the patient's age. Hemorrhage: None. Cerebral parenchyma: No evidence of acute infarct or mass. Midline shift: None. Brainstem/Cerebellum: Normal. Calvarium: Normal. Visualized Paranasal sinuses:Clear. Mastoids: Clear. Soft Tissues: Unremarkable. ORBITS: Unremarkable. PITUITARY: Not enlarged. IMPRESSION: No acute intracranial process. The preliminary [facility] report was reviewed. RADIATION DOSE DELIVERED: 925.61mGy.cm Total DLP DATA REPOSITORY: All CT scans at this facility are submitted to the National Radiology Data Registry (NRDR) Dose Index Registry (DIR) with the [employer] (ACR). RADIATION OPTIMIZATION: All CT scans at this facility use at least one of these dose optimization techniques: automated exposure control; mA and/or kV adjustment per patient size (includes targeted exams where dose is matched to clinical indication); or iterative reconstruction.
[2024-08-31] MEDS: Atorvastatin 40 MG TAB 80 MG PO (19:47)
[2024-08-31] MEDS: Memantine 5 MG TAB 10 MG PO (19:48)
[2024-08-31] MEDS: Acetaminophen 500 MG TAB 1000 MG PO (23:11)
[2024-09-01 02:43] LABS: ALT 13 U/L (16-63); AST 22 U/L (15-37); Albumin 3.4 g/dL (3.4-5.0); Alkaline Phosphatase 81 U/L (46-116); Anion Gap 4.7 mmol/L (3-11); BUN 21 mg/dL (7-18); Bilirubin, Total 0.6 mg/dL (0.2-1.0); CO2 32.3 mmol/L (21.0-32.0); CREATININE 1.4 mg/dL (0.70-1.30); Calcium 8.3 mg/dL (8.5-10.1); Chloride 100 mmol/L (98-107); Estimated GFR 52.74 (mL/min/1.73m2); Glucose 107 mg/dL (74-106); HCT 36.9 % (40.0-50.0); HGB 13.2 g/dL (13.5-17.5); MCH 32.3 pg (27.0-33.0); MCHC 35.8 % (32.0-36.0); MCV 90 fL (80-95); MPV 9.9 fL (8.0-11.0); Platelet Count 141 10^3/uL (130-400); Potassium 3.1 mmol/L (3.5-5.1); RBC 4.09 10^6/uL (4.36-5.78); RDW 12.6 % (11.8-14.1); RDW-SD 41.2 fL; Sodium 137 mmol/L (136-145); WBC 10.41 10^3/uL (4.4-10.8)
[2024-09-01 02:44] VITALS: BP 100/55; PULSE 54; RESP 19; TEMP 37.1; O2SAT 92
[2024-09-01 07:47] VITALS: BP 110/59; PULSE 54; RESP 17; TEMP 35.9; O2SAT 95
--- NOTE | 2024-09-01 08:00 | DI.MRI_ITS ---
Exam(s) MR BRAIN WO EXAM: MR BRAIN WO CLINICAL HISTORY: CVA TECHNIQUE: Multiplanar multisequence MRI of the brain was performed. COMPARISON: MR MR BRAIN WO from 06/02/[address] HEAD WO from 08/31/2024 FINDINGS: VENTRICLES AND EXTRA AXIAL SPACES: Normal in size and morphology for the patient's age. MIDLINE SHIFT: None. CEREBRAL PARENCHYMA: No focus of restricted diffusion to suggest acute infarct. No space-occupying lesion identified. Mild atrophy consistent with the patient's age. No significant white matter changes. BRAINSTEM/CEREBELLUM: Normal. VISUALIZED PARANASAL SINUSES: Clear. MASTOIDS:Clear. Vasculature: Normal flow void. PITUITARY GLAND: Unremarkable. ORBITS: Unremarkable. IMPRESSION: Mild atrophy, otherwise unremarkable MRI of the brain. DATA REPOSITORY:
[2024-09-01] MEDS: Memantine 5 MG TAB 10 MG PO ×2 (08:19→20:17)
[2024-09-01] MEDS: Sertraline 100 MG TAB 200 MG PO (08:20)
--- NOTE | 2024-09-01 09:51 | PT.INIE ---
PT Notes Visit Reasons: Cerebrovascular accident Physical Therapy Inpatient Initial Evaluation Date: 09/01/2024 Referring Doctor: Shadia Pleitez NP PT Orders: PT CONSULT: PT eval and treat Precautions: Standard, hard of hearing, CPAP at night Patient Profile/Admitting Diagnosis: Nicholas is a 74-year-old male presented to the emergency department with unsteadiness, difficulty speaking on 08/31/2024. Initial head CT showed small hypodense area left lateral ventricle. Teleneuro recommended repeat CT 6 hours after which showed negative acute intracranial processes. Patient was admitted for MRI which was completed and showed mild atrophy with no intracranial processes. Carotid study showed 3 mm dissection at the left carotid bulb which teleneuro felt was not contributory. PMHX: Essential hypertension (Chronic) Anxiety with depression (Acute) Obstructive sleep apnea (Chronic) Hyperlipidemia (Acute) Cerebrovascular accident (Chronic) Cerumen impaction (Acute) Actinic keratosis (Acute) Advanced care planning/counseling discussion (Acute) Palliative care patient (Acute) Alzheimer's dementia (Acute) Diagnosis January 2023 [facility] [place] memory clinic: Early stage/late onset Alzheimer's dementiaBilateral hearing loss due to cerumen impaction (Acute) Skin lesion (Acute) Recurrent right inguinal hernia (Acute) Diverticula of colon (Acute) sigmoid- minor Dx CE 09/01Change in bowel function (Acute) Constipation (Acute) Hiatal hernia (Chronic) Poor appetite (Acute) Unexplained weight loss (Acute) Hiatal hernia with GERD (Acute) Regurgitation of stomach contents (Acute) Coronary artery calcification seen on CAT scan (Acute) Umbilical hernia (Acute) Trochanteric bursitis, right hip (Acute) Musculoskeletal pain (Acute) Seborrheic dermatitis of scalp (Acute) Abdominal pain (Acute) History of total right knee replacement (Acute 07/26/21) DOS 07/26/21Squamous cell carcinoma in situ (SCCIS) (Acute) Rosacea (Acute) Restless leg syndrome (Acute) Impacted cerumen of both ears (Acute) Neoplasm of skin (Acute 06/30/13) Primary osteoarthritis of right knee (Acute 09/26/17) Injection: 08/12/2018Sensorineural hearing loss, bilateral (Acute 07/01/13) 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) Tinnitus (Acute 07/01/13) Medical History Diabetes Per deniesPalpitations Per pt. states he has not had palpatations for yearsHistory of degenerative joint disease History of onychomycosis Actinic keratoses Hyperlipidemia Carpal tunnel syndrome Hx of colonic polyps Obstructive sleep apnea Hearing loss Anxiety with depression Essential hypertension Memory loss Hx of psoriasis Hx of sleep apnea uses CPAP Surgical History Hx of right inguinal hernia repair (~08/2022) Hx of umbilical hernia repair (~08/2022) History of esophagogastroduodenoscopy (EGD) (~08/2022) History of knee replacement Status post total left knee replacement H/O vasectomy History of hernia repair Hx of colonoscopy (~04/2019) [place] - Tubular adenoma x4. Social History/Home Situation: patient resides with in single-family home with 3 steps to enter. Patient independent without assistive device. provides cueing at times as needed due to Alzheimer's disease. Patient independent showering Equipment Owned/DME: No device Subjective: Patient's reports he tinkers at home around the house. Patient reports he feels well and unaware of any changes that happened yesterday. reports they have shower stall Objective: [] General Observation: Male seated in chair with earplugs bilateral after returning from MRI. Patient declined to remove earplugs Mental Status:A+ oriented to person. Patient knows he is in a hospital. Unable to state date or circumstance. Patient able to follow multistep directions. Agreeable to participate in eval Pain: Denies ROM: [] Right Upper Extremity: WNL Left Upper Extremity: WNL Right Lower Extremity: WNL Left Lower Extremity: WNL Strength: [] Right Upper Extremity: 5/5 Left Upper Extremity: 5/5 Right Lower Extremity: 5/5 Left Lower Extremity: Hip 4/5 knee and ankle 5/5 Sensation: Intact light touch Coordination: Rapid alternating movements and [id number] bilateral upper extremity WNL, [id number] and toe tapping WNL Bed Mobility/Transfers: [] Supine to sit independent Sit to stand independent Stand to sit independent Bed to chair independent Gait: Ambulated 350 feet without assistive device multidirectional changes level surfaces independent Stairs: Two 6 inch steps and three 4 inch steps x 2 trials without assistive device or rails independently Balance: [] Static Sitting: Normal Dynamic Sitting: Normal Static Standing: Normal Dynamic Standing: Good plus Special Tests: [] Mobility Limitations Standardized Measure [] [facility] AM-PAC 6 clicks Basic Mobility Inpatient Short Form: [] Raw Score: 24 CMS Score: 0% Informed Consent/Education: Patient instructed in purpose of PT consult. Assessment: Nicholas is a 74-year-old male who presented to ED with unsteadiness. Pt demonstrates impaired single limb LLE balance with noted slightly reduced strength left hip. Despite these impairments, pt is independent without device for all mobility including stairs and ambulation. Pt demonstrates no LOB during ambulation including directional changes and surface changes. Pt safe to return home with his with no further skilled PT indicated at this time.Discussed with and pt possibility of outpatient PT in the future if any change in balance during functional activities occurs. Patient is assessed as a moderate complexity based on the following: History: 74-year-old male with impairment level findings, and past medical history as indicated above Examination: as documented above Presentation: Evolving/stable Decision Making: Moderate Goals: N/A. PT evaluation Plan of Care/Treatment Plan: N/A. PT evaluation DISCHARGE RECOMMENDATIONS: Home with no further PT interventions indicated. TREATMENT CODE/TIME: 84037/ [id number] Thank you for the opportunity to participate in the care of this patient. Ximena Marcus, PT [facility]
--- NOTE | 2024-09-01 10:02 | PGE_ITS ---
Date of Service Date of service: 09/01/24 Time of Service: 10:02 Assessment and Plan Assessment and plan (1) Cerebrovascular accident: Status: Chronic Assessment and plan: Neurologically without but was admitted admitted to med/surg for CVA workup teleneuro consult repeat CT scan negative for bleeding stroke work up: Ongoing telemetry telemetry, echocardiogram showed no no significant valve disease , LV EF of 60%, normal RV function Ongoing permissive HTN, Lipid panels: Cholesterol 203; LDL 119 A1C pending Continue high dose statin, Continue asa, plavix after bleed ruled out. MRI negative for acute findings DVT prophylaxis: Initiate Lovenox (2) Hyperlipidemia: Status: Acute Assessment and plan: As above (3) JOVANNI (acute kidney injury): Status: Acute Assessment and plan: Creatinine trending to 1.4 LR at 75 cc an hour Labs in the morning going (4) Essential hypertension: Status: Chronic Assessment and plan: allow for permissive HTN hold HCTZ routine monitoring (5) Obstructive sleep apnea: Status: Chronic Assessment and plan: home cpap (6) Alzheimer's dementia: Status: Acute Assessment and plan: Maintain safety precautions Ongoing home medication (7) Fever: Status: Acute Assessment and plan: Tmax 38 then temperature 35.9 Blood cultures pending UA pending Tick borne disease panel pending No leukocytosis with WBC from 6-10 today (8) Anxiety with depression: Status: Acute Assessment and plan: Ongoing home medication discussed with DR Bellamy Subjective Subjective Patient reports: no new complaints, feels better, tolerating liquids well, tolerating a regular diet, voiding w/o difficulty and afebrile; denies still having pain, diarrhea, nausea, vomiting or shortness of breath Exam Narrative Exam Narrative: 74-year-old male without acute distress, no focal neurodeficit cranial nerves II to XII intact, ongoing memory impairment due to Alzheimer dementia diagnosed 2 years ago, clear lungs unlabored breathing, S1-S2, regular pulses are positive to all 4 extremities, abdomen is nondistended soft nontender and bowel sounds are present ; no CVA tenderness Objective Last Vital Signs Temp 35.9 C L 09/01/24 07:47 Pulse 54 L 09/01/24 07:47 Resp 17 09/01/24 07:47 BP 110/59 L 09/01/24 07:47 Pulse Ox 95 09/01/24 07:47 Laboratory Results - last 24 hr 08/31/24 08/31/24 08/31/24 13:19 13:19 14:01 WBC 6.80 RBC 4.51 Hgb 14.2 Hct 41.0 MCV 91 MCH 31.5 MCHC 34.6 RDW 12.5 Plt Count 145 MPV 9.5 Immature Gran % 0.1 Neutrophils % 92.9 Lymphocytes % 4.6 Monocytes % 1.6 Eosinophils % 0.7 Basophils % 0.1 Nucleated RBC % 0.0 Absolute Neutrophils 6.31 Absolute Lymphocytes 0.31 L Absolute Monocytes 0.11 Absolute Eosinophils 0.05 Absolute Basophils 0.01 VBG Lactate 1.5 Sodium 141 Potassium 3.6 Chloride 103 Carbon Dioxide 30.7 Anion Gap 7.3 BUN 18 Creatinine 1.1 Est GFR (CKD-EPI 2020) 70.44 Glucose 104 Calcium 8.7 Magnesium 1.7 L Total Bilirubin 0.9 AST 29 ALT 16 Alkaline Phosphatase 93 Ammonia < 10 L Troponin I 14 NT-Pro-B Natriuret Pep 215 Total Protein 6.9 Albumin 3.9 Lipase 29 TSH 0.90 Cancelled 09/01/24 02:15 WBC 10.41 RBC 4.09 L Hgb 13.2 L Hct 36.9 L MCV 90 MCH 32.3 MCHC 35.8 RDW 12.6 Plt Count 141 MPV 9.9 Immature Gran % Neutrophils % Lymphocytes % Monocytes % Eosinophils % Basophils % Nucleated RBC % Absolute Neutrophils Absolute Lymphocytes Absolute Monocytes Absolute Eosinophils Absolute Basophils VBG Lactate Sodium 137 Potassium 3.1 L Chloride 100 Carbon Dioxide 32.3 H Anion Gap 4.7 BUN 21 H Creatinine 1.4 H Est GFR (CKD-EPI 2020) 52.74 Glucose 107 H Calcium 8.3 L Magnesium Total Bilirubin 0.6 AST 22 ALT 13 L Alkaline Phosphatase 81 Ammonia Troponin I NT-Pro-B Natriuret Pep Total Protein 6.0 L Albumin 3.4 Lipase TSH Time Spent with Patient Time Spent with Patient: >50 minutes Time was spent: preparing to see the patient(eg.review tests), obtaining and/or reviewing separately otained hiistory, ordering medications,tests, procedures, referring, communicating with other health memory care director, indepentently interpreting results, counseling the patient and care coordination
[2024-09-01] MEDS: Potassium Chloride 20 MEQ TABCR 40 MEQ PO (10:54)
[2024-09-01] MEDS: POTASSIUM CHLORIDE 20 MEQ/100 ML BAG 50 MEQ IV_INF (10:54)
[2024-09-01] MEDS: Normal Saline Flush 10 ML SYR IVP (10:54)
[2024-09-01 11:22] VITALS: BP 105/80; PULSE 68; RESP 16; TEMP 36.8; O2SAT 94
[2024-09-01] MEDS: Lactated Ringers 1,000 ML 75 ML IV (13:20)
[2024-09-01 15:15] LABS: Magnesium 1.9 mg/dL (1.8-2.4)
[2024-09-01 16:20] VITALS: BP 122/70; PULSE 61; RESP 17; TEMP 36.6; O2SAT 98
--- NOTE | 2024-09-01 16:24 | PDOC.CMIN ---
Date of service: 09/01/24 Time of Service: 16:24 Care Management Initial Assmt Initial Assessment Reason for Hospitalization: CVA Functional Status/Living Situation Patient Presentation: Nicholas was lying in bed when CM met with him. He was alert, pleasant, and engaged in conversation; he appeared to be oriented to self. He reported that he lives in [place] with his , Monserrat. They have three children; two daughters (Dianne and Jolanta), who live in [place], and a son, Fabian, who lives in [place] as well. 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 His worked at [employer] before she retired. Per report, he had an MRI this morning which was negative; BC are pending. He was cleared by PT- no home services needed. He reported that he is independent and does not need assistance with mobility. CM will continue to follow. Town of Residence: [place] Resides with: Spouse Significant Other/Family: Local Natural Supports: , Monserrat three children, Dianne, Jolanta and Fabian Employment Status: Retired Instrumental Activities of Daily Living (ADLs): Independent Medications Medication Management: No Issues/Barriers identified Physical Functioning/Mobility Assistive Device: none Advance Directives Advance Directives: Do you have an Advance Directive: Y 07/27/21, 07:18 AD On File at [facility]: Y 07/27/21, 07:18 Date Asked 07/27/21 07/27/21, 07:18 AD Date Reviewed 08/31/24 08/31/24, 17:27 COLST On File at [facility] COLST Date Scanned Code Status Resuscitation Status Full Code Insurance Coverage/Financial Issues Insurance: [facility]/BS Care Team Visit Care Team Role Provider Type Denisha Monk APRN MD [facility] STAFF PHYSICIAN Giorgi Green MD Primary Care Provider NON-[facility] STAFF PHYSICIAN Diane Lorenzo Other Providers OTHER Ester Casper NP Emergency Provider NURSE PRACTITIONER Fer Bellamy Admit Provider [facility] STAFF PHYSICIAN Attending Provider Discharge Potential Discharge Needs: PCP F/U Appt Anticipated Barriers to Discharge: None Identified Patient/Family Education Needs: Review discharge instructions, discuss Ask Me Three Transportation: Private vehicle Plan: Anticipate Nicholas will return home once medically cleared. His will drive him home via private vehicle. He will follow up with his PCP and discharge plan of care. CM will continue to follow. Social Determinants of Health Screening Social Determinants of health last assessed in clinic: 09/01/24 Will the Patient Participate in the Screening?: Yes Do you worry about having a steady place to live?: no Problems where you live: no known problems In the past 12 months, have you had to go without electric, gas, oil or water in your home?: no 1. Within the past 12 months, we worried whether our food would run out before we got money to buy more.: Don't know/refused 2. Within the past 12 months, the food we bought just didn't last and we didn't have money to get more.: Don't know/refused Has lack of transportation kept you from medical appointments or from doing things needed for daily living?: no Has anyone in your life made you feel unsafe or unsupported?: no How hard is it for you to pay for the very basics like food, housing, medical care, and heating? Would you say it is:: Not hard at all Do you want help finding or keeping work or a job?: I do not need or want help If for any reason you need help with day-to-day activities such as bathing, preparing meals, shopping, managing finances, etc., do you get the help you need?: I get all the help I need How often do you feel lonely or isolated from those around you?: Never Do you speak a language other than German at home?: No Does the patient want assistance with any of the above?: No PFSH All Active Problems (Updated 09/01/24 @ 14:54 by Denisha Monk APRN) JOVANNI (acute kidney injury) (Acute) Essential hypertension (Chronic) Anxiety with depression (Acute) Obstructive sleep apnea (Chronic) Hyperlipidemia (Acute) Cerebrovascular accident (Chronic) Cerumen impaction (Acute) Actinic keratosis (Acute) Advanced care planning/counseling discussion (Acute) Palliative care patient (Acute) Alzheimer's dementia (Acute) Diagnosis January 2023 [facility] memory clinic: Early stage/late onset Alzheimer's dementia Bilateral hearing loss due to cerumen impaction (Acute) Skin lesion (Acute) Recurrent right inguinal hernia (Acute) Diverticula of colon (Acute) sigmoid- minor Dx CE 09/01 Change in bowel function (Acute) Constipation (Acute) Hiatal hernia (Chronic) Poor appetite (Acute) Unexplained weight loss (Acute) Hiatal hernia with GERD (Acute) Regurgitation of stomach contents (Acute) Coronary artery calcification seen on CAT scan (Acute) Umbilical hernia (Acute) Trochanteric bursitis, right hip (Acute) Musculoskeletal pain (Acute) Seborrheic dermatitis of scalp (Acute) Abdominal pain (Acute) History of total right knee replacement (Acute 07/26/21) DOS 07/26/21 Squamous cell carcinoma in situ (SCCIS) (Acute) Rosacea (Acute) Restless leg syndrome (Acute) Impacted cerumen of both ears (Acute) Neoplasm of skin (Acute 06/30/13) Primary osteoarthritis of right knee (Acute 09/26/17) Injection: 08/12/2018 Sensorineural hearing loss, bilateral (Acute 07/01/13) 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 states he has not had palpatations for years History of degenerative joint disease History of onychomycosis Actinic keratoses Hyperlipidemia Carpal tunnel syndrome Hx of colonic polyps Obstructive sleep apnea Hearing loss Anxiety with depression Essential hypertension Memory loss Hx of psoriasis Hx of sleep apnea uses CPAP Surgical History Hx of right inguinal hernia repair (~08/2022) Hx of umbilical hernia repair (~08/2022) History of esophagogastroduodenoscopy (EGD) (~08/2022) History of knee replacement Status post total left knee replacement H/O vasectomy History of hernia repair Hx of colonoscopy (~04/2019) [place] - Tubular adenoma x4. Social History Smoking/Tobacco Use Status: Former Tobacco Use Quit Date: 03/12/80 Smoking risk assessment performed?: Yes Alcohol Intake: former Drug use: Never Substance use type: does not use Household members: spouse Housing: house Number of Children: 3 number of grandchildren: 0 Pets and animals: Yes Pets and animals: dog(s) Current gender identity: male What is your relationship status?: Panel score (0-1 are the most socially isolated patients): 1 What type of physical activity do you participate in: walking Seatbelt use: always Do you feel safe at home: No (HERBERT) Additional Social history: 07/18/24: HERBERT
[2024-09-01 19:59] VITALS: BP 125/62; PULSE 50; RESP 20; TEMP 37; O2SAT 95
[2024-09-01] MEDS: Atorvastatin 40 MG TAB 80 MG PO (20:17)
[2024-09-01 23:16] VITALS: BP 120/66; PULSE 57; RESP 20; TEMP 36.7; O2SAT 96
[2024-09-01 23:40] LABS: Bilirubin Negative (Negative); Blood Negative (Negative); Clarity Clear (Clear); Glucose Negative (Negative); Ketones Negative (Negative); Leukocyte Esterase Negative (Negative); Nitrite Negative (Negative); Specific Gravity 1.015 (1.005-1.025)
[2024-09-02] MEDS: Lactated Ringers 1,000 ML 75 ML IV (02:18)
[2024-09-02 07:15] LABS: BUN 17 mg/dL (7-18); Calcium 8.4 mg/dL (8.5-10.1); Chloride 105 mmol/L (98-107); Estimated GFR 78.98 (mL/min/1.73m2); Glucose 99 mg/dL (74-106); Magnesium 2.1 mg/dL (1.8-2.4); Potassium 3.6 mmol/L (3.5-5.1); Sodium 141 mmol/L (136-145)
[2024-09-02 07:24] VITALS: BP 111/59; PULSE 42; RESP 17; TEMP 36; O2SAT 95
[2024-09-02 07:32] LABS: Hemoglobin A1C 5.4 % (<5.7)
[2024-09-02] MEDS: Sertraline 100 MG TAB 200 MG PO (08:51)
[2024-09-02] MEDS: Aspirin E.C. 81 MG TABEC PO (08:51)
[2024-09-02] MEDS: Clopidogrel 75 MG TAB PO (08:51)
[2024-09-02] MEDS: Memantine 5 MG TAB 10 MG PO (08:51)
--- NOTE | 2024-09-02 11:18 | DSE_ITS ---
Date of service: 09/02/24 Time of Service: 11:18 DS: Diagnosis Discharge Diagnosis (1) Cerebrovascular accident: Status: Chronic (2) Hyperlipidemia: Status: Acute (3) JOVANNI (acute kidney injury): Status: Acute (4) Essential hypertension: Status: Chronic (5) Obstructive sleep apnea: Status: Chronic (6) Alzheimer's dementia: Status: Acute (7) Fever: Status: Acute (8) Anxiety with depression: Status: Acute Discharge Plan Disposition Patient Disposition: Home Condition: Improving Discharge Details Reason For Visit: CVA Admit Date/Time: 08/31/24 16:40 Admit Provider: Fer Bellamy Attending Provider: Fer Bellamy Primary Care Provider: Giorgi Green Hospital Course Hospital Course: This 74 years old patient with a PMHx of Alzheimer's Disease , TBI at 2 years of age, diabetes, palpitations, hyperlipidemia, hypertension, palliative care patient, presented to ED on 08/31/24 with sudden onset of shaking , gait instability and difficulty with speech. His workup in the emergency department included a CAT scan which did show a small hypodense area in the left lateral ventricle a small focus of hemorrhage could not be excluded. The patient was admitted for stroke work-up by the hospitalist team to the medical surgical floor with telemetry. 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 The patient was started on ASA, plavix and increased lipitor dosing. Brain MRI was negative for acute findings. Echocardiogram showed a LVEF of 60% w/o segmental wall motion abnormality, normal RV size and function w/o significant valve disease. fever resolved and blood cultures were negative at 24 hours, UA specimen collected late and results were pending. The patient was hemodynamically stable. JOVANNI with Cr at 1.4 treated with IV hydration ; Cr down to 1.0 around baseline.The patient will be discharged home with neurology, and vascular surgery referral and follow-up with PCP within 7 days of discharge. Recommendation for PCP follow-up: Follow-up on UA results please Lipid panel Neurology referral Vascular surgery referral discussed with Dr. Bellamy Home Meds and New Rx's Prescriptions: New atorvastatin 40 mg Tablet 80 mg PO HS Qty: 60 0RF clopidogrel 75 mg Tablet 75 mg PO DAILY Qty: 19 0RF aspirin 81 mg Tablet,Delayed Release (Dr/Ec) 81 mg PO DAILY Qty: 30 0RF Continued cholecalciferol (vitamin D3) 50 mcg (2,000 unit) capsule 50 mcg PO DAILY Patient Comments: takes in winter metronidazole 0.75 % gel 1 applic topical BID 30 Days Qty: 45 2RF acetaminophen 500 mg tablet 1,000 mg PO Q8H PRN (Reason: pain) Qty: 90 3RF sertraline 100 mg tablet 200 mg PO DAILY hydrochlorothiazide 12.5 mg tablet 12.5 mg PO DAILY Patient Comments: TAKE ONE TABLET BY MOUTH EVERY MORNING memantine 10 mg tablet 10 mg PO BID Patient Comments: TAKE ONE TABLET BY MOUTH TWICE A DAY Discontinued atorvastatin [Lipitor] 40 mg tablet 40 mg PO QHS Discharge Instructions Referrals: [facility] [OTHER, Surgery] Referral Note: CTA neck done on 08/31/24: There is a very short segment small dissection at the posterior aspect of the junction of the carotid bulb and internal carotid artery (series 8, image 87) and (series 28, image 73). It measures 3-4 mm in length. Giorgi Green MD [Primary Care Provider, Medicine] Referral Note: Follow-up with PCP within 7 days of discharge Feli Mazariegos MD [ [facility] STAFF PHYSICIAN, Neurology] Referral Note: TIA Activity:: Activity as Tolerated Equipment/Supplies:: No Equipment Needed Diet:: heart healthy Discharge Orders Discharge Orders: Discharge Order (Routine); Ordered 09/02/24 Ordered By: Denisha Monk DS: Summary Time Spent with Patient providing and/or coordinating discharge services: Greater than 30 minutes Status at Discharge Functional status at discharge: independent ambulation Overall status at discharge: patient is progressing back to baseline Mental Status: mental status grossly normal Speech and Movement: speech and movement normal Mood: congruent mood Affect: normal affect Exam Narrative Exam Narrative: 74-year-old male without acute distress, no focal neurological deficit , ongoing memory impairment due to Alzheimer dementia diagnosed 2 years ago, clear lungs- unlabored breathing, S1-S2, regular , abdomen is nondistended soft nontender and bowel sounds are present Psych Mental Status: mental status grossly normal Speech and Movement: speech and movement normal Mood: congruent mood Affect: normal affect DS: Data Vitals/I&O Vitals and I&O: Vital Signs Temperature 36.0 C L 06/24/25 07:24 Temperature Source Temporal Artery Scan 09/02/24 07:24 Pulse 42 L 09/02/24 07:24 Pulse Rhythm Regular 08/31/24 17:30 Pulse 74 08/31/24 17:20 Respiratory Rate 17 09/02/24 07:24 Respiratory Effort Normal, Non-Labored 08/31/24 17:30 Respiratory Depth Normal 08/31/24 17:30 Respiratory Pattern Normal 08/31/24 17:30 Blood Pressure 111/59 L 09/02/24 07:24 Blood Pressure Mean 76 09/02/24 07:24 Blood Pressure Position Sitting 08/31/24 13:55 Pulse Oximetry 95 09/02/24 07:24 Oxygen Delivery Method Room Air 09/02/24 07:24 Oxygen Flow Rate 0 09/02/24 07:24 Pain Level 0 09/02/24 07:24 Intake & Output 09/01/24 09/01/24 09/02/24 11:59 23:59 11:59 Intake Total 20 / 460 440 / 460 1312.5 / 1312.5 Output Total 450 / 450 200 / 200 Balance 10 - 1112.5 / 1112.5 Intake: IV 100 / 100 972.5 / 972.5 Oral 20 / 360 340 / 360 340 / 340 Output: Urine 450 / 450 200 / 200 Other: Urine Color Straw Yellow Urine Appearance Clear Clear Urine Odor Normal Comment incontinent episode at change of shift Stool Size Small Stool Characteristics Soft Formed Data Completed and Pending Labs on day of discharge: Labs from last 24 hours 09/02/24 09/01/24 09/01/24 06:33 23:30 06:00 Sodium 141 Potassium 3.6 Chloride 105 Carbon Dioxide 29.0 Anion Gap 7.0 BUN 17 Creatinine 1.0 Est GFR (CKD-EPI 2020) 78.98 Glucose 99 Hemoglobin A1c 5.4 Calcium 8.4 L Magnesium 2.1 1.9 Urine Color Yellow Urine Clarity Clear Urine pH 7.0 Ur Specific [place] 1.015 Urine Protein Negative Urine Ketones Negative Urine Blood Negative Urine Nitrite Negative Urine Bilirubin Negative Urine Urobilinogen 1.0 H Ur Leukocyte Esterase Negative Urine Glucose Negative 09/01/24 23:30 Urine - Voided Urine Culture - Pending Preliminary micro results at discharge 09/01/24 02:15 Blood Blood Culture - Preliminary NO GROWTH 24 HOURS 09/01/24 02:00 Blood Blood Culture - Preliminary NO GROWTH 24 HOURS 09/01/24 23:30 Urine - Voided Urine Culture - Pending [facility] All Active Problems (Updated 09/01/24 @ 20:06 by Denisha Monk APRN) Fever (Acute) JOVANNI (acute kidney injury) (Acute) Essential hypertension (Chronic) Anxiety with depression (Acute) Obstructive sleep apnea (Chronic) Hyperlipidemia (Acute) Cerebrovascular accident (Chronic) Cerumen impaction (Acute) Actinic keratosis (Acute) Advanced care planning/counseling discussion (Acute) Palliative care patient (Acute) Alzheimer's dementia (Acute) Diagnosis January 2023 [facility] memory clinic: Early stage/late onset Alzheimer's dementia Bilateral hearing loss due to cerumen impaction (Acute) Skin lesion (Acute) Recurrent right inguinal hernia (Acute) Diverticula of colon (Acute) sigmoid- minor Dx CE 09/01 Change in bowel function (Acute) Constipation (Acute) Hiatal hernia (Chronic) Poor appetite (Acute) Unexplained weight loss (Acute) Hiatal hernia with GERD (Acute) Regurgitation of stomach contents (Acute) Coronary artery calcification seen on CAT scan (Acute) Umbilical hernia (Acute) Trochanteric bursitis, right hip (Acute) Musculoskeletal pain (Acute) Seborrheic dermatitis of scalp (Acute) Abdominal pain (Acute) History of total right knee replacement (Acute 07/26/21) DOS 07/26/21 Squamous cell carcinoma in situ (SCCIS) (Acute) Rosacea (Acute) Restless leg syndrome (Acute) Impacted cerumen of both ears (Acute) Neoplasm of skin (Acute 06/30/13) Primary osteoarthritis of right knee (Acute 09/26/17) Injection: 08/12/2018 Sensorineural hearing loss, bilateral (Acute 07/01/13) 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 states he has not had palpatations for years History of degenerative joint disease History of onychomycosis Actinic keratoses Hyperlipidemia Carpal tunnel syndrome Hx of colonic polyps Obstructive sleep apnea Hearing loss Anxiety with depression Essential hypertension Memory loss Hx of psoriasis Hx of sleep apnea uses CPAP Surgical History Hx of right inguinal hernia repair (~08/2022) Hx of umbilical hernia repair (~08/2022) History of esophagogastroduodenoscopy (EGD) (~08/2022) History of knee replacement Status post total left knee replacement H/O vasectomy History of hernia repair Hx of colonoscopy (~04/2019) [place] - Tubular adenoma x4. Social History Smoking/Tobacco Use Status: Former Tobacco Use Quit Date: 03/12/80 Smoking risk assessment performed?: Yes Alcohol Intake: former Drug use: Never Substance use type: does not use Household members: spouse Housing: house Number of Children: 3 number of grandchildren: 0 Pets and animals: Yes Pets and animals: dog(s) Current gender identity: male What is your relationship status?: Panel score (0-1 are the most socially isolated patients): 1 What type of physical activity do you participate in: walking Seatbelt use: always Do you feel safe at home: No (UTAP) Additional Social history: 07/18/24: UTAP Time Spent with Patient Time Spent with Patient: 70-84 minutes4 Time was spent: preparing to see the patient(eg.review tests), obtaining and/or reviewing separately otained hiistory, ordering medications,tests, procedures, referring, communicating with other health childcare director, indepentently interpreting results, counseling the patient and care coordination
--- NOTE | 2024-09-02 14:25 | PDOC.CMDIS ---
Date of service: 09/02/24 Time of Service: 14:25 LACE Index Scoring Tool Questions: Length of Stay (in days): 2 Was the patient admitted via the E.D.?: Yes Comorbidities: Cerebrovascular Disease and Dementia E.D. Visits: 0 Answers: Total Score: 10 Risk of Readmission: High Risk Care Management Discharge Plan Reason for Hospitalization: CVA Discharge Plan: Nicholas returned home today with no new services. His drove him home via private vehicle. He will follow up with his PCP and discharge plan of care. He is happy to be going home. Patient/Family Education Needs: Review discharge instructions and limitations, discussion of self care needs including ask me three.
[2024-09-02 15:00] LABS: Lyme Ab w Rflx to Lyme Confirm Negative (Negative)
--- NOTE | 2024-09-02 16:46 | CHAPLAIN ---
I visited with Nicholas and his Monserrat this morning. Nicholas was up in the chair, very pleasant and easily engaged in a conversation. They told me about recently moving into town where [place] a [place] in [place] for the past nine years after moving here from [place]. 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 Nicholas said he expects to be discharged later today. I know Monserrat from the [employer], where she had my daughter as a student.
[2024-09-04 00:24] LABS: Anaplasma phagocytophilum Negative (Negative); B. miyamotoi PCR Negative (Negative); Babesia divergens/MO-1 Negative (Negative); Babesia duncani Negative (Negative); Babesia microti Negative (Negative); Ehrlichia chaffeensis Negative (Negative); Ehrlichia ewingii/canis Negative (Negative); Ehrlichia muris eauclairensis Negative (Negative)
== END 2024-09-02 13:36 | disposition home or self-care (01) | DRG 64 ==
LOC: ER 16:25 → MS 17:27
PROVIDERS: Nurse Practitioner Acute Care; Physician Assistant; Admitting Provider Family Medicine; Emergency Provider Registered Nurse Emergency; PCP Family Medicine; Responsible Provider Nurse Practitioner Acute Care; Visit Provider Family Medicine
DX: I10 Essential (primary) hypertension; E78.5 Hyperlipidemia, unspecified; G47.33 Obstructive sleep apnea (adult) (pediatric); F41.8 Other specified anxiety disorders; N17.9 Acute kidney failure, unspecified; R50.9 Fever, unspecified; I77.71 Dissection of carotid artery; R47.1 Dysarthria and anarthria; R26.89 Other abnormalities of gait and mobility; G30.1 Alzheimer's disease with late onset; F02.A0 Dementia in other diseases classified elsewhere, mild, without behavioral disturbance, psychotic disturbance, mood disturbance, and anxiety; H61.23 Impacted cerumen, bilateral; K59.00 Constipation, unspecified; K44.9 Diaphragmatic hernia without obstruction or gangrene; G25.81 Restless legs syndrome; I25.10 Atherosclerotic heart disease of native coronary artery without angina pectoris; K21.9 Gastro-esophageal reflux disease without esophagitis; H90.3 Sensorineural hearing loss, bilateral; Z96.652 Presence of left artificial knee joint; I63.89 Other cerebral infarction
CPT/HCPCS: 00123; 36415; 70496; 70498; 80048; 80053; 83690; 85027; 87040; 87798; 93005; 97162; 99285; 70450; 70551; 71045; 81003; 82140; 83036; 83605; 83735; 83880; 84443; 84484; 85025; 86618; 87086; 93010; 93306; 99223; 99233; 99239; J3480; J3490

== ENCOUNTER 2024-09-10 21:11 | Outpatient (REF) | payer MEDICARE, BC, SELFPAY ==
[2024-09-10 21:19] LABS: Magnesium 2.3 mg/dL (1.8-2.4); Potassium 3.9 mmol/L (3.5-5.1)
== END 2024-09-10 21:12 | disposition home or self-care (01) ==
LOC: NCHCN 21:11
PROVIDERS: PCP Family Medicine; Visit Provider Family Medicine
DX: I10 Essential (primary) hypertension (principal)
CPT/HCPCS: 83735; 84132

== ENCOUNTER → 2024-09-15 10:02 | Outpatient (BNVA) | payer MEDICARE, BC, SELFPAY | PROVIDERS: PCP Family Medicine; Referring Provider Family Medicine; Visit Provider Psychiatry & Neurology Neurology | DX: I77.71 Dissection of carotid artery (principal); G30.9 Alzheimer's disease, unspecified; F02.80 Dementia in other diseases classified elsewhere, unspecified severity, without behavioral disturbance, psychotic disturbance, mood disturbance, and anxiety; I63.9 Cerebral infarction, unspecified; E11.59 Type 2 diabetes mellitus with other circulatory complications; I10 Essential (primary) hypertension | CPT/HCPCS: 99215 ==

== ENCOUNTER 2024-10-13 09:58 | Outpatient (CLI) | payer MEDICARE, BC, SELFPAY | END 2024-10-13 09:59 | disposition home or self-care (01) | LOC: CARDOPNVT 09:58 | PROVIDERS: PCP Family Medicine; Visit Provider Psychiatry & Neurology Neurology | DX: I63.9 Cerebral infarction, unspecified (principal) | CPT/HCPCS: 93246 ==

== ENCOUNTER 2024-11-25 07:54 | Outpatient (CLI) | payer MEDICARE, BC, SELFPAY ==
--- NOTE | 2024-11-25 09:26 | W.CARDEVENT ---
Date of service: 11/25/24 Time of Service: 09:26 Cardiac Event Recorder Referring Provider:: Feli Mazariegos Indications:: Transient cerebral ischemia Cardiac Event Note: This is a cardiac event monitor. Patient was monitored for 13 days and 3 hours Rhythm throughout was sinus with an average heart rate of 55. Minimum was 38, maximum 115 There were occasional ventricular ectopic beats, rare couplets. There were 2 ventricular triplets There were frequent atrial premature beats comprising 13% of total. There were 38 self-limited atrial runs. The longest of these was 9 beats in duration There was no atrial fibrillation, no high-grade AV block, no pauses greater than 3 seconds No symptoms were reported
== END 2024-11-25 07:55 | disposition home or self-care (01) ==
LOC: CARDOPNVT 07:54
PROVIDERS: PCP Family Medicine; Visit Provider Internal Medicine Cardiovascular Disease
DX: G45.9 Transient cerebral ischemic attack, unspecified (principal); I49.3 Ventricular premature depolarization; I49.1 Atrial premature depolarization
CPT/HCPCS: 93248